=== PATIENT | female | born 1960 | race Caucasian/White ===

== ENCOUNTER 2017-05-08 13:43 | Emergency (ER) | payer MEDICAID ==
[~2017-05-08 13:43] MED LIST: ALBU6.7H INH; AMIT-106 PO; CAMP85GE TP; CEPH-572 PO; CHLO50TA24 PO; CYCL-1 PO; DIPH-423 PO; DOXY50CA2 PO; HYDR-569 PO; MECL-111 PO; MUPI15CR12 TOP; NAPR-1166 PO; NITR100C PO; OMEP20TA5 PO; ONDA4TAB12 PO; ONDA8TAB9 PO; PERM60CR19 TP; PHEN-824 PO; PIP1KIT21 TP; PIP1KIT5 TP; PIPE59SH TOP; albut
== END 2017-05-08 14:17 | disposition left against medical advice (07) ==
LOC: ER 13:44
DX: B85.1 Pediculosis due to Pediculus humanus corporis (principal); Z53.21 Procedure and treatment not carried out due to patient leaving prior to being seen by health care provider

== ENCOUNTER → 2017-05-14 | Emergency (ER) | payer MEDICAID ==
[~2017-05-14] VITALS: Ht 165.1 cm; Wt 57.1 kg
[2017-05-14 05:55] VITALS: BP 115/79
== END | disposition left against medical advice (07) ==
LOC: ER 14:31
DX: R05 Cough (principal); J00 Acute nasopharyngitis [common cold]; R68.89 Other general symptoms and signs; Z53.21 Procedure and treatment not carried out due to patient leaving prior to being seen by health care provider
CPT/HCPCS: 99281

== ENCOUNTER 2017-06-21 12:17 | Emergency (ER) | payer MEDICAID ==
[~2017-06-21 12:17] MED LIST changes: +ONDA4TAB9 PO; +PROC5TAB56 PO
== END 2017-06-21 15:20 | disposition left against medical advice (07) ==
LOC: ER 12:18
DX: L02.818 Cutaneous abscess of other sites (principal); Z53.21 Procedure and treatment not carried out due to patient leaving prior to being seen by health care provider

== ENCOUNTER 2017-06-23 08:53 | Emergency (ER) | payer MEDICAID ==
[~2017-06-23] VITALS: Ht 165.1 cm; Wt 55.9 kg
[2017-06-23] MEDS ORDERED: CLIN-80 PO (09:37)
[2017-06-23] MEDS ORDERED: PERM60CR19 TP (09:37)
[2017-06-23 09:50] VITALS: BP 124/80
== END 2017-06-23 09:51 | disposition home or self-care (01) ==
LOC: ER 09:01
DX: L02.414 Cutaneous abscess of left upper limb (principal); B86 Scabies; K21.9 Gastro-esophageal reflux disease without esophagitis; G89.29 Other chronic pain; F12.10 Cannabis abuse, uncomplicated; F15.10 Other stimulant abuse, uncomplicated; F11.10 Opioid abuse, uncomplicated; Z90.710 Acquired absence of both cervix and uterus; Z86.14 Personal history of Methicillin resistant Staphylococcus aureus infection; Z86.19 Personal history of other infectious and parasitic diseases; Z60.2 Problems related to living alone; Z59.0 Homelessness; Z88.6 Allergy status to analgesic agent; Z88.8 Allergy status to other drugs, medicaments and biological substances; Z79.899 Other long term (current) drug therapy
CPT/HCPCS: 99283

== ENCOUNTER 2017-07-12 05:51 | Emergency (ER) | payer MEDICAID ==
[~2017-07-12] VITALS: Ht 165.1 cm; Wt 54.2 kg
[~2017-07-12 05:51] MED LIST changes: +CLIN-80 PO; -ONDA4TAB9 PO
[2017-07-12] MEDS ORDERED: ondansetron 4mg rapidly disintigrating tab PO ONE (08:35)
[2017-07-12] MEDS ORDERED: hydrOXYzine 25 MG tablet PO PRN (08:35)
[2017-07-12] MEDS ORDERED: HYDR-3686 PO (08:43)
[2017-07-12] MEDS ORDERED: ONDA8TAB9 PO (08:43)
[2017-07-12 09:11] VITALS: BP 120/81
== END 2017-07-12 09:16 | disposition home or self-care (01) ==
LOC: ER 05:52
DX: R42 Dizziness and giddiness (principal); K21.9 Gastro-esophageal reflux disease without esophagitis; G89.29 Other chronic pain; F17.200 Nicotine dependence, unspecified, uncomplicated; F12.10 Cannabis abuse, uncomplicated; F15.10 Other stimulant abuse, uncomplicated; F11.10 Opioid abuse, uncomplicated; Z90.710 Acquired absence of both cervix and uterus; Z86.14 Personal history of Methicillin resistant Staphylococcus aureus infection; Z60.2 Problems related to living alone; Z59.0 Homelessness; Z88.8 Allergy status to other drugs, medicaments and biological substances; Z88.1 Allergy status to other antibiotic agents; Z88.6 Allergy status to analgesic agent; Z79.899 Other long term (current) drug therapy
CPT/HCPCS: 99284; Q0177

== ENCOUNTER 2017-07-22 21:25 | Emergency (ER) | payer MEDICAID ==
[~2017-07-22] VITALS: Ht 165.1 cm; Wt 55.5 kg
[~2017-07-22 21:25] MED LIST changes: +HYDR-3686 PO
[2017-07-22 22:33] VITALS: BP 150/75
== END 2017-07-22 23:10 | disposition home or self-care (01) ==
LOC: ER 21:26
DX: F20.9 Schizophrenia, unspecified (principal); F41.9 Anxiety disorder, unspecified; F31.9 Bipolar disorder, unspecified; G89.29 Other chronic pain; K21.9 Gastro-esophageal reflux disease without esophagitis; Z86.14 Personal history of Methicillin resistant Staphylococcus aureus infection; Z90.710 Acquired absence of both cervix and uterus; Z90.89 Acquired absence of other organs; F12.10 Cannabis abuse, uncomplicated; F11.10 Opioid abuse, uncomplicated; F15.10 Other stimulant abuse, uncomplicated; Z88.6 Allergy status to analgesic agent; Z88.1 Allergy status to other antibiotic agents; Z88.8 Allergy status to other drugs, medicaments and biological substances; Z79.899 Other long term (current) drug therapy; Z60.2 Problems related to living alone; Z59.0 Homelessness
CPT/HCPCS: 99284

== ENCOUNTER 2017-07-27 23:53 | Emergency (ER) | payer MEDICAID ==
[~2017-07-27] VITALS: Ht 165.1 cm; Wt 50.0 kg
[2017-07-28] MEDS ORDERED: aspirin 325mg tablet PO ONE (02:05)
[2017-07-28] MEDS ORDERED: ONDA8TAB13 PO (02:05)
[2017-07-28] MEDS ORDERED: ondansetron 4mg rapidly disintigrating tab PO ONE (02:05)
[2017-07-28 02:30] VITALS: BP 128/77
== END 2017-07-28 02:32 | disposition home or self-care (01) ==
LOC: ER 23:53
DX: B34.9 Viral infection, unspecified (principal); F12.10 Cannabis abuse, uncomplicated; F15.10 Other stimulant abuse, uncomplicated; F11.10 Opioid abuse, uncomplicated; G89.29 Other chronic pain; K21.9 Gastro-esophageal reflux disease without esophagitis; Z86.14 Personal history of Methicillin resistant Staphylococcus aureus infection; Z90.710 Acquired absence of both cervix and uterus; Z90.89 Acquired absence of other organs; Z88.6 Allergy status to analgesic agent; Z88.1 Allergy status to other antibiotic agents; Z88.8 Allergy status to other drugs, medicaments and biological substances; Z79.899 Other long term (current) drug therapy; Z59.0 Homelessness; Z60.2 Problems related to living alone
CPT/HCPCS: 99284

== ENCOUNTER 2017-07-31 13:00 | Emergency (ER) | payer MEDICAID ==
[~2017-07-31] VITALS: Ht 160 cm; Wt 50.0 kg
[~2017-07-31 13:00] MED LIST changes: +ONDA8TAB13 PO
[2017-07-31 13:10] VITALS: BP 112/63
[2017-07-31] MEDS ORDERED: CefTRIAXone 250MG IM Kit w/LIDOcaine IM ONE (13:20)
[2017-07-31] MEDS ORDERED: DOXY100C43 PO (13:21)
[2017-07-31 14:24] LABS: CLARITY,URINE CLEAR (Clear); COLOR,URINE YELLOW (Yellow); GLUCOSE, URINE NEGATIVE (Neg); KETONES,URINE TRACE mg/dl (Neg); LEUKOCYTE ESTERASE ,URINE NEGATIVE (Neg); NITRITES, URINE NEGATIVE (Neg); OCCULT BLOOD,URINE NEGATIVE (Neg); PH,URINE 5.5 (4.8-8.0); PROTEIN,URINE 30 mg/dl (Neg)
[2017-07-31 14:25] LABS: UA COLLECTION TYPE CLN CATCH MIDSTREAM
[2017-07-31 14:34] LABS: MUCUS STRANDS MODERATE /LPF (Neg); SQUAMOUS EPITHELIAL CELL,UR FEW /LPF (FEW)
[2017-07-31 14:37] LABS: BACTERIA,URINE 1+ /HPF (Neg)
[2017-07-31 14:38] LABS: RBC,URINE 0-2 /HPF (0-2); WBC,URINE 0-4 /HPF (0-4)
== END 2017-07-31 14:14 | disposition home or self-care (01) ==
LOC: ER 13:00
DX: A64 Unspecified sexually transmitted disease (principal); K21.9 Gastro-esophageal reflux disease without esophagitis; F12.10 Cannabis abuse, uncomplicated; F15.10 Other stimulant abuse, uncomplicated; G89.29 Other chronic pain; Z90.710 Acquired absence of both cervix and uterus; Z59.0 Homelessness; Z88.6 Allergy status to analgesic agent; Z79.899 Other long term (current) drug therapy
CPT/HCPCS: 36415; 81001; 87491; 87591; 96372; 99284; J0696

== ENCOUNTER 2017-09-27 16:29 | Emergency (ER) | payer MEDICAID ==
[~2017-09-27] VITALS: Ht 165.1 cm; Wt 50.0 kg
[2017-09-27 16:50] VITALS: BP 156/92
== END 2017-09-27 18:01 | disposition home or self-care (01) ==
LOC: ER 16:29
DX: S30.850A Superficial foreign body of lower back and pelvis, initial encounter (principal); F12.10 Cannabis abuse, uncomplicated; F15.10 Other stimulant abuse, uncomplicated; F11.10 Opioid abuse, uncomplicated; G89.29 Other chronic pain; K21.9 Gastro-esophageal reflux disease without esophagitis; Z90.710 Acquired absence of both cervix and uterus; Z86.14 Personal history of Methicillin resistant Staphylococcus aureus infection; Z90.89 Acquired absence of other organs; Z88.6 Allergy status to analgesic agent; Z88.1 Allergy status to other antibiotic agents; Z88.8 Allergy status to other drugs, medicaments and biological substances; Z79.899 Other long term (current) drug therapy; Z60.2 Problems related to living alone; Z59.0 Homelessness; W22.8XXA Striking against or struck by other objects, initial encounter; Y93.89 Activity, other specified; Y92.89 Other specified places as the place of occurrence of the external cause; Y99.8 Other external cause status
CPT/HCPCS: 99284

== ENCOUNTER 2017-11-17 14:30 | Emergency (ER) | payer MEDICAID ==
[~2017-11-17] VITALS: Ht 165.1 cm; Wt 52.0 kg
[~2017-11-17 14:30] MED LIST changes: -CLIN-80 PO; +CLIN150C8 PO; +CLIN300C85 PO
[2017-11-17 14:37] VITALS: BP 123/57
[2017-11-17] MEDS ORDERED: ondansetron 4mg rapidly disintigrating tab PO ONE (15:05)
[2017-11-17] MEDS ORDERED: DOXY100C43 PO (15:17)
[2017-11-17] MEDS ORDERED: ONDA4TAB6 PO (15:17)
[2017-11-25] MEDS ORDERED: PERM59LI8 TOP (09:00)
== END 2017-11-17 15:27 | disposition home or self-care (01) ==
LOC: ER 14:30
DX: M54.5 Low back pain (principal); R11.0 Nausea; M79.1 Myalgia; K21.9 Gastro-esophageal reflux disease without esophagitis; G89.29 Other chronic pain; F12.90 Cannabis use, unspecified, uncomplicated; F15.90 Other stimulant use, unspecified, uncomplicated; F11.90 Opioid use, unspecified, uncomplicated; Z90.710 Acquired absence of both cervix and uterus; Z98.51 Tubal ligation status; Z59.0 Homelessness; Z88.8 Allergy status to other drugs, medicaments and biological substances; Z88.1 Allergy status to other antibiotic agents; Z88.6 Allergy status to analgesic agent; Z79.899 Other long term (current) drug therapy
CPT/HCPCS: 99283

== ENCOUNTER 2017-11-29 18:23 | Emergency (ER) | payer MEDICAID ==
[~2017-11-29 18:23] MED LIST changes: +ONDA4TAB6 PO; +PERM59LI8 TOP
== END 2017-11-29 19:13 | disposition left against medical advice (07) ==
LOC: ER 18:24
DX: Z00.8 Encounter for other general examination (principal); Z53.21 Procedure and treatment not carried out due to patient leaving prior to being seen by health care provider

== ENCOUNTER 2017-12-21 16:18 | Emergency (ER) | payer MEDICAID ==
[~2017-12-21] VITALS: Ht 165.1 cm; Wt 48.0 kg
[2017-12-21 16:31] VITALS: BP 119/70
[2017-12-21] MEDS ORDERED: TETanus/Pertussis (Acell)/Diphther VAC/PF (Tdap-Adult) 0.5ml syringe IM ONE (18:40)
[2017-12-21] MEDS ORDERED: acetaminophen 325mg tablet PO ONE (18:40)
[2017-12-21] MEDS ORDERED: sulfamethoxazole/trimethoprim DS (800/160mg) tablet PO ONE (18:40)
[2017-12-21] MEDS ORDERED: SULF1TAB49 PO (18:40)
== END 2017-12-21 18:59 | disposition home or self-care (01) ==
LOC: ER 16:19
DX: S91.332A Puncture wound without foreign body, left foot, initial encounter (principal); L84 Corns and callosities; K21.9 Gastro-esophageal reflux disease without esophagitis; G89.29 Other chronic pain; F12.90 Cannabis use, unspecified, uncomplicated; F15.90 Other stimulant use, unspecified, uncomplicated; F11.90 Opioid use, unspecified, uncomplicated; Z86.19 Personal history of other infectious and parasitic diseases; Z86.14 Personal history of Methicillin resistant Staphylococcus aureus infection; Z90.49 Acquired absence of other specified parts of digestive tract; Z90.710 Acquired absence of both cervix and uterus; Z98.51 Tubal ligation status; Z60.2 Problems related to living alone; Z59.0 Homelessness; Z88.8 Allergy status to other drugs, medicaments and biological substances; Z88.6 Allergy status to analgesic agent; Z88.1 Allergy status to other antibiotic agents; Z79.899 Other long term (current) drug therapy; X58.XXXA Exposure to other specified factors, initial encounter; Y93.89 Activity, other specified; Y92.89 Other specified places as the place of occurrence of the external cause; Y99.8 Other external cause status
CPT/HCPCS: 99283

== ENCOUNTER 2017-12-24 23:41 | Emergency (ER) | payer MEDICAID ==
[~2017-12-24] VITALS: Ht 165.1 cm; Wt 51.0 kg
[~2017-12-24 23:41] MED LIST changes: +SULF1TAB49 PO
[2017-12-24 23:55] VITALS: BP 157/71
[2017-12-25] MEDS ORDERED: acetaminophen 325mg tablet PO ONE (01:00)
== END 2017-12-25 01:40 | disposition home or self-care (01) ==
LOC: ER 23:41
DX: S60.212A Contusion of left wrist, initial encounter (principal); K21.9 Gastro-esophageal reflux disease without esophagitis; G89.29 Other chronic pain; F12.90 Cannabis use, unspecified, uncomplicated; F15.90 Other stimulant use, unspecified, uncomplicated; F11.90 Opioid use, unspecified, uncomplicated; Z86.14 Personal history of Methicillin resistant Staphylococcus aureus infection; Z90.710 Acquired absence of both cervix and uterus; Z90.89 Acquired absence of other organs; Z88.6 Allergy status to analgesic agent; Z88.1 Allergy status to other antibiotic agents; Z88.8 Allergy status to other drugs, medicaments and biological substances; Z79.899 Other long term (current) drug therapy; Z59.0 Homelessness; Z60.2 Problems related to living alone; W01.0XXA Fall on same level from slipping, tripping and stumbling without subsequent striking against object, initial encounter; Y93.89 Activity, other specified; Y92.89 Other specified places as the place of occurrence of the external cause; Y99.8 Other external cause status
CPT/HCPCS: 99282

== ENCOUNTER 2018-01-06 07:41 | Emergency (ER) | payer MEDICAID ==
[~2018-01-06] VITALS: Ht 165.1 cm; Wt 50.5 kg
[~2018-01-06 07:41] MED LIST changes: -SULF1TAB49 PO
[2018-01-06 08:44] VITALS: BP 123/58
[2018-01-07] MEDS ORDERED: DOXY100C2 PO (18:23)
[2018-01-08] MEDS ORDERED: PERM60CR19 TP (13:18)
[2018-01-08] MEDS ORDERED: IVER3TAB2 PO (13:25)
== END 2018-01-06 09:19 | disposition home or self-care (01) ==
LOC: ER 07:42
DX: S52.502A Unspecified fracture of the lower end of left radius, initial encounter for closed fracture (principal); F17.200 Nicotine dependence, unspecified, uncomplicated; F12.10 Cannabis abuse, uncomplicated; F15.10 Other stimulant abuse, uncomplicated; F11.10 Opioid abuse, uncomplicated; K21.9 Gastro-esophageal reflux disease without esophagitis; G89.29 Other chronic pain; M54.9 Dorsalgia, unspecified; Z90.710 Acquired absence of both cervix and uterus; Z59.0 Homelessness; Z98.51 Tubal ligation status; Z88.6 Allergy status to analgesic agent; Z88.1 Allergy status to other antibiotic agents; Z88.8 Allergy status to other drugs, medicaments and biological substances; W18.30XA Fall on same level, unspecified, initial encounter; Y93.89 Activity, other specified; Y92.89 Other specified places as the place of occurrence of the external cause; Y99.8 Other external cause status
CPT/HCPCS: 29125; 99284; A4565

== ENCOUNTER 2018-01-18 11:00 | Outpatient (CLI) | payer MEDICAID ==
[2018-01-18 11:00] VITALS: BP 119/61
[~2018-01-18 11:00] MED LIST changes: +DOXY100C2 PO; +IVER3TAB2 PO
== END 2018-01-18 11:52 | disposition home or self-care (01) ==
LOC: ORTHO 11:00
PROVIDERS: ATTEND Nurse Practitioner Family
DX: S52.572A Other intraarticular fracture of lower end of left radius, initial encounter for closed fracture (principal); F17.210 Nicotine dependence, cigarettes, uncomplicated; F12.90 Cannabis use, unspecified, uncomplicated; Z59.0 Homelessness; Z56.0 Unemployment, unspecified; Z60.2 Problems related to living alone; Z88.1 Allergy status to other antibiotic agents; Z88.8 Allergy status to other drugs, medicaments and biological substances; Z90.710 Acquired absence of both cervix and uterus; Z88.6 Allergy status to analgesic agent; X58.XXXA Exposure to other specified factors, initial encounter; Y93.89 Activity, other specified; Y92.89 Other specified places as the place of occurrence of the external cause; Y99.8 Other external cause status
CPT/HCPCS: 73110; 99213; A4590

== ENCOUNTER 2018-01-27 17:15 | Emergency (ER) | payer MEDICAID ==
[~2018-01-27] VITALS: Ht 165.1 cm; Wt 51.0 kg
[~2018-01-27 17:15] MED LIST changes: -DOXY100C2 PO
[2018-01-27 17:22] VITALS: BP 115/53
[2018-01-27] MEDS ORDERED: diphenhydrAMINE 50 mg/ml inj IM ONE (17:35)
== END 2018-01-27 17:50 | disposition home or self-care (01) ==
LOC: ER 17:16
DX: T63.481A Toxic effect of venom of other arthropod, accidental (unintentional), initial encounter (principal); M79.602 Pain in left arm; K21.9 Gastro-esophageal reflux disease without esophagitis; G89.29 Other chronic pain; M54.9 Dorsalgia, unspecified; F12.90 Cannabis use, unspecified, uncomplicated; Z90.710 Acquired absence of both cervix and uterus; Z98.51 Tubal ligation status; Z90.89 Acquired absence of other organs; Z59.0 Homelessness; Z56.0 Unemployment, unspecified; Z88.6 Allergy status to analgesic agent; Z88.1 Allergy status to other antibiotic agents; Z88.8 Allergy status to other drugs, medicaments and biological substances; Y92.89 Other specified places as the place of occurrence of the external cause
CPT/HCPCS: 96372; 99283; J1200

== ENCOUNTER 2018-01-30 14:27 | Emergency (ER) | payer MEDICAID ==
[~2018-01-30] VITALS: Ht 165.1 cm; Wt 51.0 kg
[2018-01-30 14:54] VITALS: BP 117/59
== END 2018-01-30 15:33 | disposition left against medical advice (07) ==
LOC: ER 14:29
DX: M25.532 Pain in left wrist (principal); Z53.21 Procedure and treatment not carried out due to patient leaving prior to being seen by health care provider

== ENCOUNTER 2018-03-18 09:50 | Emergency (ER) | payer MEDICAID ==
[~2018-03-18] VITALS: Ht 165.1 cm; Wt 50.0 kg
[~2018-03-18 09:50] MED LIST changes: +ACET-812 PO; +HYDR-4383 PO; -HYDR-569 PO
[2018-03-18 09:53] VITALS: BP 118/62
[2018-03-18] MEDS ORDERED: DOXY100C43 PO (11:01)
[2018-03-18] MEDS ORDERED: FLUT1BLS3 INH (11:01)
[2018-03-18] MEDS ORDERED: ALBU8.5H8 IH (11:01)
== END 2018-03-18 11:08 | disposition home or self-care (01) ==
LOC: ER 09:51
DX: M79.642 Pain in left hand (principal); J44.9 Chronic obstructive pulmonary disease, unspecified; R05 Cough; K21.9 Gastro-esophageal reflux disease without esophagitis; G89.29 Other chronic pain; F12.90 Cannabis use, unspecified, uncomplicated; F17.210 Nicotine dependence, cigarettes, uncomplicated; Z59.0 Homelessness; Z56.0 Unemployment, unspecified; Z87.01 Personal history of pneumonia (recurrent); Z90.710 Acquired absence of both cervix and uterus; Z98.51 Tubal ligation status; Z79.899 Other long term (current) drug therapy; Z88.1 Allergy status to other antibiotic agents; Z88.6 Allergy status to analgesic agent
CPT/HCPCS: 71045; 73130; 99284

== ENCOUNTER 2018-04-01 19:31 | Emergency (ER) | payer MEDICAID ==
[~2018-04-01] VITALS: Ht 165.1 cm; Wt 51.3 kg
[~2018-04-01 19:31] MED LIST changes: -ACET-812 PO; +ALBU8.5H8 IH; +FLUT1BLS3 INH
[2018-04-01 19:37] VITALS: BP 126/51
[2018-04-01] MEDS ORDERED: naproxen 500mg tablet PO ONE (21:35)
== END 2018-04-01 21:45 | disposition home or self-care (01) ==
LOC: ER 19:32
DX: M25.552 Pain in left hip (principal); R51 Headache; M54.5 Low back pain; K21.9 Gastro-esophageal reflux disease without esophagitis; G89.29 Other chronic pain; F12.90 Cannabis use, unspecified, uncomplicated; F17.200 Nicotine dependence, unspecified, uncomplicated; Z88.1 Allergy status to other antibiotic agents; Z88.6 Allergy status to analgesic agent; Z88.8 Allergy status to other drugs, medicaments and biological substances; Z79.899 Other long term (current) drug therapy; Z90.710 Acquired absence of both cervix and uterus; Z98.51 Tubal ligation status; Z90.89 Acquired absence of other organs; Z56.0 Unemployment, unspecified; Z59.0 Homelessness; Z60.2 Problems related to living alone; Z87.440 Personal history of urinary (tract) infections; Y04.8XXA Assault by other bodily force, initial encounter; Y93.89 Activity, other specified; Y92.098 Other place in other non-institutional residence as the place of occurrence of the external cause; Y99.8 Other external cause status
CPT/HCPCS: 99282

== ENCOUNTER 2018-04-23 16:15 | Emergency (ER) | payer MEDICAID ==
[~2018-04-23] VITALS: Ht 165.1 cm; Wt 50.0 kg
[2018-04-23 17:12] VITALS: BP 131/35
== END 2018-04-23 18:30 | disposition home or self-care (01) ==
LOC: ER 16:16
DX: F41.9 Anxiety disorder, unspecified (principal); F32.9 Major depressive disorder, single episode, unspecified; R45.1 Restlessness and agitation; L98.8 Other specified disorders of the skin and subcutaneous tissue; K21.9 Gastro-esophageal reflux disease without esophagitis; G89.29 Other chronic pain; F20.9 Schizophrenia, unspecified; F12.90 Cannabis use, unspecified, uncomplicated; Z76.0 Encounter for issue of repeat prescription; Z59.0 Homelessness; Z56.0 Unemployment, unspecified; Z88.8 Allergy status to other drugs, medicaments and biological substances; Z88.6 Allergy status to analgesic agent; Z79.899 Other long term (current) drug therapy
CPT/HCPCS: 99284

== ENCOUNTER 2018-05-12 16:25 | Emergency (ER) | payer MEDICAID ==
[~2018-05-12] VITALS: Ht 165.1 cm; Wt 55.1 kg
[2018-05-12 16:33] VITALS: BP 139/65
[2018-05-12] MEDS ORDERED: loperamide 2mg capsule PO ONE (17:00)
[2018-05-12] MEDS ORDERED: LOPE2TAB25 PO (17:07)
== END 2018-05-12 17:30 | disposition home or self-care (01) ==
LOC: ER 16:26
DX: R19.7 Diarrhea, unspecified (principal); R10.9 Unspecified abdominal pain; R06.02 Shortness of breath; R50.9 Fever, unspecified; K21.9 Gastro-esophageal reflux disease without esophagitis; G89.29 Other chronic pain; Z86.14 Personal history of Methicillin resistant Staphylococcus aureus infection; F12.90 Cannabis use, unspecified, uncomplicated; Z90.710 Acquired absence of both cervix and uterus; Z90.89 Acquired absence of other organs; Z98.51 Tubal ligation status; Z88.1 Allergy status to other antibiotic agents; Z88.6 Allergy status to analgesic agent; Z88.8 Allergy status to other drugs, medicaments and biological substances; Z79.899 Other long term (current) drug therapy; Z56.0 Unemployment, unspecified; Z59.0 Homelessness; Z60.2 Problems related to living alone
CPT/HCPCS: 99284

== ENCOUNTER 2018-06-19 19:43 | Emergency (ER) | payer MEDICAID ==
[~2018-06-19] VITALS: Ht 165.1 cm; Wt 56.8 kg
[~2018-06-19 19:43] MED LIST changes: +LOPE2TAB25 PO
[2018-06-19 20:05] VITALS: BP 143/75
--- NOTE | 2018-06-19 20:09 | NUR ---
I GAVE PT A PAIR OF SOCKS.
== END 2018-06-19 22:39 | disposition home or self-care (01) ==
LOC: ER 19:45
DX: F20.9 Schizophrenia, unspecified (principal); F31.9 Bipolar disorder, unspecified; F41.9 Anxiety disorder, unspecified; K21.9 Gastro-esophageal reflux disease without esophagitis; G89.29 Other chronic pain; F12.90 Cannabis use, unspecified, uncomplicated; Z88.8 Allergy status to other drugs, medicaments and biological substances; Z88.6 Allergy status to analgesic agent; Z79.899 Other long term (current) drug therapy; Z90.710 Acquired absence of both cervix and uterus; Z98.51 Tubal ligation status; Z90.89 Acquired absence of other organs; Z59.0 Homelessness; Z56.0 Unemployment, unspecified; Z60.2 Problems related to living alone; Z87.19 Personal history of other diseases of the digestive system
CPT/HCPCS: 99284

== ENCOUNTER 2018-07-02 07:32 | Emergency (ER) | payer MEDICAID ==
[~2018-07-02] VITALS: Ht 165.1 cm; Wt 68.2 kg
[2018-07-02 07:35] VITALS: BP 105/66
[2018-07-02] MEDS ORDERED: pantoprazole 40mg Tablet.DR PO ONE (07:55)
[2018-07-02] MEDS ORDERED: famotidine 20mg tablet PO ONE (07:55)
[2018-07-02] MEDS ORDERED: mag hydrox/Alum hydrox/simeth 30ml oral suspension PO ONE (07:55)
[2018-07-02] MEDS ORDERED: LIDOcaine Viscous 15ml cup PO ONE (07:55)
[2018-07-02] MEDS ORDERED: RANI150T44 PO (08:11)
--- NOTE | 2018-07-02 08:20 | NUR ---
Pt requested to go to cafeteria to purchase breakfast. Spoke with security, who stated that because of the pt previously trespassing in the hospital she would not be allowed in our cafeteria. When I told this to the pt, she stated that "what assholes, you guys are all assholes". She then took the sack lunch from my hand and ambulated out of the ED with steady gait.
--- NOTE | 2018-07-02 08:22 | NUR ---
Pt now requesting bus pass from ER registration. Pt given bus pass.
== END 2018-07-02 08:28 | disposition home or self-care (01) ==
LOC: ER 07:33
DX: K21.9 Gastro-esophageal reflux disease without esophagitis (principal); G89.29 Other chronic pain; F12.90 Cannabis use, unspecified, uncomplicated; Z88.1 Allergy status to other antibiotic agents; Z88.8 Allergy status to other drugs, medicaments and biological substances; Z88.6 Allergy status to analgesic agent; Z79.899 Other long term (current) drug therapy; Z87.19 Personal history of other diseases of the digestive system; Z90.710 Acquired absence of both cervix and uterus; Z90.89 Acquired absence of other organs; Z98.51 Tubal ligation status; Z60.2 Problems related to living alone; Z56.0 Unemployment, unspecified; Z59.0 Homelessness; Z87.440 Personal history of urinary (tract) infections
CPT/HCPCS: 93005; 99284

== ENCOUNTER 2018-07-02 23:51 | Emergency (ER) | payer MEDICAID ==
[~2018-07-02] VITALS: Ht 165.1 cm; Wt 45.0 kg
[~2018-07-02 23:51] MED LIST changes: +CLIN-96 PO; -CLIN300C85 PO; +RANI150T44 PO
[2018-07-03 00:06] VITALS: BP 128/59
[2018-07-03] MEDS ORDERED: LORazepam 1 MG tablet PO ONE ×2 (00:55→01:00)
--- NOTE | 2018-07-03 04:00 | NUR ---
Patient states she is not acutally suicidal and that really just needs a place stay, but the [facility] kicked her out. After calling the [facility], it was decided that she can return in the morning for breakfast. She will then be able to attend the drug and alcohol meeting for potential addmission into the [facility]. Patient stated that she was interested in using these resources.
== END 2018-07-03 04:22 | disposition home or self-care (01) ==
LOC: ER 23:52
DX: R45.851 Suicidal ideations (principal); F41.9 Anxiety disorder, unspecified; F32.9 Major depressive disorder, single episode, unspecified; F20.9 Schizophrenia, unspecified; K21.9 Gastro-esophageal reflux disease without esophagitis; G89.29 Other chronic pain; F12.90 Cannabis use, unspecified, uncomplicated; Z88.1 Allergy status to other antibiotic agents; Z88.6 Allergy status to analgesic agent; Z88.8 Allergy status to other drugs, medicaments and biological substances; Z79.899 Other long term (current) drug therapy; Z60.2 Problems related to living alone; Z59.0 Homelessness; Z56.0 Unemployment, unspecified; Z86.14 Personal history of Methicillin resistant Staphylococcus aureus infection; Z86.19 Personal history of other infectious and parasitic diseases; Z90.710 Acquired absence of both cervix and uterus; Z98.51 Tubal ligation status
CPT/HCPCS: 99282

== ENCOUNTER 2018-08-29 21:20 | Emergency (ER) | payer MEDICAID | END 2018-08-29 21:50 | disposition left against medical advice (07) | LOC: ER 21:21 | DX: Z53.21 Procedure and treatment not carried out due to patient leaving prior to being seen by health care provider (principal) ==

== ENCOUNTER 2018-09-12 22:37 | Emergency (ER) | payer MEDICAID ==
[~2018-09-12] VITALS: Ht 165.1 cm; Wt 57.6 kg
[2018-09-12 23:11] VITALS: BP 146/67
[2018-09-13] MEDS ORDERED: diphenhydrAMINE 25mg capsule PO ONE (01:20)
[2018-09-13] MEDS ORDERED: LORazepam 1 MG tablet PO ONE (01:20)
== END 2018-09-13 02:11 | disposition home or self-care (01) ==
LOC: ER 22:38
DX: R21 Rash and other nonspecific skin eruption (principal); F12.90 Cannabis use, unspecified, uncomplicated; K21.9 Gastro-esophageal reflux disease without esophagitis; G89.29 Other chronic pain; Z86.14 Personal history of Methicillin resistant Staphylococcus aureus infection; Z90.710 Acquired absence of both cervix and uterus; Z90.89 Acquired absence of other organs; Z98.51 Tubal ligation status; Z88.6 Allergy status to analgesic agent; Z88.1 Allergy status to other antibiotic agents; Z88.8 Allergy status to other drugs, medicaments and biological substances; Z79.899 Other long term (current) drug therapy; Z56.0 Unemployment, unspecified; Z59.0 Homelessness; Z60.2 Problems related to living alone
CPT/HCPCS: 99283; Q0163

== ENCOUNTER 2018-09-21 10:37 | Emergency (ER) | payer MEDICAID ==
[~2018-09-21] VITALS: Ht 165.1 cm; Wt 50.0 kg
[2018-09-21] MEDS ORDERED: hydrOXYzine 10 MG tablet PO ONE (11:40)
[2018-09-21] MEDS ORDERED: HYDR-3686 PO (11:58)
[2018-09-21 12:35] VITALS: BP 130/60
== END 2018-09-21 12:20 | disposition home or self-care (01) ==
LOC: ER 10:37
DX: L29.9 Pruritus, unspecified (principal); L08.89 Other specified local infections of the skin and subcutaneous tissue; F15.90 Other stimulant use, unspecified, uncomplicated; K21.9 Gastro-esophageal reflux disease without esophagitis; G89.29 Other chronic pain; F12.90 Cannabis use, unspecified, uncomplicated; Z59.0 Homelessness; Z86.14 Personal history of Methicillin resistant Staphylococcus aureus infection; Z86.19 Personal history of other infectious and parasitic diseases; Z90.710 Acquired absence of both cervix and uterus; Z90.49 Acquired absence of other specified parts of digestive tract; Z98.51 Tubal ligation status; Z56.0 Unemployment, unspecified; Z60.2 Problems related to living alone; Z88.8 Allergy status to other drugs, medicaments and biological substances; Z79.899 Other long term (current) drug therapy
CPT/HCPCS: 99283

== ENCOUNTER 2018-10-07 17:30 | Emergency (ER) | payer MEDICAID ==
[~2018-10-07] VITALS: Ht 165.1 cm; Wt 50.0 kg
[~2018-10-07 17:30] MED LIST changes: -AMIT-106 PO; +AMIT25TA9 PO; +RANI-648 PO; -RANI150T44 PO
[2018-10-07 17:47] VITALS: BP 130/70
[2018-10-07] MEDS ORDERED: MUPI22OI30 TOP (17:53)
== END 2018-10-08 18:05 | disposition home or self-care (01) ==
LOC: ER 10-08 00:28
DX: L08.9 Local infection of the skin and subcutaneous tissue, unspecified (principal); F15.10 Other stimulant abuse, uncomplicated; K21.9 Gastro-esophageal reflux disease without esophagitis; G89.29 Other chronic pain; Z86.14 Personal history of Methicillin resistant Staphylococcus aureus infection; F12.90 Cannabis use, unspecified, uncomplicated; Z90.89 Acquired absence of other organs; Z90.710 Acquired absence of both cervix and uterus; Z98.51 Tubal ligation status; Z88.6 Allergy status to analgesic agent; Z88.1 Allergy status to other antibiotic agents; Z88.8 Allergy status to other drugs, medicaments and biological substances; Z79.899 Other long term (current) drug therapy; Z56.0 Unemployment, unspecified; Z59.0 Homelessness; Z60.2 Problems related to living alone
CPT/HCPCS: 99283

== ENCOUNTER 2018-10-14 07:08 | Emergency (ER) | payer MEDICAID ==
[~2018-10-14] VITALS: Ht 165.1 cm; Wt 50.0 kg
[~2018-10-14 07:08] MED LIST changes: +MUPI22OI30 TOP
--- NOTE | 2018-10-14 09:30 | NUR ---
CLEANED PT FEET WITH WARM CLOTHS, ONLY HAD SIZE 8 FLIP FLOPS AND PT REFUSED LARGER SIZE, GAVE CUP OF COFFEE AND COMPLAINED THAT I DID NOT PUT ENOUGH SUGAR IN IT AND I PUT WHAT SHE ASKED, GAVE A BAG OF FOOD AND PT CONTINUED TO CURSE AND THROW THINGS ON THE FLOOR.
[2018-10-14 09:32] VITALS: BP 133/88
== END 2018-10-14 09:38 | disposition home or self-care (01) ==
LOC: ER 07:09
DX: L85.1 Acquired keratosis [keratoderma] palmaris et plantaris (principal); K21.9 Gastro-esophageal reflux disease without esophagitis; G89.29 Other chronic pain; F12.90 Cannabis use, unspecified, uncomplicated; F15.90 Other stimulant use, unspecified, uncomplicated; Z59.0 Homelessness; Z56.0 Unemployment, unspecified; Z90.710 Acquired absence of both cervix and uterus; Z98.51 Tubal ligation status; Z86.14 Personal history of Methicillin resistant Staphylococcus aureus infection; Z88.1 Allergy status to other antibiotic agents; Z88.6 Allergy status to analgesic agent; Z88.8 Allergy status to other drugs, medicaments and biological substances
CPT/HCPCS: 99283

== ENCOUNTER 2018-11-16 07:07 | Emergency (ER) | payer MEDICAID ==
[~2018-11-16 07:07] MED LIST changes: -MUPI22OI30 TOP
--- NOTE | 2018-11-16 08:18 | NUR ---
PT CALLED X3 TO TRIAGE, NIL. PROVIDER NOTIFIED, NO FURTHER ACTION REQUIRED.
== END 2018-11-16 08:15 | disposition left against medical advice (07) ==
LOC: ER 07:08
DX: Z00.8 Encounter for other general examination (principal); Z53.21 Procedure and treatment not carried out due to patient leaving prior to being seen by health care provider; Z79.899 Other long term (current) drug therapy

== ENCOUNTER 2018-11-27 06:46 | Emergency (ER) | payer MEDICAID ==
[~2018-11-27] VITALS: Ht 165.1 cm; Wt 50.0 kg
[~2018-11-27 06:46] MED LIST changes: -ALBU6.7H INH; +ALBU6.7H9 INH
[2018-11-27 06:48] VITALS: BP 135/69
[2018-11-27] MEDS ORDERED: MUPI22OI30 TOP (07:20)
== END 2018-11-27 07:41 | disposition home or self-care (01) ==
LOC: ER 06:46
DX: M79.672 Pain in left foot (principal); K21.9 Gastro-esophageal reflux disease without esophagitis; G89.29 Other chronic pain; Z86.14 Personal history of Methicillin resistant Staphylococcus aureus infection; F41.9 Anxiety disorder, unspecified; F32.9 Major depressive disorder, single episode, unspecified; F12.90 Cannabis use, unspecified, uncomplicated; F15.90 Other stimulant use, unspecified, uncomplicated; Z90.89 Acquired absence of other organs; Z90.710 Acquired absence of both cervix and uterus; Z98.51 Tubal ligation status; Z88.6 Allergy status to analgesic agent; Z88.1 Allergy status to other antibiotic agents; Z88.8 Allergy status to other drugs, medicaments and biological substances; Z79.899 Other long term (current) drug therapy; Z59.0 Homelessness; Z60.2 Problems related to living alone; Z56.0 Unemployment, unspecified
CPT/HCPCS: 99283

== ENCOUNTER 2018-12-06 10:34 | Emergency (ER) | payer MEDICAID ==
[~2018-12-06] VITALS: Ht 165.1 cm; Wt 55.9 kg
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
[2018-12-06] MEDS ORDERED: LORazepam 1 MG tablet PO ONE (11:30)
[2018-12-06 11:39] VITALS: BP 117/80
== END 2018-12-06 11:47 | disposition home or self-care (01) ==
LOC: ER 10:35
DX: Z60.9 Problem related to social environment, unspecified (principal); K21.9 Gastro-esophageal reflux disease without esophagitis; G89.29 Other chronic pain; F41.9 Anxiety disorder, unspecified; F32.9 Major depressive disorder, single episode, unspecified; F20.9 Schizophrenia, unspecified; F12.90 Cannabis use, unspecified, uncomplicated; F15.90 Other stimulant use, unspecified, uncomplicated; Z59.0 Homelessness; Z56.0 Unemployment, unspecified; Z90.710 Acquired absence of both cervix and uterus; Z98.890 Other specified postprocedural states; Z98.51 Tubal ligation status; Z88.8 Allergy status to other drugs, medicaments and biological substances; Z88.1 Allergy status to other antibiotic agents; Z88.6 Allergy status to analgesic agent; Z79.899 Other long term (current) drug therapy
CPT/HCPCS: 99282

== ENCOUNTER 2018-12-11 00:52 | Emergency (ER) | payer MEDICAID ==
[~2018-12-11] VITALS: Ht 165.1 cm; Wt 68.0 kg
[2018-12-11 00:56] VITALS: BP 122/68
== END 2018-12-11 03:44 | disposition home or self-care (01) ==
LOC: ER 00:53
DX: B19.20 Unspecified viral hepatitis C without hepatic coma (principal); K21.9 Gastro-esophageal reflux disease without esophagitis; G89.29 Other chronic pain; F41.9 Anxiety disorder, unspecified; F32.9 Major depressive disorder, single episode, unspecified; F20.9 Schizophrenia, unspecified; Z86.14 Personal history of Methicillin resistant Staphylococcus aureus infection; F12.90 Cannabis use, unspecified, uncomplicated; F15.90 Other stimulant use, unspecified, uncomplicated; Z90.710 Acquired absence of both cervix and uterus; Z98.51 Tubal ligation status; Z90.89 Acquired absence of other organs; Z60.2 Problems related to living alone; Z59.0 Homelessness; Z56.0 Unemployment, unspecified; Z88.1 Allergy status to other antibiotic agents; Z88.6 Allergy status to analgesic agent; Z88.8 Allergy status to other drugs, medicaments and biological substances; Z79.899 Other long term (current) drug therapy
CPT/HCPCS: 99281

== ENCOUNTER 2019-01-08 02:58 | Emergency (ER) | payer MEDICAID ==
[~2019-01-08] VITALS: Ht 165.1 cm; Wt 55.0 kg
[2019-01-08 03:03] VITALS: BP 135/66
--- NOTE | 2019-01-08 03:08 | NUR ---
SEEN BY MD IN TRIAGE
== END 2019-01-08 03:27 | disposition home or self-care (01) ==
LOC: ER 02:58
DX: R22.40 Localized swelling, mass and lump, unspecified lower limb (principal); K21.9 Gastro-esophageal reflux disease without esophagitis; G89.29 Other chronic pain; F41.9 Anxiety disorder, unspecified; F32.9 Major depressive disorder, single episode, unspecified; F20.9 Schizophrenia, unspecified; F12.90 Cannabis use, unspecified, uncomplicated; F15.90 Other stimulant use, unspecified, uncomplicated; Z86.19 Personal history of other infectious and parasitic diseases; Z86.14 Personal history of Methicillin resistant Staphylococcus aureus infection; Z90.710 Acquired absence of both cervix and uterus; Z98.51 Tubal ligation status; Z98.890 Other specified postprocedural states; Z59.0 Homelessness; Z56.0 Unemployment, unspecified; Z88.5 Allergy status to narcotic agent; Z88.6 Allergy status to analgesic agent; Z88.1 Allergy status to other antibiotic agents; Z88.8 Allergy status to other drugs, medicaments and biological substances; Z79.2 Long term (current) use of antibiotics; Z79.899 Other long term (current) drug therapy
CPT/HCPCS: 99281

== ENCOUNTER 2019-01-18 13:30 | Emergency (ER) | payer MEDICAID ==
[~2019-01-18] VITALS: Ht 165.1 cm; Wt 56.0 kg
[2019-01-18] MEDS ORDERED: ibuprofen tablet 400 MG TABLET PO ONE (14:15)
[2019-01-18 14:25] VITALS: BP 130/62
== END 2019-01-18 14:33 | disposition home or self-care (01) ==
LOC: ER 13:31
DX: G89.29 Other chronic pain (principal); M54.2 Cervicalgia; M25.551 Pain in right hip; M25.552 Pain in left hip; K21.9 Gastro-esophageal reflux disease without esophagitis; F41.9 Anxiety disorder, unspecified; F32.9 Major depressive disorder, single episode, unspecified; F20.9 Schizophrenia, unspecified; F17.200 Nicotine dependence, unspecified, uncomplicated; F12.90 Cannabis use, unspecified, uncomplicated; F15.90 Other stimulant use, unspecified, uncomplicated; Z86.14 Personal history of Methicillin resistant Staphylococcus aureus infection; Z86.19 Personal history of other infectious and parasitic diseases; Z90.710 Acquired absence of both cervix and uterus; Z98.51 Tubal ligation status; Z90.89 Acquired absence of other organs; Z60.2 Problems related to living alone; Z56.0 Unemployment, unspecified; Z59.0 Homelessness; Z88.1 Allergy status to other antibiotic agents; Z88.6 Allergy status to analgesic agent; Z88.8 Allergy status to other drugs, medicaments and biological substances; Z79.899 Other long term (current) drug therapy
CPT/HCPCS: 99282

== ENCOUNTER 2019-02-02 19:28 | Emergency (ER) | payer MEDICAID ==
[~2019-02-02] VITALS: Ht 165.1 cm; Wt 57.3 kg
[~2019-02-02 19:28] MED LIST changes: +CLIN-90 PO; -CLIN-96 PO
[2019-02-02] MEDS ORDERED: BENZ-16 PO (20:42)
[2019-02-02] MEDS ORDERED: ROBDML PO (20:42)
[2019-02-02 20:55] VITALS: BP 158/99
== END 2019-02-02 20:53 | disposition home or self-care (01) ==
LOC: ER 19:28
DX: R05 Cough (principal); R50.9 Fever, unspecified; R09.89 Other specified symptoms and signs involving the circulatory and respiratory systems; M79.18 Myalgia, other site; K21.9 Gastro-esophageal reflux disease without esophagitis; G89.29 Other chronic pain; F41.9 Anxiety disorder, unspecified; F32.9 Major depressive disorder, single episode, unspecified; F20.9 Schizophrenia, unspecified; F12.90 Cannabis use, unspecified, uncomplicated; F15.90 Other stimulant use, unspecified, uncomplicated; Z86.19 Personal history of other infectious and parasitic diseases; Z86.14 Personal history of Methicillin resistant Staphylococcus aureus infection; Z90.710 Acquired absence of both cervix and uterus; Z90.89 Acquired absence of other organs; Z98.51 Tubal ligation status; Z59.0 Homelessness; Z60.2 Problems related to living alone; Z56.0 Unemployment, unspecified; Z88.1 Allergy status to other antibiotic agents; Z88.6 Allergy status to analgesic agent; Z79.899 Other long term (current) drug therapy
CPT/HCPCS: 71045; 99283

== ENCOUNTER 2019-02-27 01:50 | Emergency (ER) | payer MEDICAID ==
[~2019-02-27] VITALS: Ht 165.1 cm; Wt 58.9 kg
[~2019-02-27 01:50] MED LIST changes: +BENZ-16 PO
[2019-02-27] MEDS ORDERED: BACDS PO (02:54)
[2019-02-27 03:08] VITALS: BP 146/68
== END 2019-02-27 03:10 | disposition home or self-care (01) ==
LOC: ER 01:51
DX: L02.31 Cutaneous abscess of buttock (principal); K21.9 Gastro-esophageal reflux disease without esophagitis; G89.29 Other chronic pain; F41.9 Anxiety disorder, unspecified; F32.9 Major depressive disorder, single episode, unspecified; F20.9 Schizophrenia, unspecified; F12.90 Cannabis use, unspecified, uncomplicated; F15.90 Other stimulant use, unspecified, uncomplicated; Z60.2 Problems related to living alone; Z59.0 Homelessness; Z56.0 Unemployment, unspecified; Z86.19 Personal history of other infectious and parasitic diseases; Z90.710 Acquired absence of both cervix and uterus; Z98.51 Tubal ligation status; Z98.890 Other specified postprocedural states; Z88.1 Allergy status to other antibiotic agents; Z88.8 Allergy status to other drugs, medicaments and biological substances; Z79.2 Long term (current) use of antibiotics; Z79.899 Other long term (current) drug therapy
CPT/HCPCS: 99283

== ENCOUNTER 2019-06-25 15:10 | Emergency (ER) | payer MEDICAID ==
[~2019-06-25] VITALS: Ht 165.1 cm; Wt 62.0 kg
[~2019-06-25 15:10] MED LIST changes: -BENZ-16 PO; -MECL-111 PO; +MECL-159 PO
--- NOTE | 2019-06-25 15:40 | NUR ---
Registration asked if they had seen Pt. They stated she asked for scissors to cut her pants into shorts. When she was not given the scissors, Pt left the ED.
[2019-06-25 15:51] VITALS: BP 114/62
== END 2019-06-25 16:45 | disposition home or self-care (01) ==
LOC: ER 15:10
DX: Z00.00 Encounter for general adult medical examination without abnormal findings (principal); K21.9 Gastro-esophageal reflux disease without esophagitis; G89.29 Other chronic pain; F41.9 Anxiety disorder, unspecified; F32.9 Major depressive disorder, single episode, unspecified; F20.9 Schizophrenia, unspecified; F12.90 Cannabis use, unspecified, uncomplicated; F15.90 Other stimulant use, unspecified, uncomplicated; Z86.19 Personal history of other infectious and parasitic diseases; Z86.14 Personal history of Methicillin resistant Staphylococcus aureus infection; Z90.710 Acquired absence of both cervix and uterus; Z98.51 Tubal ligation status; Z90.89 Acquired absence of other organs; Z60.2 Problems related to living alone; Z59.0 Homelessness; Z56.0 Unemployment, unspecified; Z88.1 Allergy status to other antibiotic agents; Z88.8 Allergy status to other drugs, medicaments and biological substances; Z79.899 Other long term (current) drug therapy
CPT/HCPCS: 99281

== ENCOUNTER 2019-08-25 23:45 | Emergency (ER) | payer MEDICAID ==
[~2019-08-25] VITALS: Ht 165.1 cm; Wt 68.0 kg
[~2019-08-25 23:45] MED LIST changes: -CLIN-90 PO; +CLIN-97 PO
[2019-08-25 23:48] VITALS: BP 144/67
[2019-08-26] MEDS ORDERED: CefTRIAXone 250MG IM Kit w/LIDOcaine IM ONE (00:50)
[2019-08-26] MEDS ORDERED: penicillin G benzathine 1.2 million unit/2ml syringe IM ONE ×2 (00:50)
[2019-08-26] MEDS ORDERED: azithromycin 250mg tablet PO ONE (00:50)
--- NOTE | 2019-08-26 00:55 | NUR ---
pt taken from [facility] to room [address] fuentes for pelvic exam. pelvic bed moved to room and patient instructed to put on a gown .
--- NOTE | 2019-08-26 01:59 | NUR ---
PATIENT'S CONTACT INFORMATION: [phone]
[2019-08-27] MEDS ORDERED: iohexol 350MG/ML 100ml bottle IV ONE (04:18)
[2019-08-27 07:09] LABS: RPR Non Reactive (Non Reactive)
== END 2019-08-26 01:58 | disposition home or self-care (01) ==
LOC: ER 23:45
DX: A64 Unspecified sexually transmitted disease (principal); A54.02 Gonococcal vulvovaginitis, unspecified; A56.02 Chlamydial vulvovaginitis; A53.9 Syphilis, unspecified; R11.0 Nausea; R50.9 Fever, unspecified; K21.9 Gastro-esophageal reflux disease without esophagitis; G89.29 Other chronic pain; L02.91 Cutaneous abscess, unspecified; B95.62 Methicillin resistant Staphylococcus aureus infection as the cause of diseases classified elsewhere; F41.9 Anxiety disorder, unspecified; F20.9 Schizophrenia, unspecified; F17.200 Nicotine dependence, unspecified, uncomplicated; F12.90 Cannabis use, unspecified, uncomplicated; F15.90 Other stimulant use, unspecified, uncomplicated; Z87.01 Personal history of pneumonia (recurrent); Z86.19 Personal history of other infectious and parasitic diseases; Z87.440 Personal history of urinary (tract) infections; Z90.710 Acquired absence of both cervix and uterus; Z90.89 Acquired absence of other organs; Z98.51 Tubal ligation status; Z60.2 Problems related to living alone; Z56.0 Unemployment, unspecified; Z59.0 Homelessness; Z88.6 Allergy status to analgesic agent; Z88.1 Allergy status to other antibiotic agents; Z88.8 Allergy status to other drugs, medicaments and biological substances; Z79.2 Long term (current) use of antibiotics; Z79.899 Other long term (current) drug therapy
CPT/HCPCS: 36415; 86592; 87491; 87591; 96372; 99284; J0561; J0696; Q9967

== ENCOUNTER 2019-09-13 22:52 | Emergency (ER) | payer MEDICAID ==
[~2019-09-13] VITALS: Ht 165.1 cm; Wt 63.4 kg
[2019-09-13 23:00] VITALS: BP 147/110
== END 2019-09-14 00:06 | disposition home or self-care (01) ==
LOC: ER 22:53
DX: F22 Delusional disorders (principal); L29.8 Other pruritus; K21.9 Gastro-esophageal reflux disease without esophagitis; G89.29 Other chronic pain; F41.9 Anxiety disorder, unspecified; F32.9 Major depressive disorder, single episode, unspecified; F20.9 Schizophrenia, unspecified; F12.90 Cannabis use, unspecified, uncomplicated; F15.90 Other stimulant use, unspecified, uncomplicated; Z87.01 Personal history of pneumonia (recurrent); Z86.19 Personal history of other infectious and parasitic diseases; Z87.440 Personal history of urinary (tract) infections; Z86.14 Personal history of Methicillin resistant Staphylococcus aureus infection; Z90.710 Acquired absence of both cervix and uterus; Z90.89 Acquired absence of other organs; Z98.51 Tubal ligation status; Z56.0 Unemployment, unspecified; Z59.0 Homelessness; Z88.6 Allergy status to analgesic agent; Z88.1 Allergy status to other antibiotic agents; Z88.8 Allergy status to other drugs, medicaments and biological substances; Z79.2 Long term (current) use of antibiotics; Z79.899 Other long term (current) drug therapy
CPT/HCPCS: 99281

== ENCOUNTER 2019-09-19 05:24 | Emergency (ER) | payer MEDICAID ==
[~2019-09-19] VITALS: Ht 165.1 cm; Wt 50.0 kg
[2019-09-19] MEDS ORDERED: methylPREDNISolone sod succ 125mg/2ml vial IV ONE (06:00)
[2019-09-19] MEDS ORDERED: ipratropium/albuterol 3ml nebule NEB ONE (06:00)
--- NOTE | 2019-09-19 06:02 | NUR ---
Dr. Moeller reports the pt states she has been around someone with Covid sympotms j, he will order a swab. placed in enhanced precautions.
[2019-09-19 06:43] LABS: BASOPHILS % (AUTO) 0.5 % (0-1); EOSINOPHILS # (AUTO) 0.1 X10'3 (0-0.9); HEMATOCRIT 40.9 % (35.0-45.0); HEMOGLOBIN 13.6 g/dl (12.0-16.0); LYMPHOCYTES # (AUTO) 0.9 X10'3 (1.1-4.8); LYMPHOCYTES % (AUTO) 28.2 % (21-51); MEAN CORPUSCULAR HEMOGLOBIN 28.6 PG (27.0-31.0); MEAN CORPUSCULAR HGB CONC 33.3 g/dL (33.0-36.5); MEAN PLATELET VOLUME 7.7 FL (7.4-10.4); MONOCYTES # (AUTO) 0.3 X10'3 (0-0.9); MONOCYTES % (AUTO) 8.3 % (2-12); NEUTROPHILS # (AUTO) 1.9 X10'3 (1.8-7.7); PLATELET COUNT 89 X10'3 (140-440); RED BLOOD COUNT 4.76 X10'6 (4.20-5.60); RED CELL DISTRIBUTION WIDTH 14.7 % (11.5-14.5); WHITE BLOOD COUNT 3.2 X10'3 (4.5-11.0)
[2019-09-19 06:53] LABS: PARTIAL THROMBOPLASTIN TIME 27 SECONDS (22-32)
[2019-09-19 06:57] LABS: ALANINE AMINOTRANSFERASE 86 U/L (12-78); ALBUMIN 3.3 G/DL (3.4-5.0); ALBUMIN/GLOBULIN RATIO 0.9 (1.1-1.5); ALKALINE PHOSPHATASE 84 IU/L (46-116); ANION GAP 4 (8-16); ASPARTATE AMINO TRANSFERASE 76 U/L (10-37); BILIRUBIN,TOTAL 0.6 MG/DL (0.1-1.0); BLOOD UREA NITROGEN 10 MG/DL (7-18); BUN/CREATININE RATIO 10.8 (6.6-38.0); CALCIUM 8.8 MG/DL (8.5-10.1); CHLORIDE 107 MMOL/L (99-107); CREATININE 0.93 MG/DL (0.40-0.90); GLUCOSE 86 MG/DL (70-104); POTASSIUM 4.2 MMOL/L (3.5-5.1); SODIUM 140 MMOL/L (135-145); TOTAL CARBON DIOXIDE 28.7 MMOL/L (24-32); TOTAL PROTEIN 7.1 G/DL (6.4-8.2); eGFR 62 ML/MIN
[2019-09-19] MEDS ORDERED: azithromycin 250mg tablet PO ONE (07:10)
[2019-09-19] MEDS ORDERED: PRED20TA PO (07:13)
[2019-09-19] MEDS ORDERED: AZIT250T2 PO (07:13)
[2019-09-19 07:24] VITALS: BP 157/77
--- NOTE | 2019-09-19 07:25 | NUR ---
WAITING RT TX, FOOD GIVEN
== END 2019-09-19 07:49 | disposition home or self-care (01) ==
LOC: ER 05:26
DX: J44.1 Chronic obstructive pulmonary disease with (acute) exacerbation (principal); Z20.828 Contact with and (suspected) exposure to other viral communicable diseases; K21.9 Gastro-esophageal reflux disease without esophagitis; G89.29 Other chronic pain; F41.9 Anxiety disorder, unspecified; F32.9 Major depressive disorder, single episode, unspecified; F20.9 Schizophrenia, unspecified; F12.90 Cannabis use, unspecified, uncomplicated; F15.90 Other stimulant use, unspecified, uncomplicated; Z86.19 Personal history of other infectious and parasitic diseases; Z86.14 Personal history of Methicillin resistant Staphylococcus aureus infection; Z90.710 Acquired absence of both cervix and uterus; Z90.89 Acquired absence of other organs; Z98.51 Tubal ligation status; Z59.0 Homelessness; Z60.2 Problems related to living alone; Z56.0 Unemployment, unspecified; Z88.8 Allergy status to other drugs, medicaments and biological substances; Z88.1 Allergy status to other antibiotic agents; Z88.6 Allergy status to analgesic agent; Z79.899 Other long term (current) drug therapy
CPT/HCPCS: 36415; 71045; 80053; 83880; 84145; 84484; 85025; 85610; 85730; 87635; 93005; 94640; 96374; 99285; J2930; 94760

== ENCOUNTER 2019-10-30 14:35 | Emergency (ER) | payer MEDICAID ==
[~2019-10-30] VITALS: Ht 165.1 cm; Wt 59.0 kg
[2019-10-30 14:38] VITALS: BP 134/84
== END 2019-10-30 15:51 | disposition home or self-care (01) ==
LOC: ER 14:36
DX: J02.9 Acute pharyngitis, unspecified (principal); R50.9 Fever, unspecified; R10.9 Unspecified abdominal pain; K21.9 Gastro-esophageal reflux disease without esophagitis; G89.29 Other chronic pain; F41.9 Anxiety disorder, unspecified; F32.9 Major depressive disorder, single episode, unspecified; F20.9 Schizophrenia, unspecified; F12.90 Cannabis use, unspecified, uncomplicated; F17.290 Nicotine dependence, other tobacco product, uncomplicated; F15.90 Other stimulant use, unspecified, uncomplicated; Z87.01 Personal history of pneumonia (recurrent); Z86.19 Personal history of other infectious and parasitic diseases; Z87.440 Personal history of urinary (tract) infections; Z86.14 Personal history of Methicillin resistant Staphylococcus aureus infection; Z90.710 Acquired absence of both cervix and uterus; Z90.89 Acquired absence of other organs; Z98.51 Tubal ligation status; Z60.2 Problems related to living alone; Z59.0 Homelessness; Z56.0 Unemployment, unspecified; Z88.1 Allergy status to other antibiotic agents; Z88.6 Allergy status to analgesic agent; Z88.8 Allergy status to other drugs, medicaments and biological substances; Z79.2 Long term (current) use of antibiotics; Z79.899 Other long term (current) drug therapy
CPT/HCPCS: 99282; 99406

== ENCOUNTER 2019-12-03 12:46 | Emergency (ER) | payer MEDICAID ==
[~2019-12-03] VITALS: Ht 165.1 cm; Wt 65.9 kg
[2019-12-03 12:53] VITALS: BP 123/68
[2019-12-03] MEDS ORDERED: acetaminophen 325mg tablet PO ONE (13:15)
[2019-12-03] MEDS ORDERED: ALBU6.7H9 INH (13:36)
== END 2019-12-03 14:04 | disposition home or self-care (01) ==
LOC: ER 12:47
DX: R51 Headache (principal); J45.909 Unspecified asthma, uncomplicated; K21.9 Gastro-esophageal reflux disease without esophagitis; G89.29 Other chronic pain; F41.9 Anxiety disorder, unspecified; F32.9 Major depressive disorder, single episode, unspecified; F20.9 Schizophrenia, unspecified; F12.90 Cannabis use, unspecified, uncomplicated; F15.90 Other stimulant use, unspecified, uncomplicated; Z76.0 Encounter for issue of repeat prescription; Z86.14 Personal history of Methicillin resistant Staphylococcus aureus infection; Z86.19 Personal history of other infectious and parasitic diseases; Z90.710 Acquired absence of both cervix and uterus; Z98.51 Tubal ligation status; Z60.2 Problems related to living alone; Z59.0 Homelessness; Z56.0 Unemployment, unspecified; Z90.89 Acquired absence of other organs; Z88.8 Allergy status to other drugs, medicaments and biological substances; Z88.1 Allergy status to other antibiotic agents; Z88.6 Allergy status to analgesic agent; Z79.899 Other long term (current) drug therapy
CPT/HCPCS: 99282

== ENCOUNTER 2020-03-08 14:21 | Emergency (ER) | payer MEDICAID | END 2020-03-08 15:54 | disposition left against medical advice (07) | LOC: ER 14:21 | DX: Z00.01 Encounter for general adult medical examination with abnormal findings (principal); Z53.21 Procedure and treatment not carried out due to patient leaving prior to being seen by health care provider ==

== ENCOUNTER 2020-04-18 14:22 | Emergency (ER) | payer MEDICAID ==
[~2020-04-18] VITALS: Ht 165.1 cm; Wt 63.6 kg
[2020-04-18 14:33] VITALS: BP 154/73
== END 2020-04-18 14:52 | disposition home or self-care (01) ==
LOC: ER 14:23
DX: J00 Acute nasopharyngitis [common cold] (principal); K21.9 Gastro-esophageal reflux disease without esophagitis; Z87.19 Personal history of other diseases of the digestive system; F20.9 Schizophrenia, unspecified; F41.9 Anxiety disorder, unspecified; F32.9 Major depressive disorder, single episode, unspecified; F12.10 Cannabis abuse, uncomplicated; F15.10 Other stimulant abuse, uncomplicated; Z88.1 Allergy status to other antibiotic agents; Z79.899 Other long term (current) drug therapy; Z59.0 Homelessness; Z56.0 Unemployment, unspecified; Z87.448 Personal history of other diseases of urinary system; Z00.01 Encounter for general adult medical examination with abnormal findings
CPT/HCPCS: 99281

== ENCOUNTER 2020-07-17 01:23 | Emergency (ER) | payer MEDICAID ==
[~2020-07-17] VITALS: Ht 165.1 cm; Wt 59.1 kg
[2020-07-17] MEDS ORDERED: normal saline 1000ML IV soln IVB ONE (02:25)
[2020-07-17] MEDS ORDERED: pantoprazole 40 MG vial IV ONE (02:25)
[2020-07-17] MEDS ORDERED: ondansetron/PF 4mg/2ml inj IV ONE (02:25)
--- NOTE | 2020-07-17 02:25 | NUR ---
Dr. Marcus states no food for pt. Pt made aware.
[2020-07-17 03:15] LABS: BASOPHILS % (AUTO) 0.3 % (0-1); EOSINOPHILS # (AUTO) 0.1 X10'3 (0-0.9); EOSINOPHILS % (AUTO) 1.3 % (0-6); HEMATOCRIT 39.9 % (35.0-45.0); HEMOGLOBIN 13.4 g/dl (12.0-16.0); LYMPHOCYTES # (AUTO) 1.1 X10'3 (1.1-4.8); LYMPHOCYTES % (AUTO) 27.5 % (21-51); MEAN CORPUSCULAR HEMOGLOBIN 28.4 PG (27.0-31.0); MEAN CORPUSCULAR HGB CONC 33.6 g/dL (33.0-36.5); MEAN CORPUSCULAR VOLUME 84.4 FL (78-98); MEAN PLATELET VOLUME 7.8 FL (7.4-10.4); MONOCYTES # (AUTO) 0.4 X10'3 (0-0.9); MONOCYTES % (AUTO) 9.4 % (2-12); NEUTROPHILS # (AUTO) 2.4 X10'3 (1.8-7.7); NEUTROPHILS % (AUTO) 61.5 % (42-75); PLATELET COUNT 80 X10'3 (140-440); RED BLOOD COUNT 4.73 X10'6 (4.20-5.60); RED CELL DISTRIBUTION WIDTH 14.1 % (11.5-14.5); WHITE BLOOD COUNT 3.9 X10'3 (4.5-11.0)
[2020-07-17 03:35] LABS: ALANINE AMINOTRANSFERASE 65 U/L (12-78); ALBUMIN 3.3 G/DL (3.4-5.0); ALBUMIN/GLOBULIN RATIO 0.9 (1.1-1.5); ALKALINE PHOSPHATASE 80 IU/L (46-116); ANION GAP 8 (8-16); ASPARTATE AMINO TRANSFERASE 60 U/L (10-37); BILIRUBIN,TOTAL 0.5 MG/DL (0.1-1.0); BLOOD UREA NITROGEN 14 MG/DL (7-18); BUN/CREATININE RATIO 15.9 (6.6-38.0); CALCIUM 8.7 MG/DL (8.5-10.1); CHLORIDE 106 MMOL/L (99-107); CREATININE 0.88 MG/DL (0.40-0.90); GLUCOSE 107 MG/DL (70-104); LIPASE 140 U/L (73-393); POTASSIUM 3.9 MMOL/L (3.5-5.1); SODIUM 139 MMOL/L (135-145); TOTAL CARBON DIOXIDE 24.7 MMOL/L (24-32); eGFR 66 ML/MIN
[2020-07-17] MEDS ORDERED: PANT-47 PO (04:26)
[2020-07-17 04:52] VITALS: BP 132/81
== END 2020-07-17 04:55 | disposition home or self-care (01) ==
LOC: ER 01:24
DX: R10.13 Epigastric pain (principal); R11.10 Vomiting, unspecified; K21.9 Gastro-esophageal reflux disease without esophagitis; G89.29 Other chronic pain; F32.9 Major depressive disorder, single episode, unspecified; F41.9 Anxiety disorder, unspecified; F20.9 Schizophrenia, unspecified; F17.200 Nicotine dependence, unspecified, uncomplicated; F12.90 Cannabis use, unspecified, uncomplicated; F15.90 Other stimulant use, unspecified, uncomplicated; Z86.14 Personal history of Methicillin resistant Staphylococcus aureus infection; Z90.710 Acquired absence of both cervix and uterus; Z98.51 Tubal ligation status; Z60.2 Problems related to living alone; Z59.0 Homelessness; Z56.0 Unemployment, unspecified
CPT/HCPCS: 80053; 83690; 85025; 96374; 96375; 99285; C9113; J2405; J7030

== ENCOUNTER 2021-10-23 00:49 | Emergency (ER) | payer MEDICAID ==
[~2021-10-23] VITALS: Ht 165.1 cm; Wt 61.4 kg
[~2021-10-23 00:49] MED LIST changes: +ALBU8.5H17 IH; -ALBU8.5H8 IH; +OMEP20TA43 PO; -OMEP20TA5 PO; +PANT-47 PO
[2021-10-23 01:05] VITALS: BP 127/64
== END 2021-10-23 05:11 | disposition left against medical advice (07) ==
LOC: ER 00:50
DX: J11.1 Influenza due to unidentified influenza virus with other respiratory manifestations (principal); Z53.21 Procedure and treatment not carried out due to patient leaving prior to being seen by health care provider

== ENCOUNTER 2022-10-28 10:58 | Emergency (ER) | payer MEDICAID ==
[~2022-10-28] VITALS: Ht 165.1 cm; Wt 60.8 kg
[~2022-10-28 10:58] MED LIST changes: +ALBU6.7H14 INH; -ALBU6.7H9 INH; -CHLO50TA24 PO; +CHLO50TA52 PO; +CLIN-214 PO; -CLIN150C8 PO
[2022-10-28 11:12] VITALS: BP 123/73
[2022-10-28] MEDS ORDERED: acetaminophen 325mg tablet PO ONE (11:25)
--- NOTE | 2022-10-28 12:44 | NUR ---
PT PRESENTS TO THE ER WITH COMPLAINTS OF " I FEEL LIKE YOGESH BEEN POISONED, RAT POISON" FROM 5 DAYS AGO. WHEN ASKED IF PATIENT HAD A KNOWN EXPOSURE TO RAT POISON PATIENT SAID NO.
[2022-10-28] MEDS ORDERED: normal saline 1000ML IV soln IVB ONE (13:00)
[2022-10-28] MEDS ORDERED: ondansetron/PF 4mg/2ml inj IV ONE (13:00)
[2022-10-28 13:28] LABS: BASOPHILS % (AUTO) 0.2 % (0-1); EOSINOPHILS % (AUTO) 0 % (0-6); HEMATOCRIT 38.2 % (35.0-45.0); HEMOGLOBIN 13.2 g/dl (12.0-16.0); LYMPHOCYTES # (AUTO) 0.5 X10'3 (1.1-4.8); LYMPHOCYTES % (AUTO) 5.5 % (21-51); MEAN CORPUSCULAR HEMOGLOBIN 28.4 PG (27.0-31.0); MEAN CORPUSCULAR HGB CONC 34.4 g/dL (33.0-36.5); MEAN CORPUSCULAR VOLUME 82.6 FL (78-98); MEAN PLATELET VOLUME 7.9 FL (7.4-10.4); MONOCYTES # (AUTO) 1.3 X10'3 (0-0.9); MONOCYTES % (AUTO) 14.2 % (2-12); NEUTROPHILS # (AUTO) 7.1 X10'3 (1.8-7.7); NEUTROPHILS % (AUTO) 80.1 % (42-75); PLATELET COUNT 93 X10'3 (140-440); RED BLOOD COUNT 4.63 X10'6 (4.20-5.60); RED CELL DISTRIBUTION WIDTH 13.4 % (11.5-14.5); WHITE BLOOD COUNT 8.8 X10'3 (4.5-11.0)
[2022-10-28 13:39] LABS: ALANINE AMINOTRANSFERASE 46 U/L (12-78); ALBUMIN 2.8 G/DL (3.4-5.0); ALBUMIN/GLOBULIN RATIO 0.7 (1.1-1.5); ALKALINE PHOSPHATASE 51 IU/L (46-116); ANION GAP 10 (8-16); ASPARTATE AMINO TRANSFERASE 62 U/L (10-37); BILIRUBIN,TOTAL 1.1 MG/DL (0.1-1.0); BLOOD UREA NITROGEN 22 MG/DL (7-18); BUN/CREATININE RATIO 21.8 (10.0-20.0); CALCIUM 8.6 MG/DL (8.5-10.1); CHLORIDE 99 MMOL/L (99-107); CREATININE 1.01 MG/DL (0.40-0.90); GLUCOSE 131 MG/DL (70-104); POTASSIUM 3.2 MMOL/L (3.5-5.1); SODIUM 130 MMOL/L (135-145); TOTAL CARBON DIOXIDE 21.1 MMOL/L (24-32); TOTAL PROTEIN 6.7 G/DL (6.4-8.2); eGFR 56 ML/MIN
[2022-10-28] MEDS ORDERED: ONDA4TAB12 PO (13:47)
== END 2022-10-28 14:44 | disposition home or self-care (01) ==
LOC: ER 10:59
DX: R11.2 Nausea with vomiting, unspecified (principal); R19.7 Diarrhea, unspecified; R20.0 Anesthesia of skin; G89.29 Other chronic pain; F12.90 Cannabis use, unspecified, uncomplicated; F15.90 Other stimulant use, unspecified, uncomplicated; Z87.19 Personal history of other diseases of the digestive system; Z86.19 Personal history of other infectious and parasitic diseases; Z87.440 Personal history of urinary (tract) infections; Z90.710 Acquired absence of both cervix and uterus; Z98.51 Tubal ligation status; Z56.0 Unemployment, unspecified; Z59.00 Homelessness unspecified; Z79.899 Other long term (current) drug therapy; Z88.8 Allergy status to other drugs, medicaments and biological substances; Z88.1 Allergy status to other antibiotic agents
CPT/HCPCS: 80053; 85025; 96361; 96374; 99283; J2405; J7030

== ENCOUNTER 2023-04-24 11:12 | Emergency (ER) | payer MEDICAID ==
[~2023-04-24] VITALS: Ht 165.1 cm; Wt 50.0 kg
[~2023-04-24 11:12] MED LIST changes: -MECL-159 PO; +MECL-302 PO
[2023-04-24 12:16] VITALS: TEMP 97.8
[2023-04-24 14:04] VITALS: BP 134/78; PULSE 76; O2SAT 97
[2023-04-24] MEDS ORDERED: oxyCODONE/APAP 5-325mg tablet PO ONE (14:40)
[2023-04-24] MEDS ORDERED: ampicillin/sulbac 3gm/NS 100ml 100 ML IV STA (15:12)
[2023-04-24] MEDS ORDERED: LIDOcaine 1% W/epiNEPHrine 1:100,000 20ml vial SQ ONE (15:15)
[2023-04-24] MEDS ORDERED: LIDOCAINE 1%/EPI 1:100,000 inj. 10 ML multi-dose vial SQ ONE (15:20)
[2023-04-24 15:52] LABS: BASOPHILS % (AUTO) 0.4 % (0-1); EOSINOPHILS % (AUTO) 0.7 % (0-6); HEMATOCRIT 41.1 % (35.0-45.0); HEMOGLOBIN 13.6 g/dl (12.0-16.0); LYMPHOCYTES % (AUTO) 15.6 % (21-51); MEAN CORPUSCULAR HEMOGLOBIN 28.2 PG (27.0-31.0); MEAN CORPUSCULAR HGB CONC 33.2 g/dL (33.0-36.5); MEAN CORPUSCULAR VOLUME 84.9 FL (78-98); MEAN PLATELET VOLUME 7.4 FL (7.4-10.4); MONOCYTES # (AUTO) 0.4 X10'3 (0-0.9); MONOCYTES % (AUTO) 6.5 % (2-12); NEUTROPHILS # (AUTO) 5.1 X10'3 (1.8-7.7); NEUTROPHILS % (AUTO) 76.8 % (42-75); PLATELET COUNT 132 X10'3 (140-440); RED BLOOD COUNT 4.84 X10'6 (4.20-5.60); RED CELL DISTRIBUTION WIDTH 13.9 % (11.5-14.5); WHITE BLOOD COUNT 6.7 X10'3 (4.5-11.0)
[2023-04-24 16:04] LABS: ALANINE AMINOTRANSFERASE 26 U/L (12-78); ALBUMIN 3.8 G/DL (3.4-5.0); ALKALINE PHOSPHATASE 77 IU/L (46-116); ANION GAP 7 (8-16); ASPARTATE AMINO TRANSFERASE 25 U/L (10-37); BILIRUBIN,TOTAL 0.4 MG/DL (0.1-1.0); BLOOD UREA NITROGEN 12 MG/DL (7-18); BUN/CREATININE RATIO 12.9 (10.0-20.0); CHLORIDE 103 MMOL/L (99-107); CREATININE 0.93 MG/DL (0.40-0.90); GLUCOSE 112 MG/DL (70-104); POTASSIUM 4.4 MMOL/L (3.5-5.1); SODIUM 137 MMOL/L (135-145); TOTAL CARBON DIOXIDE 26.7 MMOL/L (24-32); TOTAL PROTEIN 7.7 G/DL (6.4-8.2); eCRCL 51 ML/MIN; eGFR 61 ML/MIN
[2023-04-24] MEDS ORDERED: LIDOcaine 1% w/EPI 1:100,000 inj. MDV 50 ML VIAL ONE (16:05)
[2023-04-24 16:18] VITALS: RESP 18
[2023-04-24] MEDS ORDERED: bacitracin 15gm ointment TP ONE (18:45)
[2023-04-24] MEDS ORDERED: OXYC-145 PO (19:15)
[2023-04-24] MEDS ORDERED: AMOX-580 PO (19:15)
== END 2023-04-24 20:21 | disposition home or self-care (01) ==
LOC: ER 11:12
DX: S61.411A Laceration without foreign body of right hand, initial encounter (principal); S71.112A Laceration without foreign body, left thigh, initial encounter; S81.012A Laceration without foreign body, left knee, initial encounter; W54.0XXA Bitten by dog, initial encounter; Y93.89 Activity, other specified; Y92.89 Other specified places as the place of occurrence of the external cause; Y99.8 Other external cause status
CPT/HCPCS: 12002; 12042; 13121; 13122; 36415; 73090; 80053; 85025; 96365; 99285; J0295; J3490; J7030; A6258; A6446; A6449

== ENCOUNTER 2023-05-01 20:44 | Emergency (ER) | payer MEDICAID ==
[~2023-05-01] VITALS: Ht 165.1 cm; Wt 62.7 kg
[~2023-05-01 20:44] MED LIST changes: +AMOX-580 PO; +OXYC-145 PO
[2023-05-01 20:49] VITALS: BP 162/53; PULSE 96; RESP 18; TEMP 98.2; O2SAT 100
== END 2023-05-02 00:54 | disposition left against medical advice (07) ==
LOC: ER 20:45
DX: Z48.00 Encounter for change or removal of nonsurgical wound dressing (principal); Z53.21 Procedure and treatment not carried out due to patient leaving prior to being seen by health care provider
CPT/HCPCS: 99281

== ENCOUNTER 2023-08-17 10:30 | Emergency (ER) | payer MEDICAID ==
[~2023-08-17] VITALS: Ht 165.1 cm; Wt 60.9 kg
[~2023-08-17 10:30] MED LIST changes: -AMOX-580 PO
[2023-08-17 10:38] VITALS: BP 123/63; PULSE 88; RESP 20; TEMP 97.4; O2SAT 99
== END 2023-08-17 13:05 | disposition home or self-care (01) ==
LOC: ER 10:31
DX: R20.0 Anesthesia of skin (principal); G89.29 Other chronic pain; Z90.710 Acquired absence of both cervix and uterus; Z98.51 Tubal ligation status; Z56.0 Unemployment, unspecified; Z59.00 Homelessness unspecified; Z79.899 Other long term (current) drug therapy
CPT/HCPCS: 99281

== ENCOUNTER 2023-10-26 19:44 | Emergency (ER) | payer MEDICAID ==
[~2023-10-26] VITALS: Ht 165.1 cm; Wt 56.1 kg
[2023-10-26 19:52] VITALS: BP 130/82; PULSE 91; RESP 18; TEMP 98.9; O2SAT 99
== END 2023-10-26 22:22 | disposition left against medical advice (07) ==
LOC: ER 19:46
DX: F41.9 Anxiety disorder, unspecified (principal); Z53.21 Procedure and treatment not carried out due to patient leaving prior to being seen by health care provider

== ENCOUNTER 2024-01-31 08:22 | Emergency (ER) | payer MEDICAID ==
[~2024-01-31] VITALS: Ht 165.1 cm; Wt 57.9 kg
[~2024-01-31 08:22] MED LIST changes: +ONDA-243 PO; +ONDA-245 PO; -ONDA4TAB12 PO; -ONDA8TAB13 PO
[2024-01-31 10:02] VITALS: BP 116/52; PULSE 61; O2SAT 94
[2024-01-31] MEDS ORDERED: DIF150T PO (11:03)
[2024-01-31 14:18] VITALS: RESP 16; TEMP 97.5
[2024-02-01] MEDS ORDERED: MICO45CR73 VG (16:04)
== END 2024-01-31 11:20 | disposition home or self-care (01) ==
LOC: ER 08:22
DX: N76.0 Acute vaginitis (principal); B37.31 Acute candidiasis of vulva and vagina; F17.200 Nicotine dependence, unspecified, uncomplicated; F41.9 Anxiety disorder, unspecified; F32.A Depression, unspecified; F20.9 Schizophrenia, unspecified; G89.29 Other chronic pain; M54.9 Dorsalgia, unspecified; K21.9 Gastro-esophageal reflux disease without esophagitis; Z88.8 Allergy status to other drugs, medicaments and biological substances; Z88.1 Allergy status to other antibiotic agents; Z79.899 Other long term (current) drug therapy; Z79.2 Long term (current) use of antibiotics; Z79.1 Long term (current) use of non-steroidal anti-inflammatories (NSAID); Z90.710 Acquired absence of both cervix and uterus; Z98.51 Tubal ligation status; Z60.2 Problems related to living alone; Z59.00 Homelessness unspecified; Z56.0 Unemployment, unspecified
CPT/HCPCS: 99282

== ENCOUNTER 2024-02-21 20:27 | Emergency (ER) | payer MEDICAID ==
[~2024-02-21] VITALS: Ht 165.1 cm; Wt 55.3 kg
[~2024-02-21 20:27] MED LIST changes: +MICO45CR73 VG
[2024-02-21 20:47] VITALS: BP 92/69; PULSE 89; RESP 16; O2SAT 98
[2024-02-21] MEDS ORDERED: FLUC150T22 PO (21:43)
[2024-02-21 21:48] VITALS: TEMP 97.5
[2024-02-21] MEDS: fluconazole 100mg tablet PO ONE (22:10)
== END 2024-02-21 22:18 | disposition home or self-care (01) ==
LOC: ER 20:28
DX: B37.32 Chronic candidiasis of vulva and vagina (principal); G89.29 Other chronic pain; M54.9 Dorsalgia, unspecified; F41.9 Anxiety disorder, unspecified; F32.A Depression, unspecified; K21.9 Gastro-esophageal reflux disease without esophagitis; F12.90 Cannabis use, unspecified, uncomplicated; F15.90 Other stimulant use, unspecified, uncomplicated; F17.210 Nicotine dependence, cigarettes, uncomplicated; Z88.8 Allergy status to other drugs, medicaments and biological substances; Z88.1 Allergy status to other antibiotic agents; Z79.2 Long term (current) use of antibiotics; Z79.52 Long term (current) use of systemic steroids; Z79.899 Other long term (current) drug therapy; Z90.710 Acquired absence of both cervix and uterus; Z98.51 Tubal ligation status; Z59.00 Homelessness unspecified; Z56.0 Unemployment, unspecified; Z60.2 Problems related to living alone
CPT/HCPCS: 99283

== ENCOUNTER 2024-02-29 10:49 | Emergency (ER) | payer MEDICAID ==
[~2024-02-29] VITALS: Ht 165.1 cm; Wt 56.5 kg
[2024-02-29 10:52] VITALS: BP 96/46; PULSE 92; RESP 18; O2SAT 98
[2024-02-29] MEDS ORDERED: penicillin G benzathine 1.2 million unit/2ml syringe IM ONE (12:20)
[2024-02-29] MEDS: PENICILLIN G BENZATHINE 2,400,000 UNIT/4 ML SYRINGE IM ONE (12:41)
[2024-02-29 12:51] VITALS: TEMP 97.9
== END 2024-02-29 12:53 | disposition home or self-care (01) ==
LOC: ER 10:50
DX: A53.9 Syphilis, unspecified (principal); K21.9 Gastro-esophageal reflux disease without esophagitis; G89.29 Other chronic pain; M54.9 Dorsalgia, unspecified; F41.9 Anxiety disorder, unspecified; F32.A Depression, unspecified; F20.9 Schizophrenia, unspecified; F12.90 Cannabis use, unspecified, uncomplicated; F15.90 Other stimulant use, unspecified, uncomplicated; Z88.8 Allergy status to other drugs, medicaments and biological substances; Z88.1 Allergy status to other antibiotic agents; Z79.2 Long term (current) use of antibiotics; Z79.51 Long term (current) use of inhaled steroids; Z79.899 Other long term (current) drug therapy; Z90.710 Acquired absence of both cervix and uterus; Z98.51 Tubal ligation status; Z59.00 Homelessness unspecified; Z56.0 Unemployment, unspecified; Z72.89 Other problems related to lifestyle
CPT/HCPCS: 87210; 96372; 99283; J0561

== ENCOUNTER 2024-03-11 07:58 | Emergency (ER) | payer MEDICAID ==
[~2024-03-11] VITALS: Ht 165.1 cm; Wt 56.0 kg
[2024-03-11 08:12] VITALS: TEMP 98.6
[2024-03-11] MEDS ORDERED: CefTRIAXone 2gm/D5W 50ml BAG 50 ML IV ONE (09:15)
[2024-03-11] MEDS ORDERED: DOXY-460 PO (09:18)
[2024-03-11] MEDS ORDERED: METR-159 PO (09:18)
[2024-03-11] MEDS ORDERED: LACT1CAP60 PO (09:22)
[2024-03-11] MEDS ORDERED: LOPE-190 PO (09:22)
[2024-03-11] MEDS: CefTRIAXone 1000mg IM Kit (w/lidocaine diluent) IM ONE (10:20)
[2024-03-11 10:35] VITALS: BP 153/76; PULSE 76; RESP 18; O2SAT 98
[2024-03-11 10:35] LABS: BILIRUBIN,URINE NEGATIVE (Neg); CLARITY,URINE CLEAR (Clear); COLOR,URINE YELLOW (Yellow); GLUCOSE, URINE NEGATIVE (Neg); KETONES,URINE NEGATIVE (Neg); LEUKOCYTE ESTERASE ,URINE NEGATIVE (Neg); NITRITES, URINE NEGATIVE (Neg); OCCULT BLOOD,URINE TRACE-INTACT (Neg); PH,URINE 6.5 (4.8-8.0); PROTEIN,URINE NEGATIVE (Neg); UROBILINOGEN,URINE 0.2 E.U/dL (0.2-1.0)
[2024-03-11 10:38] LABS: UA COLLECTION TYPE CLN CATCH MIDSTREAM
[2024-03-11 10:39] LABS: BACTERIA,URINE NONE SEEN /HPF (Neg); RBC,URINE 0-2 /HPF (0-2); WBC,URINE NONE SEEN /HPF (0-4)
[2024-03-11 10:40] LABS: SQUAMOUS EPITHELIAL CELL,UR FEW /LPF (FEW)
[2024-03-11 10:52] LABS: SYPHILIS SCREENING TEST POC POSITIVE (Negative)
[2024-03-13 05:41] LABS: CHLAMYDIA TRACHOMATIS, NAA Negative (Negative)
== END 2024-03-11 10:42 | disposition home or self-care (01) ==
LOC: ER 07:58
DX: B37.31 Acute candidiasis of vulva and vagina (principal); B96.89 Other specified bacterial agents as the cause of diseases classified elsewhere; N76.0 Acute vaginitis; K21.9 Gastro-esophageal reflux disease without esophagitis; G89.29 Other chronic pain; F20.9 Schizophrenia, unspecified; F12.90 Cannabis use, unspecified, uncomplicated; F15.90 Other stimulant use, unspecified, uncomplicated; Z88.1 Allergy status to other antibiotic agents; Z88.6 Allergy status to analgesic agent; Z88.8 Allergy status to other drugs, medicaments and biological substances; Z79.899 Other long term (current) drug therapy; Z90.710 Acquired absence of both cervix and uterus
CPT/HCPCS: 36415; 81001; 86592; 87491; 87591; 96372; 99283; J0696

== ENCOUNTER 2024-03-29 10:11 | Emergency (ER) | payer MEDICAID ==
[~2024-03-29] VITALS: Ht 167.6 cm; Wt 61.4 kg
[~2024-03-29 10:11] MED LIST changes: +LACT1CAP60 PO; +LOPE-190 PO
[2024-03-29] MEDS: calamine LOTION TP ONE (11:04)
[2024-03-29 11:13] VITALS: BP 133/78; PULSE 79; RESP 15; TEMP 98; O2SAT 98
== END 2024-03-29 11:15 | disposition home or self-care (01) ==
LOC: ER 10:11
DX: F42.4 Excoriation (skin-picking) disorder (principal); G89.29 Other chronic pain; M54.9 Dorsalgia, unspecified; F41.9 Anxiety disorder, unspecified; F32.A Depression, unspecified; F20.9 Schizophrenia, unspecified; K21.9 Gastro-esophageal reflux disease without esophagitis; F12.90 Cannabis use, unspecified, uncomplicated; F15.90 Other stimulant use, unspecified, uncomplicated; Z56.0 Unemployment, unspecified; Z59.00 Homelessness unspecified; Z72.89 Other problems related to lifestyle; Z98.51 Tubal ligation status; Z79.899 Other long term (current) drug therapy; Z88.1 Allergy status to other antibiotic agents; Z90.710 Acquired absence of both cervix and uterus
CPT/HCPCS: 99282

== ENCOUNTER 2024-04-29 12:32 | Emergency (ER) | payer MEDICAID ==
[~2024-04-29] VITALS: Ht 165.1 cm; Wt 57.6 kg
[2024-04-29 12:37] VITALS: BP 135/48; PULSE 83; RESP 18; TEMP 96.8; O2SAT 98
== END 2024-04-29 14:37 | disposition left against medical advice (07) ==
LOC: ER 12:33
DX: G43.909 Migraine, unspecified, not intractable, without status migrainosus (principal); H53.149 Visual discomfort, unspecified; Z53.21 Procedure and treatment not carried out due to patient leaving prior to being seen by health care provider; Z88.1 Allergy status to other antibiotic agents; Z88.8 Allergy status to other drugs, medicaments and biological substances

== ENCOUNTER 2024-05-16 09:54 | Emergency (ER) | payer MEDICAID ==
[~2024-05-16] VITALS: Ht 165.1 cm; Wt 54.5 kg
[2024-05-16] MEDS ORDERED: PALI234D IM (11:03)
[2024-05-16] MEDS ORDERED: AMIT50TA15 PO (11:03)
[2024-05-16 11:23] VITALS: BP 129/74; PULSE 73; RESP 16; TEMP 98; O2SAT 98
== END 2024-05-16 11:24 | disposition home or self-care (01) ==
LOC: ER 09:55
DX: F20.9 Schizophrenia, unspecified (principal); K21.9 Gastro-esophageal reflux disease without esophagitis; F32.A Depression, unspecified; F41.9 Anxiety disorder, unspecified; F12.90 Cannabis use, unspecified, uncomplicated; F15.90 Other stimulant use, unspecified, uncomplicated; Z88.1 Allergy status to other antibiotic agents; Z88.8 Allergy status to other drugs, medicaments and biological substances; Z90.710 Acquired absence of both cervix and uterus; Z98.51 Tubal ligation status; Z90.89 Acquired absence of other organs; Z76.0 Encounter for issue of repeat prescription
CPT/HCPCS: 99281

== ENCOUNTER 2024-05-22 18:48 | Emergency (ER) | payer MEDICAID ==
[~2024-05-22] VITALS: Ht 165.1 cm; Wt 54.5 kg
[~2024-05-22 18:48] MED LIST changes: +AMIT50TA15 PO; +PALI234D IM
[2024-05-22 18:53] VITALS: BP 133/90; PULSE 83; RESP 17; TEMP 98.9; O2SAT 98
== END 2024-05-22 21:24 | disposition left against medical advice (07) ==
LOC: ER 18:49
DX: L98.9 Disorder of the skin and subcutaneous tissue, unspecified (principal); K21.9 Gastro-esophageal reflux disease without esophagitis; F41.9 Anxiety disorder, unspecified; F32.A Depression, unspecified; F20.9 Schizophrenia, unspecified; F12.90 Cannabis use, unspecified, uncomplicated; F15.90 Other stimulant use, unspecified, uncomplicated; F17.210 Nicotine dependence, cigarettes, uncomplicated; Z98.51 Tubal ligation status; Z88.1 Allergy status to other antibiotic agents; Z90.710 Acquired absence of both cervix and uterus; Z90.89 Acquired absence of other organs; Z88.8 Allergy status to other drugs, medicaments and biological substances
CPT/HCPCS: 99281

== ENCOUNTER 2024-06-18 16:04 | Emergency (ER) | payer MEDICAID ==
[~2024-06-18] VITALS: Ht 165.1 cm; Wt 54.5 kg
[~2024-06-18 16:04] MED LIST changes: -AMIT50TA15 PO; -PERM60CR19 TP; +PERM60CR27 TP
[2024-06-18 18:50] VITALS: BP 124/70; PULSE 79; RESP 18; O2SAT 99
[2024-06-18] MEDS ORDERED: PERM60CR4 TOP (19:21)
[2024-06-18] MEDS ORDERED: DIPH25CA83 PO (19:24)
[2024-06-18 19:26] VITALS: TEMP 98.1
== END 2024-06-18 19:32 | disposition home or self-care (01) ==
LOC: ER 16:06
DX: B86 Scabies (principal); F20.9 Schizophrenia, unspecified; K21.9 Gastro-esophageal reflux disease without esophagitis; F41.9 Anxiety disorder, unspecified; F32.A Depression, unspecified; F12.90 Cannabis use, unspecified, uncomplicated; F17.210 Nicotine dependence, cigarettes, uncomplicated; Z88.1 Allergy status to other antibiotic agents; Z88.8 Allergy status to other drugs, medicaments and biological substances; Z90.710 Acquired absence of both cervix and uterus; Z98.51 Tubal ligation status
CPT/HCPCS: 99282

== ENCOUNTER 2024-12-06 22:14 | Emergency (ER) | payer MEDICAID ==
[~2024-12-06 22:14] MED LIST changes: +AMIT25TA22 PO; -AMIT25TA9 PO; +CLIN-224 PO; -CLIN-97 PO; +DIPH25CA83 PO; +PERM60CR4 TOP
== END 2024-12-06 23:21 | disposition left against medical advice (07) ==
LOC: ER 22:15
DX: Z76.0 Encounter for issue of repeat prescription (principal); Z88.1 Allergy status to other antibiotic agents; Z88.5 Allergy status to narcotic agent; Z53.21 Procedure and treatment not carried out due to patient leaving prior to being seen by health care provider

== ENCOUNTER 2024-12-24 05:32 | Emergency (ER) | payer MEDICAID ==
[~2024-12-24] VITALS: Ht 165.1 cm; Wt 45.9 kg
[2024-12-24 05:53] VITALS: TEMP 97.1
--- NOTE | 2024-12-24 06:43 | Physician Documentation ---
History of Present Illness General Chief Complaint: Anxiety Stated Complaint: MED REQUEST Time Seen by MD: 06:37 Primary Medical Doctor: KITTY BOWEN History of Present Illness Initial Comments The patient is a 64-year-old female with a history of mental illness who requests a single Valium tablet here for anxiety. She denies any suicidal/homicidal ideations. Medication Reconciliation Allergies: Coded Allergies: meclizine (Verified Allergy, Severe, FACIAL EDEMA, 05/22/24) ciprofloxacin (Verified Allergy, Unknown, 05/22/24) tramadol HCl (Verified Allergy, Unknown, 05/22/24) Scheduled Albuterol Sulfate (Proventil Hfa), 2 PUFFS INH Q6H Albuterol Sulfate (Proventil Hfa), 2 PUFFS INH Q6H Amitriptyline Hcl (Amitriptyline Hcl), 50 MG PO HS, (Reported) Cephalexin (Keflex), 1 CAP PO Q8H, (Reported) Chlorpromazine HCl (Chlorpromazine HCl), 3 TAB PO HS, (Reported) Clindamycin HCL* (Clindamycin HCL*), 1 CAP PO Q6H Clindamycin HCl (Clindamycin HCl CAPSULE), 3 CAP PO TID Diphenhydramine Hcl (Benadryl), 25 MG PO BID PRN ITCHING, (Reported) Diphenhydramine Hcl (Benadryl), 1 CAP PO Q8H Doxycycline Hyclate (Doxycycline Hyclate), 1 CAP PO Q12H Fluticasone/Vilanterol (Breo Ellipta 200-25 Mcg INH), 1 PUFF INH DAILY Hydroxyzine Hcl (Atarax), 25 MG PO Q8H Ivermectin (Ivermectin), 3 TAB PO ONCE Lactobac Cmb #3/Fos/Pantethine (Probiotic & Acidophilus Cap), 1 CAP PO DAILY Loperamide HCl (Imodium A-D), 1 CAP PO Q8H Loperamide Hcl (Loperamide), 1 TAB PO PRN Meclizine HCl (Meclizine HCl), 1 TAB PO Q8H Meclizine HCl (Meclizine HCl), 1 TAB PO Q8H Meclizine HCl (Meclizine HCl), 1 TAB PO BID Meclizine HCl (Meclizine HCl), 1 TAB PO TID PRN Miconazole Nitrate (Monistat 7), 1 APPLICATOR VG HS Mupirocin Calcium (Mupirocin), 1 GM TOP BID Naproxen (Naproxen), 1 TAB PO Q12H, (Reported) Nitrofurantoin Macrocrystal (Nitrofurantoin), 100 MG PO BID ONDANSETRON ODT 4mg tablet (Ondansetron Odt), 1 TABLET PO Q6H Omeprazole (Omeprazole), 1 TAB PO DAILY, (Reported) Ondansetron Hcl (Zofran), 1 TAB PO Q8H Paliperidone Palmitate (Invega Sustenna), 1 SYR IM Q30D Pantoprazole Sodium (PROTONIX tablet), 1 TAB PO DAILY Permethrin (Lice Treatment), 1 APPLIC TOP ONCE Permethrin (Permethrin), 2 APPLIC TOP ONCE Permethrin 5% Cream* (Elimite 5% Cream*), 1 APPLIC TP ONCE, (Reported) Phenazopyridine HCl (Pyridium), 1 TAB PO Q8H Pip Butox/Pyrethrins/Permeth (Rid Complete Lice Kit), 1 EACH TP ONCE Pip Butox/Pyrethrins/Permeth (Rid Complete 1-2-3 Lice Kit), 1 EACH TP DAILY Piperonyl Butoxide/Pyrethrins (Rid Lice Killing Shampoo), 1 BOTTLE TOP BID Ranitidine HCl (Zantac), 1 TAB PO Q12H Scheduled PRN Albuterol Sulfate (Proair Hfa), 2 PUFFS IH Q4H PRN for SOB or wheezing Camphor (Benadryl Anti-Itch), 85 GM TP Q6H PRN for itching Cyclobenzaprine* (Cyclobenzaprine*), 1 TABLET PO Q8H PRN for muscle spasms Hydrocodone/Acetaminophen ([place] 5-325 Tablet), 1 TAB PO TID PRN PRN for pain ONDANSETRON ODT 4mg tablet (Ondansetron Odt), 1 TABLET PO Q6H PRN for nausea/vomiting ONDANSETRON ODT 4mg tablet (Ondansetron Odt), 1 TABLET PO Q6H PRN for nausea/vomiting Ondansetron (Zofran Odt), 8 MG PO QID PRN for nausea/vomiting Ondansetron (Zofran Odt), 4 MG PO Q6H PRN for nausea/vomiting Ondansetron 8mg ODT (Ondansetron Odt), 1 TAB PO TID PRN for nausea Oxycodone HCl/Acetaminophen (Percocet 5-325 mg Tablet), 1 TAB PO Q12H PRN PRN for pain Prochlorperazine Maleate (Compazine), 1 TAB PO TID PRN for dizziness/vertigo Miscellaneous Medications [albut] Past Medical History Past Medical History: Vertigo, *PULMONARY*, Pneumonia, Cholelithiasis, GERD, Hepatitis C, *RENAL/*, UTI, Chronic Pain, Chronic Back Pain, MRSA Abscess, Anxiety, Depression, Schizophrenia Past Surgical History: hysterectomy, tonsillectomy, tubal ligation Smoking: Cigarettes, Greater than 1 pack/day Alcohol Use: None Drug Use: marijuana, methamphetamine Lives with: Alone Lives In: Homeless Occupation: unemployed, disabled Review of Systems ROS Constitutional: Denies chills, fatigue, fever, weight gain or weight loss. HEENT: Denies hearing loss, sinus pressure or visual changes. Respiratory: Denies cough, shortness of breath or wheezing. Cardiovascular: Denies chest pain, pain while walking (claudication), edema or palpitations. Gastrointestinal: Denies abdominal pain, blood in stool, constipation, diarrhea, heartburn, loss of appetite, nausea or vomiting. Genitourinary: Denies painful urination (dysuria), excessive amount of urine (polyuria) or urinary frequency. Metabolic/Endocrine: Denies cold intolerance, heat intolerance, excessive thirst (polydipsia) or excessive hunger (polyphagia). Neurological: Denies dizziness, extremity numbness, extremity weakness, headaches, seizures or tremors. Psychiatric: Anxiety Integumentary: Denies breast discharge, breast lump, hives, mole change(s), rash or skin lesion. Musculoskeletal: Denies back pain, joint pain, joint swelling or neck pain. Hematologic: Denies easily bleeding, easily bruises, lymphedema or issues with blood clots. Immunologic: Denies food allergies or seasonal allergies. Physical Exam Physical Exam Vital Signs: Temperature: 97.1, Source: Oral, Heart Rate: 81, Respiratory Rate: 22, Pulse Oximetry: 95, Weight: 45.900 Physical Exam Physical Exam Vitals and nursing note reviewed. Constitutional: General: Patient is awake, alert, oriented x 4 in no acute distress and well appearing. Speech is clear and lucid. Appearance: Normal appearance. Patient is not ill-appearing, toxic-appearing or diaphoretic. HENT: Head: Normocephalic and atraumatic. Mouth/Throat: Mouth: Mucous membranes are moist. Pharynx: Oropharynx is clear. Eyes: General: No scleral icterus. Extraocular Movements: Extraocular movements intact. Pupils: Pupils are equal, round, and reactive to light. Neck: Supple, no Kernig or Brudzinski sign. Cardiovascular: Rate and Rhythm: Normal rate and regular rhythm. Heart sounds: No murmur heard. Pulmonary: Effort: No respiratory distress. Breath sounds: No wheezing, rhonchi or rales. Abdominal: General: There is no distension. Palpations: There is no fluid wave, hepatomegaly or mass. Tenderness: There is no abdominal tenderness. There is no guarding. Musculoskeletal: General: No swelling or deformity. Skin: Coloration: Skin is not jaundiced. Findings: No erythema or rash. Neurological: Mental Status: Patient is alert. Progress Results/Orders Results/Orders Vital Signs 12/24/24 05:53 Temp 97.1 Pulse 81 Resp 22 Pulse Ox 95 Medical Decision Making Findings Patient suffers from anxiety in his requesting a single Valium tablet. I am going to give her Valium 5 mg orally. Departure Disposition: HOME / SELF CARE / HOMELESS Impression: Primary Impression: Anxiety Condition: Stable Additional Instructions: It is important to see your doctor or primary care provider. Emergency care may be incomplete without proper follow-up. Symptoms sometimes change or new symptoms might arise after you leave the emergency department. It is important that you call your doctor if you become worse in any way, or return to the emergency department. You are strongly urged to follow-up with your physician to assure complete and thorough care. Please call your doctor's office today, and informed them that you were seen in the emergency department, and that you need to be seen immediately for close follow-up. If you do not have a primary care doctor we encourage you to proactively seek a local physician for close follow-up. Consider local clinics, [facility], or local [facility]. Prior to discharge we spoke at length concerning symptoms that would merit reevaluation, but please return to the emergency department for any symptoms that are concerning to you, and we will be happy to continue your evaluation and treatment. Please note you can always return to the emergency department if you are having difficulty coordinating close follow-up. If medications were prescribed, you should fill them at your local pharmacy immediately and take only as prescribed. Bring your new medications to your doctors follow-up visit to discuss any changes that would be necessary. Please check [employer] for any results you did not receive in the Emergency Department: often we are unable to get all your tests back before you leave, and these tests need to be reviewed by your PCP and yourself. You can also call Medical Records if you are unable to access the internet to see [employer]. Return to the emergency department immediately for worsening chest pain, difficulty breathing, sweating, or other concerning emergent symptoms. Referrals: NO PRIMARY CARE PROVIDER (PCP) Education Educated: Patient Educated regarding: diagnosis, treatment, need for follow up Signature Scribe Signature: . Attestation: . ARTHUR BECKFORD MD Dec 24, 2024 06:43
[2024-12-24 06:46] VITALS: BP 146/51; PULSE 79; O2SAT 98
[2024-12-24 06:49] VITALS: RESP 15
== END 2024-12-24 07:05 | disposition home or self-care (01) ==
LOC: ER 05:32
DX: F41.9 Anxiety disorder, unspecified (principal); F20.9 Schizophrenia, unspecified; F12.90 Cannabis use, unspecified, uncomplicated; F17.210 Nicotine dependence, cigarettes, uncomplicated; K21.9 Gastro-esophageal reflux disease without esophagitis; F32.A Depression, unspecified; Z59.00 Homelessness unspecified; Z90.710 Acquired absence of both cervix and uterus; Z88.8 Allergy status to other drugs, medicaments and biological substances; Z88.5 Allergy status to narcotic agent; Z79.899 Other long term (current) drug therapy; Z56.0 Unemployment, unspecified
CPT/HCPCS: 99283

== ENCOUNTER 2025-01-06 02:50 | Emergency (ER) | payer MEDICAID ==
[~2025-01-06] VITALS: Ht 165.1 cm; Wt 36.7 kg
[2025-01-06 02:55] VITALS: BP 102/58; PULSE 75; TEMP 97.3; O2SAT 98
--- NOTE | 2025-01-06 03:15 | Physician Documentation ---
History of Present Illness ~ Chief Complaint: Mental Health Eval Stated Complaint: MENTAL HEALTH EVAL Time Seen by MD: 03:07 OK to notify your PCP?: Yes Primary Medical Doctor: KITTY BOWEN Source: patient, RN/MD, RN notes reviewed, old records Mode of Arrival: POV Exam Limitations: no limitations HPI Patient's triage note states that she is having bad mental health and denies suicidal ideation. Patient tells me she wants a medication refill which includes Valium. Patient has a history of methamphetamine abuse on psychiatric medications. I asked what medications does she need refill that is psychiatric medications he said only Valium. Her doctor gives it to her all the time. When asked who is your primary care doctor she says none of your foot can business. Medication Reconciliation Allergies: Coded Allergies: meclizine (Verified Allergy, Severe, FACIAL EDEMA, 05/22/24) ciprofloxacin (Verified Allergy, Unknown, 05/22/24) tramadol HCl (Verified Allergy, Unknown, 05/22/24) Scheduled Albuterol Sulfate (Proventil Hfa), 2 PUFFS INH Q6H Albuterol Sulfate (Proventil Hfa), 2 PUFFS INH Q6H Amitriptyline Hcl (Amitriptyline Hcl), 50 MG PO HS, (Reported) Cephalexin (Keflex), 1 CAP PO Q8H, (Reported) Chlorpromazine HCl (Chlorpromazine HCl), 3 TAB PO HS, (Reported) Clindamycin HCL* (Clindamycin HCL*), 1 CAP PO Q6H Clindamycin HCl (Clindamycin HCl CAPSULE), 3 CAP PO TID Diphenhydramine Hcl (Benadryl), 25 MG PO BID PRN ITCHING, (Reported) Diphenhydramine Hcl (Benadryl), 1 CAP PO Q8H Doxycycline Hyclate (Doxycycline Hyclate), 1 CAP PO Q12H Fluticasone/Vilanterol (Breo Ellipta 200-25 Mcg INH), 1 PUFF INH DAILY Hydroxyzine Hcl (Atarax), 25 MG PO Q8H Ivermectin (Ivermectin), 3 TAB PO ONCE Lactobac Cmb #3/Fos/Pantethine (Probiotic & Acidophilus Cap), 1 CAP PO DAILY Loperamide HCl (Imodium A-D), 1 CAP PO Q8H Loperamide Hcl (Loperamide), 1 TAB PO PRN Meclizine HCl (Meclizine HCl), 1 TAB PO Q8H Meclizine HCl (Meclizine HCl), 1 TAB PO Q8H Meclizine HCl (Meclizine HCl), 1 TAB PO BID Meclizine HCl (Meclizine HCl), 1 TAB PO TID PRN Miconazole Nitrate (Monistat 7), 1 APPLICATOR VG HS Mupirocin Calcium (Mupirocin), 1 GM TOP BID Naproxen (Naproxen), 1 TAB PO Q12H, (Reported) Nitrofurantoin Macrocrystal (Nitrofurantoin), 100 MG PO BID ONDANSETRON ODT 4mg tablet (Ondansetron Odt), 1 TABLET PO Q6H Omeprazole (Omeprazole), 1 TAB PO DAILY, (Reported) Ondansetron Hcl (Zofran), 1 TAB PO Q8H Paliperidone Palmitate (Invega Sustenna), 1 SYR IM Q30D Pantoprazole Sodium (PROTONIX tablet), 1 TAB PO DAILY Permethrin (Lice Treatment), 1 APPLIC TOP ONCE Permethrin (Permethrin), 2 APPLIC TOP ONCE Permethrin 5% Cream* (Elimite 5% Cream*), 1 APPLIC TP ONCE, (Reported) Phenazopyridine HCl (Pyridium), 1 TAB PO Q8H Pip Butox/Pyrethrins/Permeth (Rid Complete Lice Kit), 1 EACH TP ONCE Pip Butox/Pyrethrins/Permeth (Rid Complete 1-2-3 Lice Kit), 1 EACH TP DAILY Piperonyl Butoxide/Pyrethrins (Rid Lice Killing Shampoo), 1 BOTTLE TOP BID Ranitidine HCl (Zantac), 1 TAB PO Q12H Scheduled PRN Albuterol Sulfate (Proair Hfa), 2 PUFFS IH Q4H PRN for SOB or wheezing Camphor (Benadryl Anti-Itch), 85 GM TP Q6H PRN for itching Cyclobenzaprine* (Cyclobenzaprine*), 1 TABLET PO Q8H PRN for muscle spasms Hydrocodone/Acetaminophen ([place] 5-325 Tablet), 1 TAB PO TID PRN PRN for pain ONDANSETRON ODT 4mg tablet (Ondansetron Odt), 1 TABLET PO Q6H PRN for nause a/vomiting ONDANSETRON ODT 4mg tablet (Ondansetron Odt), 1 TABLET PO Q6H PRN for nausea/vomiting Ondansetron (Zofran Odt), 8 MG PO QID PRN for nausea/vomiting Ondansetron (Zofran Odt), 4 MG PO Q6H PRN for nausea/vomiting Ondansetron 8mg ODT (Ondansetron Odt), 1 TAB PO TID PRN for nausea Oxycodone HCl/Acetaminophen (Percocet 5-325 mg Tablet), 1 TAB PO Q12H PRN PRN for pain Prochlorperazine Maleate (Compazine), 1 TAB PO TID PRN for dizziness/vertigo Miscellaneous Medications [albut] Past Medical History Past Medical History: Vertigo, *PULMONARY*, Pneumonia, Cholelithiasis, GERD, Hepatitis C, *RENAL/*, UTI, Chronic Pain, Chronic Back Pain, MRSA Abscess, Anxiety, Depression, Schizophrenia Past Surgical History: hysterectomy, tonsillectomy, tubal ligation Alcohol Use: None Drug Use: marijuana, methamphetamine Lives with: Alone Lives In: Homeless Occupation: unemployed, disabled Review of Systems All Other Systems at this time: Reviewed and Negative Physical Exam Vital Signs: RN Vital Signs have been reviewed: Yes, Temperature: 97.3, Source: Oral, Heart Rate: 75, Respiratory Rate: 16, BP: 102/58, Pulse Oximetry: 98, Mateus ght: 36.700 Oxygen Flow Rate: 0 Physical Exam General: The patient is well developed, well nourished, nontoxic appearing and is in no acute distress. Looks older than stated age Skin: [place], warm and dry with no rashes. HEENT: Head was normocephalic and atraumatic. Eyes - pupils equal, round, reactive to light and accommodation. Extraocular movements were intact. Conjunctivae were nonicteric. The mouth and oropharynx were clear with moist mucous membranes. Neck: Supple and nontender. There was no jugular venous distention Chest: Clear to auscultation bilaterally without wheezes, rales or rhonchi. Heart: Rate regular and rhythmic. S1, S2. No murmurs. Abdomen: Soft, nontender and nondistended. Positive bowel sounds. No guarding or rebound. Extremities: No cyanosis, clubbing or edema. The patient moves all extremities. Neurologic: Motor sensory grossly intact Psychologic: The patient was oriented to person, place and time. The patient demonstrated poor judgement and insight. Progress Results/Orders Reviewed/noted all lab results: Yes Results/Orders Vital Signs 01/06/25 02:55 Temp 97.3 Pulse 75 Resp 16 B/P (MAP) 102/58 Pulse Ox 98 O2 Flow Rate 0 Re-Evaluation Re-Evaluation : Re-Evaluation: Unchanged Progress Patient is cussing at people foul language. She is requesting benzodiazepines no other medications. Patient was told she needs to follow up with her primary care physician for a medication that is addictive plus she has a history of methamphetamine abuse and polysubstance abuse would probably not be a good idea for the patient. She then said well I do not need to be here and left without receiving her discharge instructions. She was encouraged to follow up with mental health as needed. Medical Decision Making Additional info obtained from: old records Differential Dx:Considerations: Include: Alcohol abuse, Anxiety, Bipolar disorder, Conversion disorder, Depression, Encephaloathy, Homicidal, Panic disorder, Personality disorder, Schizophrenia, Substance abuse, Suicidal, Other Departure Disposition: 01 HOME / SELF CARE / HOMELESS Impression: Primary Impression: General medical exam Discharge Instructions: Medical Screening Exam Referrals: NO PRIMARY CARE PROVIDER (PCP) Education Educated: Patient Educated regarding: diagnosis Signature Scribe Signature: v Attestation: The note accurately reflects work and decisions made by me.Jonathan Chapman MD 01/06/25 03:17 JONATHAN CHAPMAN MD Jan 06, 2025 03:15
[2025-01-06 03:52] VITALS: RESP 16
== END 2025-01-06 03:56 | disposition home or self-care (01) ==
LOC: ER 02:51
DX: Z00.00 Encounter for general adult medical examination without abnormal findings (principal); F41.9 Anxiety disorder, unspecified; F20.9 Schizophrenia, unspecified; G89.29 Other chronic pain; K21.9 Gastro-esophageal reflux disease without esophagitis; F32.A Depression, unspecified; F12.90 Cannabis use, unspecified, uncomplicated; F15.90 Other stimulant use, unspecified, uncomplicated; Z86.14 Personal history of Methicillin resistant Staphylococcus aureus infection; Z86.19 Personal history of other infectious and parasitic diseases; Z88.1 Allergy status to other antibiotic agents; Z88.5 Allergy status to narcotic agent; Z90.710 Acquired absence of both cervix and uterus; Z79.899 Other long term (current) drug therapy; Z56.0 Unemployment, unspecified; Z59.00 Homelessness unspecified; Z60.2 Problems related to living alone
CPT/HCPCS: 99281; 99282

== ENCOUNTER 2025-01-12 02:30 | Emergency (ER) | payer MEDICAID ==
[~2025-01-12] VITALS: Ht 162.6 cm; Wt 37.0 kg
[2025-01-12 02:34] VITALS: TEMP 97.7
--- NOTE | 2025-01-12 02:58 | Physician Documentation ---
HPI ~ General Chief Complaint: Medication Request Stated Complaint: MH ISSUES Time Seen by MD: 02:55 Primary Medical Doctor: KITTY BOWEN History of Present Illness HPI Comments Requesting valium for "mental health." Denies medical complaints and mental health complaints otherwise. Medication Reconciliation Allergies: Coded Allergies: meclizine (Verified Allergy, Severe, FACIAL EDEMA, 05/22/24) ciprofloxacin (Verified Allergy, Unknown, 05/22/24) tramadol HCl (Verified Allergy, Unknown, 05/22/24) Scheduled Albuterol Sulfate (Proventil Hfa), 2 PUFFS INH Q6H Albuterol Sulfate (Proventil Hfa), 2 PUFFS INH Q6H Amitriptyline Hcl (Amitriptyline Hcl), 50 MG PO HS, (Reported) Cephalexin (Keflex), 1 CAP PO Q8H, (Reported) Chlorpromazine HCl (Chlorpromazine HCl), 3 TAB PO HS, (Reported) Clindamycin HCL* (Clindamycin HCL*), 1 CAP PO Q6H Clindamycin HCl (Clindamycin HCl CAPSULE), 3 CAP PO TID Diphenhydramine Hcl (Benadryl), 25 MG PO BID PRN ITCHING, (Reported) Diphenhydramine Hcl (Benadryl), 1 CAP PO Q8H Doxycycline Hyclate (Doxycycline Hyclate), 1 CAP PO Q12H Fluticasone/Vilanterol (Breo Ellipta 200-25 Mcg INH), 1 PUFF INH DAILY Hydroxyzine Hcl (Atarax), 25 MG PO Q8H Ivermectin (Ivermectin), 3 TAB PO ONCE Lactobac Cmb #3/Fos/Pantethine (Probiotic & Acidophilus Cap), 1 CAP PO DAILY Loperamide HCl (Imodium A-D), 1 CAP PO Q8H Loperamide Hcl (Loperamide), 1 TAB PO PRN Meclizine HCl (Meclizine HCl), 1 TAB PO Q8H Meclizine HCl (Meclizine HCl), 1 TAB PO Q8H Meclizine HCl (Meclizine HCl), 1 TAB PO BID Meclizine HCl (Meclizine HCl), 1 TAB PO TID PRN Miconazole Nitrate (Monistat 7), 1 APPLICATOR VG HS Mupirocin Calcium (Mupirocin), 1 GM TOP BID Naproxen (Naproxen), 1 TAB PO Q12H, (Reported) Nitrofurantoin Macrocrystal (Nitrofurantoin), 100 MG PO BID ONDANSETRON ODT 4mg tablet (Ondansetron Odt), 1 TABLET PO Q6H Omeprazole (Omeprazole), 1 TAB PO DAILY, (Reported) Ondansetron Hcl (Zofran), 1 TAB PO Q8H Paliperidone Palmitate (Invega Sustenna), 1 SYR IM Q30D Pantoprazole Sodium (PROTONIX tablet), 1 TAB PO DAILY Permethrin (Lice Treatment), 1 APPLIC TOP ONCE Permethrin (Permethrin), 2 APPLIC TOP ONCE Permethrin 5% Cream* (Elimite 5% Cream*), 1 APPLIC TP ONCE, (Reported) Phenazopyridine HCl (Pyridium), 1 TAB PO Q8H Pip Butox/Pyrethrins/Permeth (Rid Complete Lice Kit), 1 EACH TP ONCE Pip Butox/Pyrethrins/Permeth (Rid Complete 1-2-3 Lice Kit), 1 EACH TP DAILY Piperonyl Butoxide/Pyrethrins (Rid Lice Killing Shampoo), 1 BOTTLE TOP BID Ranitidine HCl (Zantac), 1 TAB PO Q12H Scheduled PRN Albuterol Sulfate (Proair Hfa), 2 PUFFS IH Q4H PRN for SOB or wheezing Camphor (Benadryl Anti-Itch), 85 GM TP Q6H PRN for itching Cyclobenzaprine* (Cyclobenzaprine*), 1 TABLET PO Q8H PRN for muscle spasms Hydrocodone/Acetaminophen ([place] 5-325 Tablet), 1 TAB PO TID PRN PRN for pain ONDANSETRON ODT 4mg tablet (Ondansetron Odt), 1 TABLET PO Q6H PRN for nausea/vomiting ONDANSETRON ODT 4mg tablet (Ondansetron Odt), 1 TABLET PO Q6H PRN for nausea/vomiting Ondansetron (Zofran Odt), 8 MG PO QID PRN for nausea/vomiting Ondansetron (Zofran Odt), 4 MG PO Q6H PRN for nausea/vomiting Ondansetron 8mg ODT (Ondansetron Odt), 1 TAB PO TID PRN for nausea Oxycodone HCl/Acetaminophen (Percocet 5-325 mg Tablet), 1 TAB PO Q12H PRN PRN for pain Prochlorperazine Maleate (Compazine), 1 TAB PO TID PRN for dizziness/vertigo Miscellaneous Medications [albut] Past Medical History Past Medical History: Vertigo, *PULMONARY*, Pneumonia, Cholelithiasis, GERD, Hepatitis C, *RENAL/*, UTI, Chronic Pain, Chronic Back Pain, MRSA Abscess, Anxiety, Depression, Schizophrenia Past Surgical History: hysterectomy, tonsillectomy, tubal ligation Alcohol Use: None Drug Use: marijuana, methamphetamine Lives with: Alone Lives In: Homeless Occupation: unemployed, disabled Review of Systems All Other Systems at this time: Reviewed and Negative Physical Exam Physical Exam Vital Signs: RN Vital Signs have been reviewed: Yes, Temperature: 97.7, Heart Rate: 76, Respiratory Rate: 16, BP: 93/66, Pulse Oximetry: 97, Weight: 37.000 Oxygen Flow Rate: 0 Physical Exam gen: foul-smelling, disheveled HEENT: PERRL, moist oral mucosa, EOMI Pulmonary: No respiratory distress MSK: no deformity Skin: w/d/i, no rash Neuro: alert, nonfocal Psych: normal affect Progress Results/Orders Results/Orders Vital Signs 01/12/25 02:34 Temp 97.7 Pulse 76 Resp 16 B/P (MAP) 93/66 Pulse Ox 97 O2 Flow Rate 0 Medical Decision Making Findings 64 year old female requesting valium. Provided small dose here. Return precautions. Differential Dx:Considerations: Include: Adverse circumstances, Economic, Psychosocial, Medical services unavail., Medication refill, Medication non- compliance Departure Disposition: HOME / SELF CARE / HOMELESS Impression: Primary Impression: Medication refill Condition: Stable Discharge Instructions: Medical Screening Exam Referrals: NO PRIMARY CARE PROVIDER (PCP) Education Educated: Patient Educated regarding: diagnosis, treatment, prognosis, need for follow up Signature Scribe Signature: . Attestation: . SAMMY WONG MD Jan 12, 2025 02:58
[2025-01-12 03:17] VITALS: BP 135/72; PULSE 70; O2SAT 99
[2025-01-12 03:18] VITALS: RESP 16
== END 2025-01-12 03:21 | disposition home or self-care (01) ==
LOC: ER 02:30
DX: F41.9 Anxiety disorder, unspecified (principal); F20.9 Schizophrenia, unspecified; F32.A Depression, unspecified; K21.9 Gastro-esophageal reflux disease without esophagitis; F12.90 Cannabis use, unspecified, uncomplicated; F15.90 Other stimulant use, unspecified, uncomplicated; G89.29 Other chronic pain; Z88.1 Allergy status to other antibiotic agents; Z88.5 Allergy status to narcotic agent; Z90.710 Acquired absence of both cervix and uterus; Z76.0 Encounter for issue of repeat prescription; Z79.899 Other long term (current) drug therapy; Z56.0 Unemployment, unspecified; Z59.00 Homelessness unspecified; Z60.2 Problems related to living alone
CPT/HCPCS: 99283

== ENCOUNTER 2025-01-14 02:57 | Emergency (ER) | payer MEDICAID ==
[~2025-01-14] VITALS: Ht 165.1 cm; Wt 37.0 kg
[2025-01-14 03:05] VITALS: PULSE 75; RESP 16; TEMP 97.7; O2SAT 97
--- NOTE | 2025-01-14 03:12 | Physician Documentation ---
History of Present Illness ~ General Stated Complaint: EVALUATION Time Seen by MD: 03:08 Primary Medical Doctor: KITTY BOWEN History of Present Illness Initial Comments Patient presents to the emergency room requesting a Valium pill. She has been here several times the last several days requesting this. She has been instructed that she needs to get it from her doctor. Medication Reconciliation Allergies: Coded Allergies: meclizine (Verified Allergy, Severe, FACIAL EDEMA, 05/22/24) ciprofloxacin (Verified Allergy, Unknown, 05/22/24) tramadol HCl (Verified Allergy, Unknown, 05/22/24) Scheduled Albuterol Sulfate (Proventil Hfa), 2 PUFFS INH Q6H Albuterol Sulfate (Proventil Hfa), 2 PUFFS INH Q6H Amitriptyline Hcl (Amitriptyline Hcl), 50 MG PO HS, (Reported) Cephalexin (Keflex), 1 CAP PO Q8H, (Reported) Chlorpromazine HCl (Chlorpromazine HCl), 3 TAB PO HS, (Reported) Clindamycin HCL* (Clindamycin HCL*), 1 CAP PO Q6H Clindamycin HCl (Clindamycin HCl CAPSULE), 3 CAP PO TID Diphenhydramine Hcl (Benadryl), 25 MG PO BID PRN ITCHING, (Reported) Diphenhydramine Hcl (Benadryl), 1 CAP PO Q8H Doxycycline Hyclate (Doxycycline Hyclate), 1 CAP PO Q12H Fluticasone/Vilanterol (Breo Ellipta 200-25 Mcg INH), 1 PUFF INH DAILY Hydroxyzine Hcl (Atarax), 25 MG PO Q8H Ivermectin (Ivermectin), 3 TAB PO ONCE Lactobac Cmb #3/Fos/Pantethine (Probiotic & Acidophilus Cap), 1 CAP PO DAILY Loperamide HCl (Imodium A-D), 1 CAP PO Q8H Loperamide Hcl (Loperamide), 1 TAB PO PRN Meclizine HCl (Meclizine HCl), 1 TAB PO Q8H Meclizine HCl (Meclizine HCl), 1 TAB PO Q8H Meclizine HCl (Meclizine HCl), 1 TAB PO BID Meclizine HCl (Meclizine HCl), 1 TAB PO TID PRN Miconazole Nitrate (Monistat 7), 1 APPLICATOR VG HS Mupirocin Calcium (Mupirocin), 1 GM TOP BID Naproxen (Naproxen), 1 TAB PO Q12H, (Reported) Nitrofurantoin Macrocrystal (Nitrofurantoin), 100 MG PO BID ONDANSETRON ODT 4mg tablet (Ondansetron Odt), 1 TABLET PO Q6H Omeprazole (Omeprazole), 1 TAB PO DAILY, (Reported) Ondansetron Hcl (Zofran), 1 TAB PO Q8H Paliperidone Palmitate (Invega Sustenna), 1 SYR IM Q30D Pantoprazole Sodium (PROTONIX tablet), 1 TAB PO DAILY Permethrin (Lice Treatment), 1 APPLIC TOP ONCE Permethrin (Permethrin), 2 APPLIC TOP ONCE Permethrin 5% Cream* (Elimite 5% Cream*), 1 APPLIC TP ONCE, (Reported) Phenazopyridine HCl (Pyridium), 1 TAB PO Q8H Pip Butox/Pyrethrins/Permeth (Rid Complete Lice Kit), 1 EACH TP ONCE Pip Butox/Pyrethrins/Permeth (Rid Complete 1-2-3 Lice Kit), 1 EACH TP DAILY Piperonyl Butoxide/Pyrethrins (Rid Lice Killing Shampoo), 1 BOTTLE TOP BID Ranitidine HCl (Zantac), 1 TAB PO Q12H Scheduled PRN Albuterol Sulfate (Proair Hfa), 2 PUFFS IH Q4H PRN for SOB or wheezing Camphor (Benadryl Anti-Itch), 85 GM TP Q6H PRN for itching Cyclobenzaprine* (Cyclobenzaprine*), 1 TABLET PO Q8H PRN for muscle spasms Hydrocodone/Acetaminophen ([place] 5-325 Tablet), 1 TAB PO TID PRN PRN for pain ONDANSETRON ODT 4mg tablet (Ondansetron Odt), 1 TABLET PO Q6H PRN for nausea/vomiting ONDANSETRON ODT 4mg tablet (Ondansetron Odt), 1 TABLET PO Q6H PRN for nausea/vomiting Ondansetron (Zofran Odt), 8 MG PO QID PRN for nausea/vomiting Ondansetron (Zofran Odt), 4 MG PO Q6H PRN for nausea/vomiting Ondansetron 8mg ODT (Ondansetron Odt), 1 TAB PO TID PRN for nausea Oxycodone HCl/Acetaminophen (Percocet 5-325 mg Tablet), 1 TAB PO Q12H PRN PRN for pain Prochlorperazine Maleate (Compazine), 1 TAB PO TID PRN for dizziness/vertigo Miscellaneous Medications [albut] Past Medical History Past Medical History: Vertigo, *PULMONARY*, Pneumonia, Cholelithiasis, GERD, Hepatitis C, *RENAL/*, UTI, Chronic Pain, Chronic Back Pain, MRSA Abscess, Anxiety, Depression, Schizophrenia Past Surgical History: hysterectomy, tonsillectomy, tubal ligation Alcohol Use: None Drug Use: marijuana, methamphetamine Lives with: Alone Lives In: Homeless Occupation: unemployed, disabled Review of Systems ROS All review of systems negative except as per HPI Physical Exam Physical Exam Physical Exam General: Patient is awake, alert, oriented x4 in no acute distress . Rocking back and forth Head: Normocephalic and atraumatic. Eyes: Conjunctival normal. EOMI. PERRL. ENT: Mucous membranes moist. Neck: Supple, trachea is midline. Chest: Clear to auscultation bilaterally without rales, rhonchi, or wheezes. There is no accessory muscle use or retractions. Cardiac: RRR without murmurs, gallops, or rubs. Abd: Soft, nondistended, nontender, with normoactive bowel sounds. No guarding, rebound, or rigidity. Psych: no SI, calm, good eye contact, Medical Decision Making Findings Patient presented to the emergency room requesting Valium. He had not suspect psychiatric break and patient appears calm. I have instructed her that she needs to get her medication from her doctor I do not believe she requires emergent labs or imaging. When patient was told her we would not be giving her any Valium she stated that it is fine I will just get it from somewhere else Departure Disposition: HOME / SELF CARE / HOMELESS Impression: Primary Impression: Patient requests medication, not given Condition: Stable Discharge Instructions: General Discharge Instructions Referrals: NO PRIMARY CARE PROVIDER (PCP) Signature Scribe Signature: No scribe Attestation: The note accurately reflects work and decisions made by me.Jarod Urbina MD 01/14/25 03:12 JAROD URBINA MD Jan 14, 2025 03:12
== END 2025-01-14 03:22 | disposition home or self-care (01) ==
LOC: ER 02:58
DX: Z00.8 Encounter for other general examination (principal); F20.9 Schizophrenia, unspecified; F41.9 Anxiety disorder, unspecified; F32.A Depression, unspecified; F12.90 Cannabis use, unspecified, uncomplicated; F15.90 Other stimulant use, unspecified, uncomplicated; Z86.14 Personal history of Methicillin resistant Staphylococcus aureus infection; Z88.1 Allergy status to other antibiotic agents; Z88.8 Allergy status to other drugs, medicaments and biological substances; Z90.710 Acquired absence of both cervix and uterus
CPT/HCPCS: 99281

== ENCOUNTER 2025-01-20 04:45 | Emergency (ER) | payer MEDICAID ==
[~2025-01-20] VITALS: Ht 165.1 cm; Wt 37.0 kg
--- NOTE | 2025-01-20 04:54 | Physician Documentation ---
HPI ~ General Chief Complaint: Medication Request Stated Complaint: SEE CHIEF COMPLAINT Time Seen by MD: 04:53 Primary Medical Doctor: KITTY BOWEN History of Present Illness HPI Comments Patient presents to the emergency room requesting Valium or any other psychiatric medication. She is unsure which psychiatric medication she is supposed to be taking. She states she does not have a therapist in his not reached out to [facility]. Medication Reconciliation Allergies: Coded Allergies: meclizine (Verified Allergy, Severe, FACIAL EDEMA, 05/22/24) ciprofloxacin (Verified Allergy, Unknown, 05/22/24) tramadol HCl (Verified Allergy, Unknown, 05/22/24) Scheduled Albuterol Sulfate (Proventil Hfa), 2 PUFFS INH Q6H Albuterol Sulfate (Proventil Hfa), 2 PUFFS INH Q6H Amitriptyline Hcl (Amitriptyline Hcl), 50 MG PO HS, (Reported) Cephalexin (Keflex), 1 CAP PO Q8H, (Reported) Chlorpromazine HCl (Chlorpromazine HCl), 3 TAB PO HS, (Reported) Clindamycin HCL* (Clindamycin HCL*), 1 CAP PO Q6H Clindamycin HCl (Clindamycin HCl CAPSULE), 3 CAP PO TID Diphenhydramine Hcl (Benadryl), 25 MG PO BID PRN ITCHING, (Reported) Diphenhydramine Hcl (Benadryl), 1 CAP PO Q8H Doxycycline Hyclate (Doxycycline Hyclate), 1 CAP PO Q12H Fluticasone/Vilanterol (Breo Ellipta 200-25 Mcg INH), 1 PUFF INH DAILY Hydroxyzine Hcl (Atarax), 25 MG PO Q8H Ivermectin (Ivermectin), 3 TAB PO ONCE Lactobac Cmb #3/Fos/Pantethine (Probiotic & Acidophilus Cap), 1 CAP PO DAILY Loperamide HCl (Imodium A-D), 1 CAP PO Q8H Loperamide Hcl (Loperamide), 1 TAB PO PRN Meclizine HCl (Meclizine HCl), 1 TAB PO Q8H Meclizine HCl (Meclizine HCl), 1 TAB PO Q8H Meclizine HCl (Meclizine HCl), 1 TAB PO BID Meclizine HCl (Meclizine HCl), 1 TAB PO TID PRN Miconazole Nitrate (Monistat 7), 1 APPLICATOR VG HS Mupirocin Calcium (Mupirocin), 1 GM TOP BID Naproxen (Naproxen), 1 TAB PO Q12H, (Reported) Nitrofurantoin Macrocrystal (Nitrofurantoin), 100 MG PO BID ONDANSETRON ODT 4mg tablet (Ondansetron Odt), 1 TABLET PO Q6H Omeprazole (Omeprazole), 1 TAB PO DAILY, (Reported) Ondansetron Hcl (Zofran), 1 TAB PO Q8H Paliperidone Palmitate (Invega Sustenna), 1 SYR IM Q30D Pantoprazole Sodium (PROTONIX tablet), 1 TAB PO DAILY Permethrin (Lice Treatment), 1 APPLIC TOP ONCE Permethrin (Permethrin), 2 APPLIC TOP ONCE Permethrin 5% Cream* (Elimite 5% Cream*), 1 APPLIC TP ONCE, (Reported) Phenazopyridine HCl (Pyridium), 1 TAB PO Q8H Pip Butox/Pyrethrins/Permeth (Rid Complete Lice Kit), 1 EACH TP ONCE Pip Butox/Pyrethrins/Permeth (Rid Complete 1-2-3 Lice Kit), 1 EACH TP DAILY Piperonyl Butoxide/Pyrethrins (Rid Lice Killing Shampoo), 1 BOTTLE TOP BID Ranitidine HCl (Zantac), 1 TAB PO Q12H Scheduled PRN Albuterol Sulfate (Proair Hfa), 2 PUFFS IH Q4H PRN for SOB or wheezing Camphor (Benadryl Anti-Itch), 85 GM TP Q6H PRN for itching Cyclobenzaprine* (Cyclobenzaprine*), 1 TABLET PO Q8H PRN for muscle spasms Hydrocodone/Acetaminophen ([place] 5-325 Tablet), 1 TAB PO TID PRN PRN for pain ONDANSETRON ODT 4mg tablet (Ondansetron Odt), 1 TABLET PO Q6H PRN for naus ea/vomiting ONDANSETRON ODT 4mg tablet (Ondansetron Odt), 1 TABLET PO Q6H PRN for nausea/vomiting Ondansetron (Zofran Odt), 8 MG PO QID PRN for nausea/vomiting Ondansetron (Zofran Odt), 4 MG PO Q6H PRN for nausea/vomiting Ondansetron 8mg ODT (Ondansetron Odt), 1 TAB PO TID PRN for nausea Oxycodone HCl/Acetaminophen (Percocet 5-325 mg Tablet), 1 TAB PO Q12H PRN PRN for pain Prochlorperazine Maleate (Compazine), 1 TAB PO TID PRN for dizziness/vertigo Miscellaneous Medications [albut] Past Medical History Past Medical History: Vertigo, *PULMONARY*, Pneumonia, Cholelithiasis, GERD, Hepatitis C, *RENAL/*, UTI, Chronic Pain, Chronic Back Pain, MRSA Abscess, Anxiety, Depression, Schizophrenia Past Surgical History: hysterectomy, tonsillectomy, tubal ligation Alcohol Use: None Drug Use: marijuana, methamphetamine Lives with: Alone Lives In: Homeless Occupation: unemployed, disabled Review of Systems ROS All review of systems negative except as per HPI Physical Exam Physical Exam Vital Signs: Temperature: 97.7, Heart Rate: 72, Respiratory Rate: 16, BP: 143/71, Pulse Oximetry: 99, Weight: 37.000 Oxygen Flow Rate: 0 Physical Exam General: Patient is awake, alert, oriented x4 in no acute distress Head: Normocephalic and atraumatic. Eyes: Conjunctival normal. EOMI. PERRL. ENT: Mucous membranes moist. Neck: Supple, trachea is midline. Chest: Clear to auscultation bilaterally without rales, rhonchi, or wheezes. There is no accessory muscle use or retractions. Cardiac: RRR without murmurs, gallops, or rubs. Progress Results/Orders Results/Orders Vital Signs 01/20/25 04:48 Temp 97.7 Pulse 72 Resp 16 B/P (MAP) 143/71 Pulse Ox 99 O2 Flow Rate 0 Medical Decision Making Findings Patient presents to the emergency room with requesting medications as per HPI. I do not believe she is suffering from a medical emergency. I have no idea what medication she is supposed to be taking. She is everything from Paloperpodon to Thorazine listed in her med rec history. I have spoken with her that she needs to follow up with her doctor. No SI/HI Departure Disposition: HOME / SELF CARE / HOMELESS Impression: Primary Impression: General medical exam Condition: Stable Discharge Instructions: Medicine Refill at the Emergency Department Additional Instructions: Follow up with [facility] tomorrow to renew/adjust your medications. Referrals: NO PRIMARY CARE PROVIDER (PCP) [facility] Signature Scribe Signature: No scribe Attestation: The note accurately reflects work and decisions made by me.Jarod Urbina MD 01/20/25 04:59 JAROD URBINA MD Jan 20, 2025 04:54
[2025-01-20 05:08] VITALS: BP 143/71; PULSE 75; RESP 16; TEMP 97.7; O2SAT 99
== END 2025-01-20 05:11 | disposition home or self-care (01) ==
LOC: ER 04:46
DX: Z00.00 Encounter for general adult medical examination without abnormal findings (principal); G89.29 Other chronic pain; F41.9 Anxiety disorder, unspecified; F20.9 Schizophrenia, unspecified; K21.9 Gastro-esophageal reflux disease without esophagitis; F32.A Depression, unspecified; F12.90 Cannabis use, unspecified, uncomplicated; F15.90 Other stimulant use, unspecified, uncomplicated; Z88.1 Allergy status to other antibiotic agents; Z88.5 Allergy status to narcotic agent; Z86.19 Personal history of other infectious and parasitic diseases; Z86.14 Personal history of Methicillin resistant Staphylococcus aureus infection; Z87.440 Personal history of urinary (tract) infections; Z90.710 Acquired absence of both cervix and uterus; Z79.899 Other long term (current) drug therapy; Z56.0 Unemployment, unspecified; Z59.00 Homelessness unspecified; Z60.2 Problems related to living alone
CPT/HCPCS: 99281

== ENCOUNTER 2025-01-21 06:19 | Emergency (ER) | payer MEDICAID ==
[2025-01-22] MEDS ORDERED: DIAZ5TAB5 PO (23:32)
[2025-01-22] MEDS ORDERED: DIAZ-351 PO (23:33)
== END 2025-01-21 07:12 | disposition left against medical advice (07) ==
LOC: ER 06:19
DX: F32.A Depression, unspecified (principal); Z53.21 Procedure and treatment not carried out due to patient leaving prior to being seen by health care provider; Z88.1 Allergy status to other antibiotic agents; Z88.8 Allergy status to other drugs, medicaments and biological substances; Z88.5 Allergy status to narcotic agent

== ENCOUNTER 2025-01-22 21:48 | Emergency (ER) | payer MEDICAID ==
[~2025-01-22] VITALS: Ht 165.1 cm; Wt 46.8 kg
[2025-01-22 22:23] VITALS: BP 90/64; PULSE 66; O2SAT 97
[2025-01-22] MEDS ORDERED: DIAZ5TAB5 PO (23:32)
[2025-01-22] MEDS ORDERED: DIAZ-351 PO (23:33)
--- NOTE | 2025-01-22 23:36 | Physician Documentation ---
History of Present Illness ~ Chief Complaint: Anxiety Stated Complaint: ANXIETY Time Seen by MD: 22:31 Primary Medical Doctor: KITTY SIMS Patient is a 64-year-old female that reports to the emergency department for medication refill. Reports that she is scheduled to see a primary care provider next Sunday but he is currently out of her Valium that she greatly needs for her anxiety. Patient reports that the primary care provider will be re-evaluating her mental health medications next week. Patient denies any other symptoms at this time. Medication Reconciliation Allergies: Coded Allergies: meclizine (Verified Allergy, Severe, FACIAL EDEMA, 05/22/24) ciprofloxacin (Verified Allergy, Unknown, 05/22/24) tramadol HCl (Verified Allergy, Unknown, 05/22/24) Scheduled Albuterol Sulfate (Proventil Hfa), 2 PUFFS INH Q6H Albuterol Sulfate (Proventil Hfa), 2 PUFFS INH Q6H Amitriptyline Hcl (Amitriptyline Hcl), 50 MG PO HS, (Reported) Cephalexin (Keflex), 1 CAP PO Q8H, (Reported) Chlorpromazine HCl (Chlorpromazine HCl), 3 TAB PO HS, (Reported) Clindamycin HCL* (Clindamycin HCL*), 1 CAP PO Q6H Clindamycin HCl (Clindamycin HCl CAPSULE), 3 CAP PO TID Diphenhydramine Hcl (Benadryl), 25 MG PO BID PRN ITCHING, (Reported) Diphenhydramine Hcl (Benadryl), 1 CAP PO Q8H Doxycycline Hyclate (Doxycycline Hyclate), 1 CAP PO Q12H Fluticasone/Vilanterol (Breo Ellipta 200-25 Mcg INH), 1 PUFF INH DAILY Hydroxyzine Hcl (Atarax), 25 MG PO Q8H Ivermectin (Ivermectin), 3 TAB PO ONCE Lactobac Cmb #3/Fos/Pantethine (Probiotic & Acidophilus Cap), 1 CAP PO DAILY Loperamide HCl (Imodium A-D), 1 CAP PO Q8H Loperamide Hcl (Loperamide), 1 TAB PO PRN Meclizine HCl (Meclizine HCl), 1 TAB PO Q8H Meclizine HCl (Meclizine HCl), 1 TAB PO Q8H Meclizine HCl (Meclizine HCl), 1 TAB PO BID Meclizine HCl (Meclizine HCl), 1 TAB PO TID PRN Miconazole Nitrate (Monistat 7), 1 APPLICATOR VG HS Mupirocin Calcium (Mupirocin), 1 GM TOP BID Naproxen (Naproxen), 1 TAB PO Q12H, (Reported) Nitrofurantoin Macrocrystal (Nitrofurantoin), 100 MG PO BID ONDANSETRON ODT 4mg tablet (Ondansetron Odt), 1 TABLET PO Q6H Omeprazole (Omeprazole), 1 TAB PO DAILY, (Reported) Ondansetron Hcl (Zofran), 1 TAB PO Q8H Paliperidone Palmitate (Invega Sustenna), 1 SYR IM Q30D Pantoprazole Sodium (PROTONIX tablet), 1 TAB PO DAILY Permethrin (Lice Treatment), 1 APPLIC TOP ONCE Permethrin (Permethrin), 2 APPLIC TOP ONCE Permethrin 5% Cream* (Elimite 5% Cream*), 1 APPLIC TP ONCE, (Reported) Phenazopyridine HCl (Pyridium), 1 TAB PO Q8H Pip Butox/Pyrethrins/Permeth (Rid Complete Lice Kit), 1 EACH TP ONCE Pip Butox/Pyrethrins/Permeth (Rid Complete 1-2-3 Lice Kit), 1 EACH TP DAILY Piperonyl Butoxide/Pyrethrins (Rid Lice Killing Shampoo), 1 BOTTLE TOP BID Ranitidine HCl (Zantac), 1 TAB PO Q12H Scheduled PRN Albuterol Sulfate (Proair Hfa), 2 PUFFS IH Q4H PRN for SOB or wheezing Camphor (Benadryl Anti-Itch), 85 GM TP Q6H PRN for itching Cyclobenzaprine* (Cyclobenzaprine*), 1 TABLET PO Q8H PRN for muscle spasms Hydrocodone/Acetaminophen ([place] 5-325 Tablet), 1 TAB PO TID PRN PRN for pain ONDANSETRON ODT 4mg tablet (Ondansetron Odt), 1 TABLET PO Q6H PRN for nausea/vomiting ONDANSETRON ODT 4mg tablet (Ondansetron Odt), 1 TABLET PO Q6H PRN for nausea/vomiting Ondansetron (Zofran Odt), 8 MG PO QID PRN for nausea/vomiting Ondansetron (Zofran Odt), 4 MG PO Q6H PRN for nausea/vomiting Ondansetron 8mg ODT (Ondansetron Odt), 1 TAB PO TID PRN for nausea Oxycodone HCl/Acetaminophen (Percocet 5-325 mg Tablet), 1 TAB PO Q12H PRN PRN for pain Prochlorperazine Maleate (Compazine), 1 TAB PO TID PRN for dizziness/vertigo Miscellaneous Medications [albut] Past Medical History Past Medical History: Vertigo, *PULMONARY*, Pneumonia, Cholelithiasis, GERD, Hepatitis C, *RENAL/*, UTI, Chronic Pain, Chronic Back Pain, MRSA Abscess, Anxiety, Depression, Schizophrenia Past Surgical History: hysterectomy, tonsillectomy, tubal ligation Alcohol Use: None Drug Use: marijuana, methamphetamine Lives with: Alone Lives In: Homeless Occupation: unemployed, disabled Review of Systems ROS As stated above in the HPI, otherwise all systems are reviewed and negative. Physical Exam Vital Signs: Temperature: 98.0, Heart Rate: 66, Respiratory Rate: 24, BP: 90/64, Pulse Oximetry: 97, Weight: 46.800 Oxygen Flow Rate: 0 Physical Exam VITALS: Reviewed and as above. GENERAL: Alert, no apparent distress. HEENT: Normocephalic, atraumatic, PERRL, EOMI, dry mucosa, no erythema RESPIRATORY: Lungs clear, normal breath sounds, no respiratory distress. CHEST: No accessory muscle use, no retractions CV: Regular rate, rhythm, no edema, no murmur, No: JVD GI: Soft, non-tender, bowels sounds present, no rebound, guarding, or rigidity BACK: No CVA tenderness, or swelling MUSCULOSKELETAL No deformities, no edema SKIN: Warm and dry, no rash NEURO: Oriented x4, No motor or sensory deficit PSYCH: Normal mood and affect, no agitation Progress Results/Orders Results/Orders Vital Signs 01/22/25 22:23 Temp 98.0 Pulse 66 Resp 24 B/P (MAP) 90/64 Pulse Ox 97 O2 Flow Rate 0 Medical Decision Making Findings Patient is a 64-year-old female that was seen here in the emergency department for evaluation of medication refill. Patient was provided with Valium here in the emergency department prior to discharge. The patient was prescribed 5 mg Valium t.i.d. times 30 days. Patient will follow up with her primary care provider next Sunday. Patient will return to the emergency department with any worsening or recurrent symptoms or any additional concerning symptoms that we discussed here today. Patient was also educated on not driving or operating equipment while taking Valium. Differential Dx:Considerations: Include: Alcohol abuse, Anxiety, Bipolar disorder, Conversion disorder, Depression, Encephaloathy, Homicidal, Panic disorder, Personality disorder, Schizophrenia, Substance abuse, Suicidal, Other Departure Disposition: 01 HOME / SELF CARE / HOMELESS Impression: Primary Impression: Anxiety Additional Impression: Medication refill Condition: Stable Discharge Instructions: Generalized Anxiety Disorder, Adult Additional Instructions: Patient is a 64-year-old female that was seen here in the emergency department for evaluation of medication refill. Patient was provided with Valium here in the emergency department prior to discharge. The patient was prescribed 5 mg Valium t.i.d. times 30 days. Patient will follow up with her primary care provider next Sunday. Patient will return to the emergency department with any worsening or recurrent symptoms or any additional concerning symptoms that we discussed here today. Patient was also educated on not driving or operating equipment while taking Valium. Referrals: NO PRIMARY CARE PROVIDER (PCP) Prescriptions Diazepam (Diazepam) 5 Mg Tablet 1 TAB PO TID PRN PRN for anxiety for 30 Days, #90 TAB 0 Refills Prov: SANDRA MORE 01/22/25 Education Educated: Patient Educated regarding: diagnosis, treatment, need for follow up Signature Scribe Signature: A Attestation: Scribed for Sandra More by DEBO Rodriguez . 01/22/25 23:39 SANDRA MORE Jan 22, 2025 23:36
[2025-01-22 23:41] VITALS: TEMP 98
[2025-01-23 00:25] VITALS: RESP 22
== END 2025-01-22 23:42 | disposition home or self-care (01) ==
LOC: ER 21:49
DX: F41.9 Anxiety disorder, unspecified (principal); F20.9 Schizophrenia, unspecified; G89.29 Other chronic pain; F32.A Depression, unspecified; K21.9 Gastro-esophageal reflux disease without esophagitis; F12.90 Cannabis use, unspecified, uncomplicated; F15.90 Other stimulant use, unspecified, uncomplicated; Z76.0 Encounter for issue of repeat prescription; Z86.14 Personal history of Methicillin resistant Staphylococcus aureus infection; Z86.19 Personal history of other infectious and parasitic diseases; Z87.440 Personal history of urinary (tract) infections; Z88.1 Allergy status to other antibiotic agents; Z88.5 Allergy status to narcotic agent; Z90.710 Acquired absence of both cervix and uterus; Z79.899 Other long term (current) drug therapy; Z56.0 Unemployment, unspecified; Z59.00 Homelessness unspecified; Z60.2 Problems related to living alone
CPT/HCPCS: 99283

== ENCOUNTER 2025-01-28 04:00 | Emergency (ER) | payer MEDICAID ==
[~2025-01-28] VITALS: Ht 165.1 cm; Wt 46.8 kg
[~2025-01-28 04:00] MED LIST changes: +DIAZ-351 PO; +DIAZ5TAB5 PO
--- NOTE | 2025-01-28 04:44 | Physician Documentation ---
HPI ~ General Chief Complaint: Medication Request Stated Complaint: MEDICATION REQUEST Time Seen by MD: 04:44 Primary Medical Doctor: KITTY BOWEN History of Present Illness HPI Comments Patient presents to the emergency room requesting a lidocaine patch. She was seen at [facility] and she states the patch that has now dirty and coming off. Medication Reconciliation Allergies: Coded Allergies: meclizine (Verified Allergy, Severe, FACIAL EDEMA, 05/22/24) ciprofloxacin (Verified Allergy, Unknown, 05/22/24) tramadol HCl (Verified Allergy, Unknown, 05/22/24) Scheduled Albuterol Sulfate (Proventil Hfa), 2 PUFFS INH Q6H Albuterol Sulfate (Proventil Hfa), 2 PUFFS INH Q6H Amitriptyline Hcl (Amitriptyline Hcl), 50 MG PO HS, (Reported) Cephalexin (Keflex), 1 CAP PO Q8H, (Reported) Chlorpromazine HCl (Chlorpromazine HCl), 3 TAB PO HS, (Reported) Clindamycin HCL* (Clindamycin HCL*), 1 CAP PO Q6H Clindamycin HCl (Clindamycin HCl CAPSULE), 3 CAP PO TID Diphenhydramine Hcl (Benadryl), 25 MG PO BID PRN ITCHING, (Reported) Diphenhydramine Hcl (Benadryl), 1 CAP PO Q8H Doxycycline Hyclate (Doxycycline Hyclate), 1 CAP PO Q12H Fluticasone/Vilanterol (Breo Ellipta 200-25 Mcg INH), 1 PUFF INH DAILY Hydroxyzine Hcl (Atarax), 25 MG PO Q8H Ivermectin (Ivermectin), 3 TAB PO ONCE Lactobac Cmb #3/Fos/Pantethine (Probiotic & Acidophilus Cap), 1 CAP PO DAILY Loperamide HCl (Imodium A-D), 1 CAP PO Q8H Loperamide Hcl (Loperamide), 1 TAB PO PRN Meclizine HCl (Meclizine HCl), 1 TAB PO Q8H Meclizine HCl (Meclizine HCl), 1 TAB PO Q8H Meclizine HCl (Meclizine HCl), 1 TAB PO BID Meclizine HCl (Meclizine HCl), 1 TAB PO TID PRN Miconazole Nitrate (Monistat 7), 1 APPLICATOR VG HS Mupirocin Calcium (Mupirocin), 1 GM TOP BID Naproxen (Naproxen), 1 TAB PO Q12H, (Reported) Nitrofurantoin Macrocrystal (Nitrofurantoin), 100 MG PO BID ONDANSETRON ODT 4mg tablet (Ondansetron Odt), 1 TABLET PO Q6H Omeprazole (Omeprazole), 1 TAB PO DAILY, (Reported) Ondansetron Hcl (Zofran), 1 TAB PO Q8H Paliperidone Palmitate (Invega Sustenna), 1 SYR IM Q30D Pantoprazole Sodium (PROTONIX tablet), 1 TAB PO DAILY Permethrin (Lice Treatment), 1 APPLIC TOP ONCE Permethrin (Permethrin), 2 APPLIC TOP ONCE Permethrin 5% Cream* (Elimite 5% Cream*), 1 APPLIC TP ONCE, (Reported) Phenazopyridine HCl (Pyridium), 1 TAB PO Q8H Pip Butox/Pyrethrins/Permeth (Rid Complete Lice Kit), 1 EACH TP ONCE Pip Butox/Pyrethrins/Permeth (Rid Complete 1-2-3 Lice Kit), 1 EACH TP DAILY Piperonyl Butoxide/Pyrethrins (Rid Lice Killing Shampoo), 1 BOTTLE TOP BID Ranitidine HCl (Zantac), 1 TAB PO Q12H Scheduled PRN Albuterol Sulfate (Proair Hfa), 2 PUFFS IH Q4H PRN for SOB or wheezing Camphor (Benadryl Anti-Itch), 85 GM TP Q6H PRN for itching Cyclobenzaprine* (Cyclobenzaprine*), 1 TABLET PO Q8H PRN for muscle spasms Diazepam (Diazepam), 1 TAB PO Q8H PRN for anxiety, (Reported) Diazepam (Diazepam), 1 TAB PO TID PRN PRN for anxiety Hydrocodone/Acetaminophen ([place] 5-325 Tablet), 1 TAB PO TID PRN PRN for pain ONDANSETRON ODT 4mg tablet (Ondansetron Odt), 1 TABLET PO Q6H PRN for nausea/vomiting ONDANSETRON ODT 4mg tablet (Ondansetron Odt), 1 TABLET PO Q6H PRN for nausea/vomiting Ondansetron (Zofran Odt), 8 MG PO QID PRN for nausea/vomiting Ondansetron (Zofran Odt), 4 MG PO Q6H PRN for nausea/vomiting Ondansetron 8mg ODT (Ondansetron Odt), 1 TAB PO TID PRN for nausea Oxycodone HCl/Acetaminophen (Percocet 5-325 mg Tablet), 1 TAB PO Q12H PRN PRN for pain Prochlorperazine Maleate (Compazine), 1 TAB PO TID PRN for dizziness/vertigo Miscellaneous Medications [albut] Past Medical History Past Medical History: Vertigo, *PULMONARY*, Pneumonia, Cholelithiasis, GERD, Hepatitis C, *RENAL/*, UTI, Chronic Pain, Chronic Back Pain, MRSA Abscess, Anxiety, Depression, Schizophrenia Past Surgical History: hysterectomy, tonsillectomy, tubal ligation Alcohol Use: None Drug Use: marijuana, methamphetamine Lives with: Alone Lives In: Homeless Occupation: unemployed, disabled Review of Systems ROS All review of systems negative except as per HPI Physical Exam Physical Exam Vital Signs: Temperature: 98.0, Heart Rate: 70, Respiratory Rate: 16, BP: 123/ 45, Pulse Oximetry: 99, Weight: 46.800 Physical Exam General: Patient is awake, alert, oriented x4 in no acute distress Head: Normocephalic and atraumatic. Eyes: Conjunctival normal. EOMI. PERRL. ENT: Mucous membranes moist. Neck: Supple, trachea is midline. Chest: Clear to auscultation bilaterally without rales, rhonchi, or wheezes. There is no accessory muscle use or retractions. Cardiac: RRR without murmurs, gallops, or rubs. Back: Patient has a dirty lidocaine patch attached to her left flank Progress Results/Orders Results/Orders Vital Signs 01/28/25 04:30 Temp 98.0 Pulse 70 Resp 16 B/P (MAP) 123/45 Pulse Ox 99 Medical Decision Making Findings Patient presents to the emergency room for evaluation of lidocaine patch. She is well known to the emergency room and has a history of showing up in the middle of the night. I do not feel emergent labs or imaging is necessary Differential Dx:Considerations: Include: Adverse circumstances, Economic, Psychosocial, Medical services unavail., Medication refill, Medication non- compliance, Other Departure Disposition: 01 HOME / SELF CARE / HOMELESS Impression: Primary Impression: General medical exam Condition: Stable Discharge Instructions: Medicine Refill at the Emergency Department Referrals: NO PRIMARY CARE PROVIDER (PCP) Signature Scribe Signature: No scribe Attestation: The note accurately reflects work and decisions made by me.Jarod Urbina MD 01/28/25 04:47 JAROD URBINA MD Jan 28, 2025 04:44
[2025-01-28 05:05] VITALS: BP 122/48; PULSE 69; RESP 16; TEMP 98.6; O2SAT 98
== END 2025-01-28 05:06 | disposition home or self-care (01) ==
LOC: ER 04:00
DX: Z00.00 Encounter for general adult medical examination without abnormal findings (principal); G89.29 Other chronic pain; F20.9 Schizophrenia, unspecified; K21.9 Gastro-esophageal reflux disease without esophagitis; F41.9 Anxiety disorder, unspecified; F32.A Depression, unspecified; F12.90 Cannabis use, unspecified, uncomplicated; F15.90 Other stimulant use, unspecified, uncomplicated; Z86.14 Personal history of Methicillin resistant Staphylococcus aureus infection; Z86.19 Personal history of other infectious and parasitic diseases; Z88.1 Allergy status to other antibiotic agents; Z88.5 Allergy status to narcotic agent; Z90.710 Acquired absence of both cervix and uterus; Z87.440 Personal history of urinary (tract) infections; Z79.899 Other long term (current) drug therapy; Z60.2 Problems related to living alone; Z59.00 Homelessness unspecified; Z56.0 Unemployment, unspecified
CPT/HCPCS: 99283

== ENCOUNTER 2025-02-06 06:42 | Emergency (ER) | payer MEDICAID ==
[~2025-02-06] VITALS: Ht 165.1 cm; Wt 43.9 kg
[~2025-02-06 06:42] MED LIST changes: +PERM60CR21 TOP; -PERM60CR4 TOP
--- NOTE | 2025-02-06 07:21 | Physician Documentation ---
History of Present Illness ~ Chief Complaint: Rib pain Stated Complaint: RIB PAIN S/P FALL Time Seen by MD: 07:02 OK to notify your PCP?: Yes Primary Medical Doctor: KITTY BOWEN Mode of Arrival: [place] HPI 64-YEAR-OLD FEMALE PATIENT WHO IS HOMELESS CAME TO THE EMERGENCY ROOM BECAUSE OF LEFT-SIDED CHEST WALL PAIN. NO RECENT TRAUMA BUT SHE SAYS SHE FELL ABOUT ONE WEEK AGO AND HAVING SOME PAIN IN THE LEFT CHEST WALL. NO OTHER COMPLAINTS. Tetanus within 5 Years?: No (unk) Allergies: Coded Allergies: meclizine (Verified Allergy, Severe, FACIAL EDEMA, 02/06/25) ciprofloxacin (Verified Allergy, Unknown, 02/06/25) tramadol HCl (Verified Allergy, Unknown, 02/06/25) Active Prescriptions See Medication Reconciliation Form. Medication Reconciliation Scheduled Albuterol Sulfate (Proventil Hfa), 2 PUFFS INH Q6H Albuterol Sulfate (Proventil Hfa), 2 PUFFS INH Q6H Amitriptyline Hcl (Amitriptyline Hcl), 50 MG PO HS, (Reported) Cephalexin (Keflex), 1 CAP PO Q8H, (Reported) Chlorpromazine HCl (Chlorpromazine HCl), 3 TAB PO HS, (Reported) Clindamycin HCL* (Clindamycin HCL*), 1 CAP PO Q6H Clindamycin HCl (Clindamycin HCl CAPSULE), 3 CAP PO TID Diphenhydramine Hcl (Benadryl), 25 MG PO BID PRN ITCHING, (Reported) Diphenhydramine Hcl (Benadryl), 1 CAP PO Q8H Doxycycline Hyclate (Doxycycline Hyclate), 1 CAP PO Q12H Fluticasone/Vilanterol (Breo Ellipta 200-25 Mcg INH), 1 PUFF INH DAILY Hydroxyzine Hcl (Atarax), 25 MG PO Q8H Ivermectin (Ivermectin), 3 TAB PO ONCE Lactobac Cmb #3/Fos/Pantethine (Probiotic & Acidophilus Cap), 1 CAP PO DAILY Loperamide HCl (Imodium A-D), 1 CAP PO Q8H Loperamide Hcl (Loperamide), 1 TAB PO PRN Meclizine HCl (Meclizine HCl), 1 TAB PO Q8H Meclizine HCl (Meclizine HCl), 1 TAB PO Q8H Meclizine HCl (Meclizine HCl), 1 TAB PO BID Meclizine HCl (Meclizine HCl), 1 TAB PO TID PRN Miconazole Nitrate (Monistat 7), 1 APPLICATOR VG HS Mupirocin Calcium (Mupirocin), 1 GM TOP BID Naproxen (Naproxen), 1 TAB PO Q12H, (Reported) Nitrofurantoin Macrocrystal (Nitrofurantoin), 100 MG PO BID ONDANSETRON ODT 4mg tablet (Ondansetron Odt), 1 TABLET PO Q6H Omeprazole (Omeprazole), 1 TAB PO DAILY, (Reported) Ondansetron Hcl (Zofran), 1 TAB PO Q8H Paliperidone Palmitate (Invega Sustenna), 1 SYR IM Q30D Pantoprazole Sodium (PROTONIX tablet), 1 TAB PO DAILY Permethrin (Lice Treatment), 1 APPLIC TOP ONCE Permethrin (Permethrin), 2 APPLIC TOP ONCE Permethrin 5% Cream* (Elimite 5% Cream*), 1 APPLIC TP ONCE, (Reported) Phenazopyridine HCl (Pyridium), 1 TAB PO Q8H Pip Butox/Pyrethrins/Permeth (Rid Complete Lice Kit), 1 EACH TP ONCE Pip Butox/Pyrethrins/Permeth (Rid Complete 1-2-3 Lice Kit), 1 EACH TP DAILY Piperonyl Butoxide/Pyrethrins (Rid Lice Killing Shampoo), 1 BOTTLE TOP BID Ranitidine HCl (Zantac), 1 TAB PO Q12H Scheduled PRN Albuterol Sulfate (Proair Hfa), 2 PUFFS IH Q4H PRN for SOB or wheezing Camphor (Benadryl Anti-Itch), 85 GM TP Q6H PRN for itching Cyclobenzaprine* (Cyclobenzaprine*), 1 TABLET PO Q8H PRN for muscle spasms Diazepam (Diazepam), 1 TAB PO Q8H PRN for anxiety, (Reported) Diazepam (Diazepam), 1 TAB PO TID PRN PRN for anxiety Hydrocodone/Acetaminophen ([place] 5-325 Tablet), 1 TAB PO TID PRN PRN for pain ONDANSETRON ODT 4mg tablet (Ondansetron Odt), 1 TABLET PO Q6H PRN for nausea/vomiting ONDANSETRON ODT 4mg tablet (Ondansetron Odt), 1 TABLET PO Q6H PRN for nausea/vomiting Ondansetron (Zofran Odt), 8 MG PO QID PRN for nausea/vomiting Ondansetron (Zofran Odt), 4 MG PO Q6H PRN for nausea/vomiting Ondansetron 8mg ODT (Ondansetron Odt), 1 TAB PO TID PRN for nausea Oxycodone HCl/Acetaminophen (Percocet 5-325 mg Tablet), 1 TAB PO Q12H PRN PRN for pain Prochlorperazine Maleate (Compazine), 1 TAB PO TID PRN for dizziness/vertigo Miscellaneous Medications [albut] Past Medical History Past Medical History: Vertigo, *PULMONARY*, Pneumonia, Cholelithiasis, GERD, Hepatitis C, *RENAL/*, UTI, Chronic Pain, Chronic Back Pain, MRSA Abscess, Anxiety, Depression, Schizophrenia Past Surgical History: hysterectomy, tonsillectomy, tubal ligation Alcohol Use: None Drug Use: marijuana, methamphetamine Lives with: Alone Lives In: Homeless Occupation: unemployed, disabled Review of Systems ROS STATED ABOVE IN THE HPI, OTHERWISE ALL SYSTEMS ARE REVIEWED AND NEGATIVE. Physical Exam Vital Signs: Temperature: 97.8, Heart Rate: 86, Respiratory Rate: 18, BP: 127/87, Pulse Oximetry: 92, Weight: 43.900 Oxygen Flow Rate: 0 Physical Exam REVIEWED VITAL SIGNS AND THEY ARE WELL WITHIN NORMAL RANGE. CONST: NOT IN ACUTE CARDIOPULMONARY DISTRESS HEAD: ATRAUMATIC EYES: NORMAL CONJUNCTIVA ENT: NORMAL EXTERNAL EARS, NOSE AND MOUTH. MOIST MUCOUS MEMBRANES NECK: FULL RANGE OF MOTION. NO MENINGISMUS RESP: CLEAR TO AUSCULTATION BILATERALLY. NORMAL WORK OF BREATHING That is tenderness at the left lateral lower chest wall. No crepitation no evidence of surgical emphysema. CARDIO: REGULAR RATE AND RHYTHM, NO MURMURS. SKIN WELL PERFUSED, HEART RATE 84 BEATS PER MINUTE ABD: SOFT, NON-TENDER, NON-DISTENDED. NORMAL BOWEL SOUNDS. NO REBOUND OR GUARDING SKIN: NO PETECHIAE OR RASHES. WARM AND DRY BACK: NO MIDLINE OR FLANK TENDERNESS EXT: NO CYANOSIS, OR EDEMA NEURO: AWAKE AND ALERT PSYCH: NORMAL MOOD AND AFFECT Progress Results/Orders Results/Orders Orders - RADHA ADRIAN MD Uni Ribs With Pa Chest (02/06/25 07:04) Completed Orders - RADHA ADRIAN MD Uni Ribs With Pa Chest (02/06/25 07:04) Vital Signs 02/06/25 02/06/25 06:49 08:12 Temp 97.8 97.8 Pulse 86 73 Resp 18 16 B/P (MAP) 127/87 126/94 (105) Pulse Ox 92 95 O2 Flow Rate 0 0 Medical Decision Making Findings ER COURSE/MED. DECISION MAKING REVIEW OF RECORD(S): PREVIOUS MEDICAL RECORDS HERE AND/OR EXTERNAL MEDICAL RECORDS, SUCH THAT PROVIDED DIRECTLY BY THE PATIENT, BY EMS AND/OR OUTSIDE MEDICAL FACILITIES, IF AVAILABLE, WERE REVIEWED. COMORBIDITIES HOMELESSNESS MDM DURING THE PHYSICAL EXAMINATION, THE FINDINGS SUGGESTIVE OF ACUTE LIFE- THREATENING CONDITION SUCH JVD, TRACHEAL DEVIATION, ACIDOTIC BREATHING, NOISY STRIDOROUS BREATH SOUNDS, PULSES PARADOXUS, MUFFLED HEART SOUNDS, UNEQUAL BREAT H SOUNDS, ABDOMINAL RIGIDITY AND REBOUND TENDERNESS, FOCAL NEUROLOGICAL DEFICITS, COOL CLAMMY SKIN, SEVERE HYPOTENSION, SEVERE TACHYCARDIA OR BRADYCARDIA ARE ABSENT. PATIENT PRESENTING FOR has chest wall pain. VITAL SIGNS REVIEWED. PATIENT IS HEMODYNAMICALLY STABLE AND DOES NOT MEET SIRS CRITERIA. PATIENT APPEARS NONTOXIC ON EXAM. Not in acute cardiopulmonary distress. Tenderness at the left lateral chest wall lower part. X-ray does not reveal any pneumothorax. TREATMENT/DISPOSITION: THE PATIENT'S PRESENTATION IS MOST CONSISTENT WITH left six nine and 10th rib fracture nondisplaced without pneumothorax PRIOR TO DISCHARGE I INDEPENDENTLY REVIEWED THE PATIENTS PAST MEDICAL HISTORY, CLINICAL RISK FACTORS, COMORBIDITIES, AND SOCIAL DETERMINANTS OF HEALTH AND DIAGNOSTIC STUDIES. THE PATIENT APPEARS TO BE A SAFE DISCHARGE HOME WITH CLOSE OUTPATIENT PCP FOLLOW-UP I HAD EXTENSIVE DISCUSSION WITH PATIENT REGARDING MANAGEMENT, DISPOSITION AND FOLLOW UP. POTENTIAL SYMPTOM ETIOLOGY WAS DISCUSSED, AND SHARED DECISION MAKING OCCURRED. THEY WILL RETURN IMMEDIATELY IF SYMPTOMS WORSEN, DO NOT IMPROVE, OR THEY HAVE ANY FURTHER CONCERNS. PRIOR TO DISCHARGE ALL QUESTIONS WERE ADDRESSED. THE PATIENT IS AWARE THAT THE PURPOSE OF THIS VISIT WAS TO SCREEN FOR AN ACUTE MEDICAL EMERGENCY REQUIRING EMERGENT STABILIZATION. CHRONIC AND OCCULT CONDITIONS, INCLUDING MALIGNANCIES, HAVE NOT BEEN RULED OUT. IF PATIENT IS UNABLE TO ARRANGE FOLLOW-UP STATED IN THE DISCHARGE INSTRUCTIONS AND FURTHER DISCUSSED WITH THE PATIENT DIRECTLY, OR THEIR SYMPTOMS WORSEN/BECOME MORE CONCERNING, THEY ARE TO RETURN TO THE ER FOR REASSESSMENT IMMEDIATELY. PRIOR TO LEAVING THE DEPARTMENT, THE PATIENT HAS A PLAN FOR DISCHARGE, HAS DECISION MAKING CAPACITY, AND ACKNOWLEDGES AN UNDERSTANDING OF THE VERBAL AND WRITTEN DISCHARGE INSTRUCTIONS. SOCIAL DETERMINANTS: PATIENT DEMONSTRATES NO OBVIOUS CHALLENGES TO FOLLOWING UP AN OUTPATIENT ALTHOUGH DID CONSIDER WHETHER PATIENT HAD ANY BARRIERS TO ACCESS CARE INCLUDING HOMELESSNESS, FOOD INSECURITY, MENTAL HEALTH, SUBSTANCE ABUSE, DISABILITIES, LIMITED ACCESS TO MEDICAL CARE, DIFFICULTY FINDING TRANSPORT, INSURANCE ISSUES, REFUSAL OF CARE OR TESTING DUE TO COST CONCERNS. MEDICAL SCREENING: I HAVE DISCUSSED WITH THE PATIENT THE NON-DEFINITIVE NATURE O F THE EMERGENCY SCREENING EXAM, DIAGNOSIS AND THE POSSIBILITY OF A VARIETY OF CONDITIONS WHICH MAY PRESENT IN ATYPICALLY BENIGN FASHION AND STRESSED THE IMPORTANCE OF CLOSE FOLLOW-UP FOR DEFINITIVE DIAGNOSIS AND TREATMENT. WE DISCUSSED SIGNS AND SYMPTOMS THAT SHOULD BE WATCHED FOR WHICH MIGHT INDICATE A MORE SERIOUS OR NEW CONDITION THAT WOULD BENEFIT FROM EMERGENCY REEVALUATION AND THE PATIENT HAS VERBALIZED UNDERSTANDING TO THIS AND MY OTHER DETAILED DISCHARGE INSTRUCTIONS AND PROMISES COMPLIANCE. I HAVE REFERRED HIM BACK TO HIS PRIMARY PHYSICIAN OF COURSE FOR A MORE DETAILED EVALUATION AND MORE DEFINITIVE DIAGNOSES. DISCLAIMER: INADVERTENT SPELLING AND GRAMMATICAL ERRORS ARE LIKELY DUE TO EMR/DICTATION SOFTWARE USE AND DO NOT REFLECT ON THE OVERALL QUALITY OF PATIENT CARE. NOTE THAT THE ELECTRONIC TIME RECORDED ON THIS NOTE DOES NOT NECESSARILY REFLECT THE ACTUAL TIME OF THE PATIENT ENCOUNTER. Differential Dx:Considerations: Include: Chest wall contusion, Flail chest, Pneumothorax, Pulmonary contusion, Rib fracture, Renal contusion, Splenic fracture, Tension pneumothorax Departure Disposition: 01 HOME / SELF CARE / HOMELESS Impression: Primary Impression: Fracture of rib Discharge Instructions: Rib Fracture Additional Instructions: Thank you for coming to our Emergency Department today. Take couple of deep breaths every now and again to keep your lungs are fully expanded despite the pain. Please ask your nurse or provider if you have questions about your care today and do not leave until all your questions have been answered. Please use any medications given as directed and follow-up with your doctor (or the doctor you were referred to) in the next 1-3 days. Your primary care doctor can help to coordinate outpatient specialty care and provide authorization for specialty referral as needed. If you do not have a primary care doctor you may follow up at a [facility]. You may also use motrin and tylenol as needed for fever and/or pain unless instructed otherwise by your provider or nurse. Indications for more urgent follow-up have been discussed, but you may return to the Emergency Department at ANY time for any worrisome or worsening symptoms. County Facilities: County Facilities: [facility]: [facility] [place] Address:[address] [place] [address] [facility]: [place] Address:[address] [place] [address] [facility]: Telemedicine Address:[address] [place] [address] [facility] Address:[address] [place] [address] Registration Billing Pharmacy Referrals [facility] Address:[address] [place] [address] Referrals: NO PRIMARY CARE PROVIDER (PCP) Prescriptions Hydrocodone Bit/Acetaminophen 5/325 MG ([place]jemoy 5/325 MG) 5 Mg/325 Mg Tablet 1-2 TAB PO Q4HPRN PRN for pain, #30 TAB Prov: RADHA ADRIAN MD 02/06/25 Ibuprofen* (Motrin*) 400 Mg Tablet 1 TAB PO Q6H PRN PRN for pain or fever for 7 Days, #30 TAB Prov: RADHA ADRIAN MD 02/06/25 Signature Scribe Signature: x Attestation: RADHA Valencia MD Feb 06, 2025 07:21
--- NOTE | 2025-02-06 07:52 | RADIOLOGY REPORT ---
[facility] EX[facility]: DI UNI RIBS WITH PA CHEST INDICATION: LEFT CHEST WALL PAIN COMPARISON: CHEST,SINGLE VIEW on DOS: 09/19/19, CHEST,SINGLE VIEW on DOS: 02/02/19 TECHNIQUE: Frontal view of the chest and <<>> views of the <<>> ribs history FINDINGS: No focal consolidation, pleural effusion or significant pneumothorax. Normal cardiomediastinal silhouette. Nondisplaced fracture of the posterior left 6th and 9th and 10th rib. IMPRESSION: No acute cardiopulmonary disease. Nondisplaced fracture of the posterior left 6th and 9th and 10th rib. Recommend correlation with point tenderness.
[2025-02-06] MEDS ORDERED: IBUP-1984 PO (09:01)
[2025-02-06] MEDS ORDERED: HYDR-3965 PO (09:01)
[2025-02-06 09:04] VITALS: BP 120/92; PULSE 77; O2SAT 95
[2025-02-06 09:24] VITALS: RESP 18
[2025-02-06] MEDS: HYDROcodone/acetaminophen 10/325mg tab PO ONE (09:24)
[2025-02-06 09:27] VITALS: TEMP 97.8
== END 2025-02-06 09:31 | disposition home or self-care (01) ==
LOC: ER 06:44
DX: S22.32XA Fracture of one rib, left side, initial encounter for closed fracture (principal); F20.9 Schizophrenia, unspecified; F32.A Depression, unspecified; F41.9 Anxiety disorder, unspecified; K21.9 Gastro-esophageal reflux disease without esophagitis; F12.90 Cannabis use, unspecified, uncomplicated; F15.90 Other stimulant use, unspecified, uncomplicated; Z88.1 Allergy status to other antibiotic agents; Z90.710 Acquired absence of both cervix and uterus; W19.XXXA Unspecified fall, initial encounter; Y93.89 Activity, other specified; Y92.89 Other specified places as the place of occurrence of the external cause; Y99.8 Other external cause status
CPT/HCPCS: 71101; 99284

== ENCOUNTER 2025-02-08 05:09 | Emergency (ER) | payer MEDICAID ==
[~2025-02-08 05:09] MED LIST changes: +HYDR-3965 PO; +IBUP-1984 PO
== END 2025-02-08 06:17 | disposition left against medical advice (07) ==
LOC: ER 05:09
DX: Z00.8 Encounter for other general examination (principal); Z53.21 Procedure and treatment not carried out due to patient leaving prior to being seen by health care provider

== ENCOUNTER 2025-02-11 01:23 | Emergency (ER) | payer MEDICAID ==
[2025-02-11 01:32] VITALS: BP 145/70; PULSE 76; RESP 16; TEMP 97.6; O2SAT 97
== END 2025-02-11 04:23 | disposition left against medical advice (07) ==
LOC: ER 01:23
DX: F41.9 Anxiety disorder, unspecified (principal); Z88.8 Allergy status to other drugs, medicaments and biological substances
CPT/HCPCS: 99281

== ENCOUNTER 2025-02-27 03:44 | Emergency (ER) | payer MEDICAID ==
[~2025-02-27] VITALS: Ht 165.1 cm; Wt 44.0 kg
[~2025-02-27 03:44] MED LIST changes: -IBUP-1984 PO
[2025-02-27 03:57] VITALS: BP 118/65; PULSE 69; RESP 20; TEMP 97.6; O2SAT 98
== END 2025-02-27 06:38 | disposition left against medical advice (07) ==
LOC: ER 03:46
DX: F32.A Depression, unspecified (principal); Z88.1 Allergy status to other antibiotic agents; Z53.21 Procedure and treatment not carried out due to patient leaving prior to being seen by health care provider
CPT/HCPCS: 99281

== ENCOUNTER 2025-03-01 06:52 | Emergency (ER) | payer MEDICAID ==
[~2025-03-01] VITALS: Ht 165.1 cm; Wt 44.6 kg
[2025-03-01 06:58] VITALS: BP 101/69; PULSE 69; TEMP 98.1; O2SAT 94
--- NOTE | 2025-03-01 07:48 | Physician Documentation ---
History of Present Illness ~ Chief Complaint: Anxiety Stated Complaint: NOT FEELING WELL Time Seen by MD: 07:28 OK to notify your PCP?: Yes Primary Medical Doctor: KITTY BOWEN Source: patient, RN/, RN notes reviewed, old records Mode of Arrival: POV Exam Limitations: no limitations HPI This homeless female has been doing meth all day yesterday and now states that she does not have psych meds does not feel well she needs her Valium. She only takes amitriptyline asleep but no other psych medications she gets her medications tomorrow. He feels anxious she denies shortness of breath chest pain she just ran out of her benzodiazepines which is what she is going to [employer] tomorrow was well she is disheveled she is upset she denies any other psychiatric medications and she is here for evaluation. She denies fevers chest pain shortness of breath nausea vomiting diarrhea. Medication Reconciliation Allergies: Coded Allergies: meclizine (Verified Allergy, Severe, FACIAL EDEMA, 02/27/25) ciprofloxacin (Verified Allergy, Unknown, 02/27/25) Scheduled Albuterol Sulfate (Proventil Hfa), 2 PUFFS INH Q6H Albuterol Sulfate (Proventil Hfa), 2 PUFFS INH Q6H Amitriptyline Hcl (Amitriptyline Hcl), 50 MG PO HS, (Reported) Cephalexin (Keflex), 1 CAP PO Q8H, (Reported) Chlorpromazine HCl (Chlorpromazine HCl), 3 TAB PO HS, (Reported) Clindamycin HCL* (Clindamycin HCL*), 1 CAP PO Q6H Clindamycin HCl (Clindamycin HCl CAPSULE), 3 CAP PO TID Diphenhydramine Hcl (Benadryl), 25 MG PO BID PRN ITCHING, (Reported) Diphenhydramine Hcl (Benadryl), 1 CAP PO Q8H Doxycycline Hyclate (Doxycycline Hyclate), 1 CAP PO Q12H Fluticasone/Vilanterol (Breo Ellipta 200-25 Mcg INH), 1 PUFF INH DAILY Hydroxyzine Hcl (Atarax), 25 MG PO Q8H Ivermectin (Ivermectin), 3 TAB PO ONCE Lactobac Cmb #3/Fos/Pantethine (Probiotic & Acidophilus Cap), 1 CAP PO DAILY Loperamide HCl (Imodium A-D), 1 CAP PO Q8H Loperamide Hcl (Loperamide), 1 TAB PO PRN Meclizine HCl (Meclizine HCl), 1 TAB PO Q8H Meclizine HCl (Meclizine HCl), 1 TAB PO Q8H Meclizine HCl (Meclizine HCl), 1 TAB PO BID Meclizine HCl (Meclizine HCl), 1 TAB PO TID PRN Miconazole Nitrate (Monistat 7), 1 APPLICATOR VG HS Mupirocin Calcium (Mupirocin), 1 GM TOP BID Naproxen (Naproxen), 1 TAB PO Q12H, (Reported) Nitrofurantoin Macrocrystal (Nitrofurantoin), 100 MG PO BID ONDANSETRON ODT 4mg tablet (Ondansetron Odt), 1 TABLET PO Q6H Omeprazole (Omeprazole), 1 TAB PO DAILY, (Reported) Ondansetron Hcl (Zofran), 1 TAB PO Q8H Paliperidone Palmitate (Invega Sustenna), 1 SYR IM Q30D Pantoprazole Sodium (PROTONIX tablet), 1 TAB PO DAILY Permethrin (Lice Treatment), 1 APPLIC TOP ONCE Permethrin (Permethrin), 2 APPLIC TOP ONCE Permethrin 5% Cream* (Elimite 5% Cream*), 1 APPLIC TP ONCE, (Reported) Phenazopyridine HCl (Pyridium), 1 TAB PO Q8H Pip Butox/Pyrethrins/Permeth (Rid Complete Lice Kit), 1 EACH TP ONCE Pip Butox/Pyrethrins/Permeth (Rid Complete 1-2-3 Lice Kit), 1 EACH TP DAILY Piperonyl Butoxide/Pyrethrins (Rid Lice Killing Shampoo), 1 BOTTLE TOP BID Ranitidine HCl (Zantac), 1 TAB PO Q12H Scheduled PRN Albuterol Sulfate (Proair Hfa), 2 PUFFS IH Q4H PRN for SOB or wheezing Camphor (Benadryl Anti-Itch), 85 GM TP Q6H PRN for itching Cyclobenzaprine* (Cyclobenzaprine*), 1 TABLET PO Q8H PRN for muscle spasms Diazepam (Diazepam), 1 TAB PO Q8H PRN for anxiety, (Reported) Diazepam (Diazepam), 1 TAB PO TID PRN PRN for anxiety Hydrocodone Bit/Acetaminophen 5/325 MG ([place] 5/325 MG), 1-2 TAB PO Q4HPRN PRN for pain Hydrocodone/Acetaminophen ([place] 5-325 Tablet), 1 TAB PO TID PRN PRN for pain ONDANSETRON ODT 4mg tablet (Ondansetron Odt), 1 TABLET PO Q6H PRN for nausea/vomiting ONDANSETRON ODT 4mg tablet (Ondansetron Odt), 1 TABLET PO Q6H PRN for nausea/vomiting Ondansetron (Zofran Odt), 8 MG PO QID PRN for nausea/vomiting Ondansetron (Zofran Odt), 4 MG PO Q6H PRN for nausea/vomiting Ondansetron 8mg ODT (Ondansetron Odt), 1 TAB PO TID PRN for nausea Oxycodone HCl/Acetaminophen (Percocet 5-325 mg Tablet), 1 TAB PO Q12H PRN PRN for pain Prochlorperazine Maleate (Compazine), 1 TAB PO TID PRN for dizziness/vertigo Miscellaneous Medications [albut] Past Medical History Past Medical History: Vertigo, *PULMONARY*, Pneumonia, Cholelithiasis, GERD, Hepatitis C, *RENAL/*, UTI, Chronic Pain, Chronic Back Pain, MRSA Abscess, Anxiety, Depression, Schizophrenia Past Surgical History: hysterectomy, tonsillectomy, tubal ligation Alcohol Use: None Drug Use: marijuana, methamphetamine Lives with: Alone Lives In: Homeless Occupation: unemployed, disabled Review of Systems All Other Systems at this time: Reviewed and Negative Physical Exam Vital Signs: RN Vital Signs have been reviewed: Yes, Temperature: 98.1, Source: Oral, Heart Rate: 69, Respiratory Rate: 16, BP: 101/69, Pulse Oximetry: 94, Weight: 44.600 Oxygen Flow Rate: 0 Physical Exam General: The patient is well developed, well nourished, nontoxic appearing and is in no acute distress. Anxious, disheveled Skin: [place], warm and dry with no rashes. HEENT: Head was normocephalic and atraumatic. Eyes - pupils equal, round, reactive to light and accommodation. Extraocular movements were intact. Conjunctivae were nonicteric. The mouth and oropharynx were clear with moist mucous membranes. Neck: Supple and nontender. Chest: Clear to auscultation bilaterally without wheezes, rales or rhonchi. No accessory muscle use. No dullness to percussion. Heart: Rate regular and rhythmic. S1, S2. No murmurs. Abdomen: Soft, nontender and nondistended. Positive bowel sounds. No guarding or rebound. No hepatosplenomegaly or palpable masses. Extremities: No cyanosis, clubbing or edema. The patient moves all extremiti es. Pulses were equal and symmetric. Neurologic: Motor sensory grossly intact Psychologic: The patient was oriented to person, place and time. The patient demonstrated poor judgement and insight. Progress Results/Orders Reviewed/noted all lab results: Yes Results/Orders Orders - JOCELYNN CHAPMAN MD Diazepam Tablet (Valium Tablet) (03/01/25 07:45) Vital Signs 03/01/25 06:58 Temp 98.1 Pulse 69 Resp 16 B/P (MAP) 101/69 Pulse Ox 94 O2 Flow Rate 0 Re-Evaluation Re-Evaluation : Re-Evaluation: Improved Progress Patient was seen and examined. Patient is given reassurance. Patient received Valium. She is not on any additional psychiatric medications. Her vitals remained stable she is hemodynamically stable. She seems to have an undiagnosed psychiatric disorder as well. He appears to have no other complaints such as infectious etiologies electrolyte abnormalities withdrawal symptoms overdose symptoms were all considered with his patient. She is a poor historian. He is substance drug abuse withdrawals all considered. Patient received Valium and was discharged home to [employer] her meds tomorrow and to follow up with the hope then Medical Decision Making Additional information obtaine: old records Findings Polysubstance drug abuse, infectious etiologies versus overdose versus withdrawals as well as undiagnosed psychiatric disorder were considered Differential Dx:Considerations: Include: Alcohol abuse, Anxiety, Bipolar disorder, Conversion disorder, Depression, Encephaloathy, Homicidal, Panic disorder, Personality disorder, Schizophrenia, Substance abuse, Suicidal, Other Departure Disposition: 01 HOME / SELF CARE / HOMELESS Impression: Primary Impression: Anxiety Additional Impressions: Homeless Methamphetamine abuse Condition: Stable Discharge Instructions: Panic Attack Referrals: NO PRIMARY CARE PROVIDER (PCP) Education Educated: Patient Educated regarding: diagnosis, need for follow up, other Signature Scribe Signature: No scribed Attestation: The note accurately reflects work and decisions made by me.Jocelynn Chapman MD 03/01/25 07:47 JOCELYNN CHAPMAN MD Mar 01, 2025 07:47
[2025-03-01 07:49] VITALS: RESP 16
== END 2025-03-01 07:52 | disposition home or self-care (01) ==
LOC: ER 06:53
DX: F41.9 Anxiety disorder, unspecified (principal); F15.10 Other stimulant abuse, uncomplicated; F20.9 Schizophrenia, unspecified; F32.A Depression, unspecified; K21.9 Gastro-esophageal reflux disease without esophagitis; F12.90 Cannabis use, unspecified, uncomplicated; Z88.1 Allergy status to other antibiotic agents; Z88.8 Allergy status to other drugs, medicaments and biological substances; Z90.710 Acquired absence of both cervix and uterus
CPT/HCPCS: 99283

== ENCOUNTER 2025-03-18 04:40 | Emergency (ER) | payer MEDICAID ==
[~2025-03-18] VITALS: Ht 165.1 cm; Wt 45.5 kg
[~2025-03-18 04:40] MED LIST changes: -HYDR-3965 PO
[2025-03-18 04:45] VITALS: BP 109/61; PULSE 74; RESP 16; O2SAT 100
--- NOTE | 2025-03-18 06:21 | Physician Documentation ---
History of Present Illness General Chief Complaint: Medication Request Stated Complaint: EVAL Time Seen by MD: 06:18 Primary Medical Doctor: KITTY BOWEN History of Present Illness Initial Comments 64-year-old female states she is distraught over not getting her amitriptyline last night, she came to the emergency room. The patient states that she does not want a dose of amitriptyline right now she is just frustrated and she has no other chief complaint. Medication Reconciliation Allergies: Coded Allergies: meclizine (Verified Allergy, Severe, FACIAL EDEMA, 02/27/25) ciprofloxacin (Verified Allergy, Unknown, 02/27/25) Scheduled Albuterol Sulfate (Proventil Hfa), 2 PUFFS INH Q6H Albuterol Sulfate (Proventil Hfa), 2 PUFFS INH Q6H Amitriptyline Hcl (Amitriptyline Hcl), 50 MG PO HS, (Reported) Cephalexin (Keflex), 1 CAP PO Q8H, (Reported) Chlorpromazine HCl (Chlorpromazine HCl), 3 TAB PO HS, (Reported) Clindamycin HCL* (Clindamycin HCL*), 1 CAP PO Q6H Clindamycin HCl (Clindamycin HCl CAPSULE), 3 CAP PO TID Diphenhydramine Hcl (Benadryl), 25 MG PO BID PRN ITCHING, (Reported) Diphenhydramine Hcl (Benadryl), 1 CAP PO Q8H Doxycycline Hyclate (Doxycycline Hyclate), 1 CAP PO Q12H Fluticasone/Vilanterol (Breo Ellipta 200-25 Mcg INH), 1 PUFF INH DAILY Hydroxyzine Hcl (Atarax), 25 MG PO Q8H Ivermectin (Ivermectin), 3 TAB PO ONCE Lactobac Cmb #3/Fos/Pantethine (Probiotic & Acidophilus Cap), 1 CAP PO DAILY Loperamide HCl (Imodium A-D), 1 CAP PO Q8H Loperamide Hcl (Loperamide), 1 TAB PO PRN Meclizine HCl (Meclizine HCl), 1 TAB PO Q8H Meclizine HCl (Meclizine HCl), 1 TAB PO Q8H Meclizine HCl (Meclizine HCl), 1 TAB PO BID Meclizine HCl (Meclizine HCl), 1 TAB PO TID PRN Miconazole Nitrate (Monistat 7), 1 APPLICATOR VG HS Mupirocin Calcium (Mupirocin), 1 GM TOP BID Naproxen (Naproxen), 1 TAB PO Q12H, (Reported) Nitrofurantoin Macrocrystal (Nitrofurantoin), 100 MG PO BID ONDANSETRON ODT 4mg tablet (Ondansetron Odt), 1 TABLET PO Q6H Omeprazole (Omeprazole), 1 TAB PO DAILY, (Reported) Ondansetron Hcl (Zofran), 1 TAB PO Q8H Paliperidone Palmitate (Invega Sustenna), 1 SYR IM Q30D Pantoprazole Sodium (PROTONIX tablet), 1 TAB PO DAILY Permethrin (Lice Treatment), 1 APPLIC TOP ONCE Permethrin (Permethrin), 2 APPLIC TOP ONCE Permethrin 5% Cream* (Elimite 5% Cream*), 1 APPLIC TP ONCE, (Reported) Phenazopyridine HCl (Pyridium), 1 TAB PO Q8H Pip Butox/Pyrethrins/Permeth (Rid Complete Lice Kit), 1 EACH TP ONCE Pip Butox/Pyrethrins/Permeth (Rid Complete 1-2-3 Lice Kit), 1 EACH TP DAILY Piperonyl Butoxide/Pyrethrins (Rid Lice Killing Shampoo), 1 BOTTLE TOP BID Ranitidine HCl (Zantac), 1 TAB PO Q12H Scheduled PRN Albuterol Sulfate (Proair Hfa), 2 PUFFS IH Q4H PRN for SOB or wheezing Camphor (Benadryl Anti-Itch), 85 GM TP Q6H PRN for itching Cyclobenzaprine* (Cyclobenzaprine*), 1 TABLET PO Q8H PRN for muscle spasms Diazepam (Diazepam), 1 TAB PO Q8H PRN for anxiety, (Reported) Diazepam (Diazepam), 1 TAB PO TID PRN PRN for anxiety Hydrocodone/Acetaminophen ([place]o 5-325 Tablet), 1 TAB PO TID PRN PRN for pain ONDANSETRON ODT 4mg tablet (Ondansetron Odt), 1 TABLET PO Q6H PRN for nausea/vomiting ONDANSETRON ODT 4mg tablet (Ondansetron Odt), 1 TABLET PO Q6H PRN for nausea/vomiting Ondansetron (Zofran Odt), 8 MG PO QID PRN for nausea/vomiting Ondansetron (Zofran Odt), 4 MG PO Q6H PRN for nausea/vomiting Ondansetron 8mg ODT (Ondansetron Odt), 1 TAB PO TID PRN for nausea Oxycodone HCl/Acetaminophen (Percocet 5-325 mg Tablet), 1 TAB PO Q12H PRN PRN for pain Prochlorperazine Maleate (Compazine), 1 TAB PO TID PRN for dizziness/vertigo Miscellaneous Medications [albut] Past Medical History Past Medical History: Vertigo, *PULMONARY*, Pneumonia, Cholelithiasis, GERD, H epatitis C, *RENAL/*, UTI, Chronic Pain, Chronic Back Pain, MRSA Abscess, Anxiety, Depression, Schizophrenia Past Surgical History: hysterectomy, tonsillectomy, tubal ligation Smoking: Cigarettes, Greater than 1 pack/day Alcohol Use: None Drug Use: marijuana, methamphetamine Lives with: Alone Lives In: Homeless Occupation: unemployed, disabled Review of Systems All Other Systems at this time: Reviewed and Negative Physical Exam Physical Exam Vital Signs: Temperature: 97.8, Source: Temporal, Heart Rate: 74, Respiratory Rate: 16, BP: 109/61, Pulse Oximetry: 100, Weight: 45.500 Physical Exam VITALS: Reviewed and as above. GENERAL: Alert, no apparent distress. HEENT: Normocephalic, atraumatic, PERRL, EOMI, dry mucosa, no erythema BACK: No CVA tenderness, or swelling MUSCULOSKELETAL: No deformities, no edema SKIN: Warm and dry, no rash NEURO: Oriented x4, No motor or sensory deficit PSYCH: Tearful anxious and slightly agitated Progress Results/Orders Results/Orders Vital Signs 03/18/25 03/18/25 04:45 06:28 Temp 97.8 97.8 Pulse 74 Resp 16 B/P (MAP) 109/61 Pulse Ox 100 Medical Decision Making Additional information obtaine: old records Findings The patient came here because she was frustrated for not being able to get her amitriptyline last night, she decided she does not want a dose of amitriptyline now because it would make her fall asleep I asked her if there was anything else I could do for her and she said there was not the patient is leaving she was verbally discharged the patient's pulse oximetry was reviewed was interpreted as normal and adequate and prior hospitalizations has been reviewed. Differential Diagnosis Malingering, psychosis Departure Disposition: HOME / SELF CARE / HOMELESS Impression: Primary Impression: General medical exam Discharge Instructions: Medical Screening Exam Referrals: NO PRIMARY CARE PROVIDER (PCP) Signature Scribe Signature: no scribe Attestation: The note accurately reflects work and decisions made by me.Steffi Almodovar MD 03/19/25 07:53 STEFFI ALMODOVAR MD Mar 18, 2025 06:21
[2025-03-18 06:28] VITALS: TEMP 97.8
== END 2025-03-18 06:36 | disposition home or self-care (01) ==
LOC: ER 04:40
DX: Z00.00 Encounter for general adult medical examination without abnormal findings (principal); F12.90 Cannabis use, unspecified, uncomplicated; F20.9 Schizophrenia, unspecified; G89.29 Other chronic pain; F15.90 Other stimulant use, unspecified, uncomplicated; F17.210 Nicotine dependence, cigarettes, uncomplicated; F41.9 Anxiety disorder, unspecified; F32.A Depression, unspecified; K21.9 Gastro-esophageal reflux disease without esophagitis; Z59.00 Homelessness unspecified; Z88.1 Allergy status to other antibiotic agents; Z88.8 Allergy status to other drugs, medicaments and biological substances; Z90.710 Acquired absence of both cervix and uterus; Z87.440 Personal history of urinary (tract) infections; Z86.19 Personal history of other infectious and parasitic diseases; Z86.14 Personal history of Methicillin resistant Staphylococcus aureus infection; Z79.899 Other long term (current) drug therapy; Z56.0 Unemployment, unspecified; Z60.2 Problems related to living alone
CPT/HCPCS: 99282

== ENCOUNTER 2025-04-19 16:05 | Emergency (ER) | payer MEDICAID ==
--- NOTE | 2025-04-19 16:17 | Physician Documentation ---
History of Present Illness Stated Complaint: UTI/STD Primary Medical Doctor: KITTY BOWEN EVITA Patient is a 62-year-old female that presents to the emergency department for evaluation of symptoms that she refuses to disclose with the triage nurse at this time. Patient is agitated and uncooperative with the triage nurse and yelling. Triage nurse has asked the patient to leave into return when she can be appropriate and be helpful in our attempts to help manage her care and assist her in her needs. Medication Reconciliation Allergies: Coded Allergies: meclizine (Verified Allergy, Severe, FACIAL EDEMA, 02/27/25) ciprofloxacin (Verified Allergy, Unknown, 02/27/25) Scheduled Albuterol Sulfate (Proventil Hfa), 2 PUFFS INH Q6H Albuterol Sulfate (Proventil Hfa), 2 PUFFS INH Q6H Amitriptyline Hcl (Amitriptyline Hcl), 50 MG PO HS, (Reported) Cephalexin (Keflex), 1 CAP PO Q8H, (Reported) Chlorpromazine HCl (Chlorpromazine HCl), 3 TAB PO HS, (Reported) Clindamycin HCL* (Clindamycin HCL*), 1 CAP PO Q6H Clindamycin HCl (Clindamycin HCl CAPSULE), 3 CAP PO TID Diphenhydramine Hcl (Benadryl), 25 MG PO BID PRN ITCHING, (Reported) Diphenhydramine Hcl (Benadryl), 1 CAP PO Q8H Doxycycline Hyclate (Doxycycline Hyclate), 1 CAP PO Q12H Fluticasone/Vilanterol (Breo Ellipta 200-25 Mcg INH), 1 PUFF INH DAILY Hydroxyzine Hcl (Atarax), 25 MG PO Q8H Ivermectin (Ivermectin), 3 TAB PO ONCE Lactobac Cmb #3/Fos/Pantethine (Probiotic & Acidophilus Cap), 1 CAP PO DAILY Loperamide HCl (Imodium A-D), 1 CAP PO Q8H Loperamide Hcl (Loperamide), 1 TAB PO PRN Meclizine HCl (Meclizine HCl), 1 TAB PO Q8H Meclizine HCl (Meclizine HCl), 1 TAB PO Q8H Meclizine HCl (Meclizine HCl), 1 TAB PO BID Meclizine HCl (Meclizine HCl), 1 TAB PO TID PRN Miconazole Nitrate (Monistat 7), 1 APPLICATOR VG HS Mupirocin Calcium (Mupirocin), 1 GM TOP BID Naproxen (Naproxen), 1 TAB PO Q12H, (Reported) Nitrofurantoin Macrocrystal (Nitrofurantoin), 100 MG PO BID ONDANSETRON ODT 4mg tablet (Ondansetron Odt), 1 TABLET PO Q6H Omeprazole (Omeprazole), 1 TAB PO DAILY, (Reported) Ondansetron Hcl (Zofran), 1 TAB PO Q8H Paliperidone Palmitate (Invega Sustenna), 1 SYR IM Q30D Pantoprazole Sodium (PROTONIX tablet), 1 TAB PO DAILY Permethrin (Lice Treatment), 1 APPLIC TOP ONCE Permethrin (Permethrin), 2 APPLIC TOP ONCE Permethrin 5% Cream* (Elimite 5% Cream*), 1 APPLIC TP ONCE, (Reported) Phenazopyridine HCl (Pyridium), 1 TAB PO Q8H Pip Butox/Pyrethrins/Permeth (Rid Complete Lice Kit), 1 EACH TP ONCE Pip Butox/Pyrethrins/Permeth (Rid Complete 1-2-3 Lice Kit), 1 EACH TP DAILY Piperonyl Butoxide/Pyrethrins (Rid Lice Killing Shampoo), 1 BOTTLE TOP BID Ranitidine HCl (Zantac), 1 TAB PO Q12H Scheduled PRN Albuterol Sulfate (Proair Hfa), 2 PUFFS IH Q4H PRN for SOB or wheezing Camphor (Benadryl Anti-Itch), 85 GM TP Q6H PRN for itching Cyclobenzaprine* (Cyclobenzaprine*), 1 TABLET PO Q8H PRN for muscle spasms Diazepam (Diazepam), 1 TAB PO Q8H PRN for anxiety, (Reported) Diazepam (Diazepam), 1 TAB PO TID PRN PRN for anxiety Hydrocodone/Acetaminophen ([place] 5-325 Tablet), 1 TAB PO TID PRN PRN for pain ONDANSETRON ODT 4mg tablet (Ondansetron Odt), 1 TABLET PO Q6H PRN for nausea/vomiting ONDANSETRON ODT 4mg tablet (Ondansetron Odt), 1 TABLET PO Q6H PRN for nausea/vomiting Ondansetron (Zofran Odt), 8 MG PO QID PRN for nausea/vomiting Ondansetron (Zofran Odt), 4 MG PO Q6H PRN for nausea/vomiting Ondansetron 8mg ODT (Ondansetron Odt), 1 TAB PO TID PRN for nausea Oxycodone HCl/Acetaminophen (Percocet 5-325 mg Tablet), 1 TAB PO Q12H PRN PRN for pain Prochlorperazine Maleate (Compazine), 1 TAB PO TID PRN for dizziness/vertigo Miscellaneous Medications [albut] Past Medical History Past Medical History: Vertigo, *PULMONARY*, Pneumonia, Cholelithiasis, GERD, Hepatitis C, *RENAL/*, UTI, Chronic Pain, Chronic Back Pain, MRSA Abscess, Anxiety, Depression, Schizophrenia Past Surgical History: hysterectomy, tonsillectomy, tubal ligation Alcohol Use: None Drug Use: marijuana, methamphetamine Lives with: Alone Lives In: Homeless Occupation: unemployed, disabled Departure Referrals: NO PRIMARY CARE PROVIDER (PCP) MARISELA MORE Apr 19, 2025 16:17
== END 2025-04-19 16:20 | disposition left against medical advice (07) ==
LOC: ER 16:06
DX: R41.0 Disorientation, unspecified (principal); G89.29 Other chronic pain; F20.9 Schizophrenia, unspecified; F41.9 Anxiety disorder, unspecified; F32.A Depression, unspecified; K21.9 Gastro-esophageal reflux disease without esophagitis; F12.90 Cannabis use, unspecified, uncomplicated; F15.90 Other stimulant use, unspecified, uncomplicated; Z86.14 Personal history of Methicillin resistant Staphylococcus aureus infection; Z86.19 Personal history of other infectious and parasitic diseases; Z87.01 Personal history of pneumonia (recurrent); Z88.1 Allergy status to other antibiotic agents; Z90.710 Acquired absence of both cervix and uterus; Z87.440 Personal history of urinary (tract) infections; Z79.899 Other long term (current) drug therapy; Z59.00 Homelessness unspecified; Z56.0 Unemployment, unspecified; Z98.51 Tubal ligation status; Z53.21 Procedure and treatment not carried out due to patient leaving prior to being seen by health care provider

== ENCOUNTER 2025-04-26 12:43 | Emergency (ER) | payer MEDICAID ==
[~2025-04-26] VITALS: Ht 165.1 cm; Wt 45.0 kg
[2025-04-26 13:09] VITALS: BP 137/80; PULSE 87; RESP 15; TEMP 97.8; O2SAT 98
--- NOTE | 2025-04-26 14:35 | Physician Documentation ---
History of Present Illness ~ Chief Complaint: Anxiety Stated Complaint: ANXIETY Time Seen by MD: 14:30 OK to notify your PCP?: Yes Primary Medical Doctor: KITTY BOWEN Source: patient Mode of Arrival: POV Exam Limitations: no limitations HPI This is a 64-year-old female with a psychiatric history coming in stating she is feeling anxious and requesting Valium. The patient is in his very agitated and combative with the nursing staff. Medication Reconciliation Allergies: Coded Allergies: meclizine (Verified Allergy, Severe, FACIAL EDEMA, 04/26/25) ciprofloxacin (Verified Allergy, Unknown, 04/26/25) Scheduled Albuterol Sulfate (Proventil Hfa), 2 PUFFS INH Q6H Albuterol Sulfate (Proventil Hfa), 2 PUFFS INH Q6H Amitriptyline Hcl (Amitriptyline Hcl), 50 MG PO HS, (Reported) Cephalexin (Keflex), 1 CAP PO Q8H, (Reported) Chlorpromazine HCl (Chlorpromazine HCl), 3 TAB PO HS, (Reported) Clindamycin HCL* (Clindamycin HCL*), 1 CAP PO Q6H Clindamycin HCl (Clindamycin HCl CAPSULE), 3 CAP PO TID Diphenhydramine Hcl (Benadryl), 25 MG PO BID PRN ITCHING, (Reported) Diphenhydramine Hcl (Benadryl), 1 CAP PO Q8H Doxycycline Hyclate (Doxycycline Hyclate), 1 CAP PO Q12H Fluticasone/Vilanterol (Breo Ellipta 200-25 Mcg INH), 1 PUFF INH DAILY Hydroxyzine Hcl (Atarax), 25 MG PO Q8H Ivermectin (Ivermectin), 3 TAB PO ONCE Lactobac Cmb #3/Fos/Pantethine (Probiotic & Acidophilus Cap), 1 CAP PO DAILY Loperamide HCl (Imodium A-D), 1 CAP PO Q8H Loperamide Hcl (Loperamide), 1 TAB PO PRN Meclizine HCl (Meclizine HCl), 1 TAB PO Q8H Meclizine HCl (Meclizine HCl), 1 TAB PO Q8H Meclizine HCl (Meclizine HCl), 1 TAB PO BID Meclizine HCl (Meclizine HCl), 1 TAB PO TID PRN Miconazole Nitrate (Monistat 7), 1 APPLICATOR VG HS Mupirocin Calcium (Mupirocin), 1 GM TOP BID Naproxen (Naproxen), 1 TAB PO Q12H, (Reported) Nitrofurantoin Macrocrystal (Nitrofurantoin), 100 MG PO BID ONDANSETRON ODT 4mg tablet (Ondansetron Odt), 1 TABLET PO Q6H Omeprazole (Omeprazole), 1 TAB PO DAILY, (Reported) Ondansetron Hcl (Zofran), 1 TAB PO Q8H Paliperidone Palmitate (Invega Sustenna), 1 SYR IM Q30D Pantoprazole Sodium (PROTONIX tablet), 1 TAB PO DAILY Permethrin (Lice Treatment), 1 APPLIC TOP ONCE Permethrin (Permethrin), 2 APPLIC TOP ONCE Permethrin 5% Cream* (Elimite 5% Cream*), 1 APPLIC TP ONCE, (Reported) Phenazopyridine HCl (Pyridium), 1 TAB PO Q8H Pip Butox/Pyrethrins/Permeth (Rid Complete Lice Kit), 1 EACH TP ONCE Pip Butox/Pyrethrins/Permeth (Rid Complete 1-2-3 Lice Kit), 1 EACH TP DAILY Piperonyl Butoxide/Pyrethrins (Rid Lice Killing Shampoo), 1 BOTTLE TOP BID Ranitidine HCl (Zantac), 1 TAB PO Q12H Scheduled PRN Albuterol Sulfate (Proair Hfa), 2 PUFFS IH Q4H PRN for SOB or wheezing Camphor (Benadryl Anti-Itch), 85 GM TP Q6H PRN for itching Cyclobenzaprine* (Cyclobenzaprine*), 1 TABLET PO Q8H PRN for muscle spasms Diazepam (Diazepam), 1 TAB PO Q8H PRN for anxiety, (Reported) Diazepam (Diazepam), 1 TAB PO TID PRN PRN for anxiety Hydrocodone/Acetaminophen ([place] 5-325 Tablet), 1 TAB PO TID PRN PRN for pain ONDANSETRON ODT 4mg tablet (Ondansetron Odt), 1 TABLET PO Q6H PRN for nausea/vomiting ONDANSETRON ODT 4mg tablet (Ondansetron Odt), 1 TABLET PO Q6H PRN for nausea/vomiting Ondansetron (Zofran Odt), 8 MG PO QID PRN for nausea/vomiting Ondansetron (Zofran Odt), 4 MG PO Q6H PRN for nausea/vomiting Ondansetron 8mg ODT (Ondansetron Odt), 1 TAB PO TID PRN for nausea Oxycodone HCl/Acetaminophen (Percocet 5-325 mg Tablet), 1 TAB PO Q12H PRN PRN for pain Prochlorperazine Maleate (Compazine), 1 TAB PO TID PRN for dizziness/vertigo Miscellaneous Medications [albut] Past Medical History Past Medical History: Vertigo, *PULMONARY*, Pneumonia, Cholelithiasis, GERD, Hepatitis C, *RENAL/*, UTI, Chronic Pain, Chronic Back Pain, MRSA Abscess, Anxiety, Depression, Schizophrenia Past Surgical History: hysterectomy, tonsillectomy, tubal ligation Alcohol Use: None Drug Use: marijuana, methamphetamine Lives with: Alone Lives In: Homeless Occupation: unemployed, disabled Physical Exam Vital Signs: Temperature: 97.8, Source: Temporal, Heart Rate: 87, Respiratory Rate: 15, BP: 137/80, Pulse Oximetry: 98, Weight: 45.000 General Appearance: alert, WD/WN, other (The patient is combative with the nursing staff and myself. She is yelling and not cooperative) Respiratory: no respiratory distress Chest: no accessory muscle use Neurologic: oriented x4, leather stitcher II-XII nml as tested, memory intact, oriented to time, oriented to person, oriented to place, oriented to events Motor / Sensory: no motor deficit Appearance/Memory/Insight: disheveled Behavior/Eye contact/Speech: threatening eye contact, compulsive, uncooperative Thought/Hallucinations: no apparent hallucination Affect: angry, violent Progress Results/Orders Results/Orders Vital Signs 04/26/25 13:09 Temp 97.8 Pulse 87 Resp 15 B/P (MAP) 137/80 Pulse Ox 98 Medical Decision Making Additional information obtaine: N/A Findings The patient was very agitated and uncooperative with the nursing staff. Ultimately she was excused from the ER by security. She was in no obvious acute distress. Differential Dx:Considerations: Include: Alcohol abuse, Anxiety, Bipolar disorder, Conversion disorder, Depression, Encephaloathy, Homicidal, Panic disorder, Personality disorder, Schizophrenia, Substance abuse, Suicidal, Other Differential Diagnosis Psychiatric issues. Acute anxiety. Acute agitation Departure Disposition: HOME / SELF CARE / HOMELESS Impression: Primary Impression: Agitation Condition: Stable Discharge Instructions: Emotional Crisis Referrals: NO PRIMARY CARE PROVIDER (PCP) Signature Scribe Signature: No scribe Attestation: The note accurately reflects work and decisions made by me.Theodore BRISENO 04/26/25 14:38 THEODORE AVINA Apr 26, 2025 14:35
== END 2025-04-26 14:39 | disposition home or self-care (01) ==
LOC: ER 12:45
DX: R45.1 Restlessness and agitation (principal); F41.9 Anxiety disorder, unspecified; F20.9 Schizophrenia, unspecified; G89.29 Other chronic pain; K21.9 Gastro-esophageal reflux disease without esophagitis; F32.A Depression, unspecified; F12.90 Cannabis use, unspecified, uncomplicated; F15.90 Other stimulant use, unspecified, uncomplicated; Z86.14 Personal history of Methicillin resistant Staphylococcus aureus infection; Z86.19 Personal history of other infectious and parasitic diseases; Z87.01 Personal history of pneumonia (recurrent); Z87.440 Personal history of urinary (tract) infections; Z88.1 Allergy status to other antibiotic agents; Z90.710 Acquired absence of both cervix and uterus; Z88.8 Allergy status to other drugs, medicaments and biological substances; Z79.899 Other long term (current) drug therapy; Z59.00 Homelessness unspecified; Z56.0 Unemployment, unspecified; Z60.2 Problems related to living alone
CPT/HCPCS: 99281; 99282

== ENCOUNTER 2025-05-06 21:54 | Emergency (ER) | payer MEDICAID ==
[2025-05-08] MEDS ORDERED: PROP10TA10 PO (09:45)
== END 2025-05-06 22:50 | disposition left against medical advice (07) ==
LOC: ER 21:55
DX: F41.9 Anxiety disorder, unspecified (principal); Z88.1 Allergy status to other antibiotic agents; Z88.8 Allergy status to other drugs, medicaments and biological substances; Z53.21 Procedure and treatment not carried out due to patient leaving prior to being seen by health care provider